=== PATIENT | female | born 1960 | race Two or more races ===

== ENCOUNTER 2024-11-20 14:02 | Inpatient (IN) | payer MEDICAID, OTHER ==
[~2024-11-20] VITALS: Ht 165.1 cm; Wt 96.5 kg
[2024-11-20] MEDS: ALBUTEROL SULF 2.5 MG/0.5ML(0.5%) NEB SOLN NEB ONE ×2 (15:27→20:37)
[2024-11-20] MEDS: IPRATROPIUM BROM 0.5 MG/2.5ML INH SOL NEB ONE ×2 (15:27→20:37)
--- NOTE | 2024-11-20 15:55 | DVH ---
EXAM: XY CHEST PORTABLE HISTORY: sob COMPARISON: None TECHNIQUE: Portable AP view of the chest was performed. FINDINGS: There is elevation of the right hemidiaphragm. There is central interstitial prominence. No pneumotho rax. The heart is not enlarged. IMPRESSION: 1. Central interstitial prominence may be due to reactive airways disease or mild CHF. 2. Elevated right hemidiaphragm.
[2024-11-20] MEDS: SODIUM CHLORIDE 0.9% 1,000 ML IV ONE (16:06)
--- NOTE | 2024-11-20 16:25 | ED.PDOC ---
SOB-HPI HPI Comments 64 year old female presents to the ED with chief complaint of Flu-like symptoms. Patient reports that she has been experiencing worsening SOB with associated cough and fever for the past 2 weeks. Patient relays that she has history of asthma and has been using albuterol, but is out of Advair. Patient states she is finding it hard to reach for things without holding her breath. Patient noted to be draining in the 80s on room air, now at 94% on 4L nasal cannula. Patient states she does not use oxygen at home. 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 Family History Family History: Reviewed,noncontributory to illness Social History Smoker: Non-Smoker Alcohol: Denies ETOH Use Drugs: Denies Drug Use Lives In: Home Constitutional: reports: fever; denies: chills, diaphoresis, fatigue, malaise, sweats, weakness, others EENTM: denies: blurred vision, double vision, ear bleeding, ear discharge, ear drainage, ear pain, ear ringing, eye pain, eye redness, hearing loss, mouth pain, mouth swelling, nasal discharge, nose bleeding, nose congestion, nose pain, photophobia, tearing, throat pain, throat swelling, voice changes, others Respiratory: reports: cough, shortness of breath; denies: hemoptysis, orthopnea, SOB at rest, SOB with excertion, stridor, wheezing, others Cardiovascular: denies: chest pain, dizzy spells, diaphoresis, Dyspnea on exertion, edema, irregular heart beat, left arm pain, lightheadedness, palpitations, PND, syncope, others Gastrointestinal: denies: abdomen distended, abdominal pain, blood streaked bowels, constipated, diarrhea, dysphagia, difficulty swallowing, hematemesis, melena, nausea, poor appetite, poor fluid intake, rectal bleeding, rectal pain, vomiting, others Genitourinary: denies: abnormal vagina bleeding, burning, dyspareunia, dysuria, flank pain, frequency, hematuria, incontinence, pain, , vagina discharge, urgency, others Neurological: denies: dizziness, fainting, headache, left sided numbness, left sided weakness, numbness, paresthesia, pre-existing deficit, right sided numbness, right sided weakness, seizure, speech problems, tingling, tremors, weakness, others Musculoskeletal: denies: back pain, gout, joint pain, joint swelling, muscle pain, muscle stiffness, neck pain, others Integumetry: denies: bruises, change in color, change in hair/nails, dryness, laceration, lesions, lumps, rash, wounds, others Allergic/Immunocompromised: denies: Difficulty Healing, Frequent Infections, Hives, Itching, others Hematologic/Lymphatic: denies: anemia, blood clots, easy bleeding, easy bruising, swollen glands, others Endocrine: denies: excessive hunger, excessive sweating, excessive thirst, excessive urination, flushing, intolerance to cold, intolerance to heat, unexplained weight gain, unexplained weight loss, others Psychiatric: denies: anxiety, bipolar disorder, depression, hopeless, panic disorder, schizophrenia, sleepless, suicidal, others All Other Systems: Reviewed and Negative Physical Exam General Appearance: No Apparent Distress HEENT: Other (Pupils and face symmetric. Moist mucous membranes.) Neck: Full Range of Motion, Normal Inspection Respiratory: Decreased Breath Sounds, No Accessory Muscle Use, No Respiratory Distress, Wheezing Cardiovascular: No Edema, No JVD, Regular Rate/Rhythm Breast Exam: Deferred Gastrointestinal: Non Tender, Soft Genitalia: Deferred Pelvic: Deferred Rectal: Deferred Extremities: Normal inspection, Normal range of motion, Non-tender, No pedal edema Neurologic: Alert (Oriented x4), Normal Affect, Normal Mood, Other (Ambulatory.) Cerebellar Function: NOT DONE Reflexes: NOT DONE Skin: Dry, Normal Color, Warm, NOT DONE Lymphatic: NOT DONE Was a procedure done? Was a procedure done?: No Differential Dx Differential Diagnosis: Asthma, Bronchitis, CHF, COPD, Dysrhythmia, Myocardial infarction, Pneumonia, Respiratory Distress, URI X-Ray, Labs, Meds, VS Vital Signs Date Time Temp Pulse Resp B/P (MAP) Pulse Ox O2 Delivery O2 Flow Rate FiO2 11/20/24 16:19 99.0 108 18 146/75 (98) 94 99.0 11/20/24 16:19 108 18 94 Room Air 4.0 11/20/24 15:27 18 99 Nasal Cannula* 4 36 11/20/24 14:29 120 11/20/24 14:27 100.2 126 18 133/101 (112) 88 100.2 Lab Test 11/20/24 18:26 11/20/24 17:27 11/20/24 17:15 Range/Units Troponin I High Sensitivity < 3 L < 3 L </=34 ng/L White Blood Count 8.7 4.4-10.8 10^3/uL Red Blood Count 4.40 4.0-5.20 10^6/uL Hemoglobin 13.1 12.2-16.2 g/dL Hematocrit 40.5 36.0-46.0 % Mean Corpuscular Volume 92.0 80.0-100.0 fL Mean Corpuscular Hemoglobin 29.9 28.0-32.0 pg Mean Corpuscular Hemoglobin Concent 32.5 32.0-36.0 g/dL Red Cell Distribution Width 13.3 11.8-14.3 % Platelet Count 262 140-450 10^3/uL Mean Platelet Volume 8.5 6.9-10.8 fL Neutrophils (%) (Auto) 60.7 37.0-80.0 % Lymphocytes (%) (Auto) 20.0 10.0-50.0 % Monocytes (%) (Auto) 7.4 0.0-12.0 % Eosinophils (%) (Auto) 11.0 H 0.0-7.0 % Basophils (%) (Auto) 0.9 0.0-2.0 % Neutrophils # (Auto) 5.3 1.6-8.6 10 ^3/uL Lymphocytes # (Auto) 1.7 0.4-5.4 10 ^3/uL Monocytes # (Auto) 0.6 0-1.3 10 ^3/uL Eosinophils # (Auto) 1.0 H 0-0.8 10 ^3/uL Basophils # (Auto) 0.1 0-0.2 10 ^3/uL Nucleated Red Blood Cells 0.0 % Sodium Level 142 136-145 mmol/L Potassium Level 5.0 3.5-5.1 mmol/L Chloride Level 106 98-107 mmol/L Carbon Dioxide Level 29 20-31 mmol/L Anion Gap 7 5-15 Blood Urea Nitrogen 16 9-23 mg/dL Creatinine 0.60 0.550-1.02 mg/dL Glomerular Filtration Rate Calc 101 >90 mL/min BUN/Creatinine Ratio 26.7 H 10.0-20.0 Serum Glucose 98 74-106 mg/dL Lactic Acid Level 1.8 0.4-2.0 mmol/L Calcium Level 9.7 8.7-10.4 mg/dL Total Bilirubin 0.3 0.2-1.0 mg/dL Aspartate Amino Transferase (AST) 28 13-40 U/L Alanine Aminotransferase (ALT) 21 7-40 U/L Alkaline Phosphatase 79 46-116 U/L Lactate Dehydrogenase 276 H 120-246 U/L C-Reactive Protein High Sensitivity 0.32 <1.0 mg/dL B-Type Natriuretic Peptide 12.88 0-100 pg/mL Total Protein 6.4 5.7-8.2 g/dL Albumin 4.3 3.2-4.8 g/dL Influenza Type A Antigen Negative Negative Influenza Type B Antigen Negative Negative SARS-CoV-2 Antigen (Rapid) Negative NEGATIVE Group A Streptococcus Rapid Negative Current Medications Medications (Trade) Dose Ordered Sig/Fabian Route Start Time Stop Time Status Last Admin Sodium Chloride 1,000 ml @ 1,000 mls/hr Q1H ONCE IV 11/20/24 15:15 11/20/24 16:14 DC 11/20/24 16:06 Albuterol (Ventolin Medneb) 5 mg ONCE ONCE NEB 11/20/24 15:15 11/20/24 15:16 DC 11/20/24 15:27 Ipratropium Aldie (Atrovent Medneb) 0.5 mg ONCE ONCE NEB 11/20/24 15:15 11/20/24 15:16 DC 11/20/24 15:27 Ceftriaxone Sodium 50 ml @ 100 mls/hr ONCE ONCE IV 11/20/24 20:00 11/20/24 20:32 DC 11/20/24 22:08 Azithromycin 250 ml @ 125 mls/hr ONCE ONCE IV 11/20/24 20:00 11/20/24 21:59 DC 11/20/24 22:24 Albuterol (Ventolin Medneb) 5 mg ONCE ONCE NEB 11/20/24 20:00 11/20/24 20:31 DC 11/20/24 20:37 Ipratropium Aldie (Atrovent Medneb) 0.5 mg ONCE ONCE NEB 11/20/24 20:00 11/20/24 20:31 DC 11/20/24 20:37 Albuterol (Ventolin Medneb) 2.5 mg Q6H NEB 11/20/24 20:15 11/21/24 00:40 Methylprednisolone Sodium Succinate (Solu Medrol) 125 mg ONCE ONCE IV 11/20/24 20:15 11/20/24 20:31 DC 11/20/24 22:08 PROCEDURE(s): CXRP - CHEST PORTABLE REASON: sob ORDER NUMBER(s): [id number], ACCESSION NUMBER(s): [id number] EXAM: XY CHEST PORTABLE HISTORY: sob COMPARISON: None TECHNIQUE: Portable AP view of the chest was performed. FINDINGS: There is elevation of the right hemidiaphragm. There is central interstitial prominence. No pneumothorax. The heart is not enlarged. IMPRESSION: 1. Central interstitial prominence may be due to reactive airways disease or mild CHF. 2. Elevated right hemidiaphragm. X-Ray, Labs, Meds, VS Comment 64-year-old female with a history of asthma complaining of difficulty breathing and found to have low oxygen saturation on room air Vitals remarkable for temperature 100.2, heart rate 126, BP 133/101, oxygen saturation 88% on room air Exam remarkable for wheezing and diminished breath sounds Rhythm strip independently interpreted by me: Sinus tach, rate 126, no ectopy. Chest x-ray IMPRESSION: 1. Central interstitial prominence may be due to reactive airways disease or mild CHF. 2. Elevated right hemidiaphragm. CBC, CMP, BNP and troponin unremarkable, influenza, strep and COVID negative. Lactic and blood cultures pending. Patient was treated with the following in the ED: 1 L 0.9 normal saline IV bolus, albuterol 5 mg/Atrovent 0.5 mg nebulized x2, Solu-Medrol 125 mg IV, Rocephin 1 g IV, Zithromax 500 mg IV On re-evaluation, patient states her shortness of breath has improved. She is saturating normally on 4 L nasal cannula. Plan is to admit the patient for respiratory support and pulmonology evaluation. Time of 1ST Reevaluation: 17:20 Reevaluation 1ST: Unchanged Patient Education/Counseling: Diagnosis, Treatment Family Education/Counseling: No Family Present Departure 1 Departure Time of Disposition: 20:03 Impression: Primary Impression: Acute respiratory failure Additional Impression: Asthma exacerbation Disposition: 09 ADMITTED INPATIENT Admit to: Tele Condition: Guarded Critical Care Note Critical Care Time?: No Stability Stability form required: No Heart Score Heart Score: Heart Score Response (Comments) Value History N/A 0 EKG N/A 0 Age N/A 0 Risk Factors N/A 0 Troponin N/A 0 Total 0 I personally scribed for DEBORAH TERRELL MD ([email or web address]) on 11/20/24 at 16:25. Electronically submitted by Manpreet Alford ([email or web address]). I personally scribed for DEBORAH TERRELL MD ([email or web address]) on 11/20/24 at 19:40. Electronically submitted by Dada Miller ([email or web address]). DEBORAH TERRELL MD Nov 20, 2024 16:25
[2024-11-20 17:49] LABS: COVID19 ANTIGEN SOFIA FIA NEGATIVE (NEGATIVE); Rapid Influenza A Negative (Negative); Rapid Influenza B Negative (Negative)
[2024-11-20 17:55] LABS: Rapid Strep A Screen-Throat Negative
[2024-11-20 17:56] LABS: Basophils # (auto) 0.1 10 ^3/uL (0-0.2); Basophils % (auto) 0.9 % (0.0-2.0); Hematocrit 40.5 % (36.0-46.0); Hemoglobin 13.1 g/dL (12.2-16.2); Lymphocytes # (auto) 1.7 10 ^3/uL (0.4-5.4); Mean Corpuscular Hemoglobin 29.9 pg (28.0-32.0); Mean Corpuscular Hgb Conc. 32.5 g/dL (32.0-36.0); Monocytes # (auto) 0.6 10 ^3/uL (0-1.3); Monocytes % (auto) 7.4 % (0.0-12.0); Neutrophils # (auto) 5.3 10 ^3/uL (1.6-8.6); Neutrophils % (auto) 60.7 % (37.0-80.0); Platelet Count (auto) 262 10^3/uL (140-450); Red Cell Distribution Width 13.3 % (11.8-14.3); White Blood Cell 8.7 10^3/uL (4.4-10.8)
[2024-11-20 18:16] LABS: Alanine Aminotransferase 21 U/L (7-40); Albumin 4.3 g/dL (3.2-4.8); Alkaline Phosphatase 79 U/L (46-116); Anion Gap 7 (5-15); Aspartate Aminotransferase 28 U/L (13-40); BUN/Creatinine Ratio 26.7 (10.0-20.0); Blood Urea Nitrogen 16 mg/dL (9-23); Calcium 9.7 mg/dL (8.7-10.4); Carbon Dioxide 29 mmol/L (20-31); Chloride 106 mmol/L (98-107); Glucose 98 mg/dL (74-106); Sodium 142 mmol/L (136-145); Total Protein 6.4 g/dL (5.7-8.2)
[2024-11-20 18:17] LABS: Bilirubin, Total 0.3 mg/dL (0.2-1.0)
[2024-11-20] MEDS ORDERED: ACETAMINOPHEN 325 MG TAB PO PRN (20:15)
[2024-11-20] MEDS ORDERED: ONDANSETRON HCL 4 MG/2 ML VIAL IV PRN (20:15)
[2024-11-20] MEDS ORDERED: DOCUSATE SOD 100 MG CAP PO PRN (20:15)
[2024-11-20] MEDS: ALBUTEROL SULF 2.5 MG/0.5ML(0.5%) NEB SOLN NEB SCH (20:15)
[2024-11-20] MEDS ORDERED: HYDROcodone-ACET 5/325MG TAB PO PRN (20:15)
--- NOTE | 2024-11-20 20:20 | DVHHP2 ---
Admitting Diagnosis: Shortness of breaths History of Present Illness 64 year old female presents to the ED with chief complaint of Flu-like symptoms. Patient reports that she has been experiencing worsening SOB with associated cough and fever for the past 2 weeks. Patient relays that she has history of asthma and has been using albuterol, but is out of Advair. Patient states she is finding it hard to reach for things without holding her breath. Patient noted to be draining in the 80s on room air, now at 94% on 4L nasal cannula. Patient states she does not use oxygen at home. 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 [employer]CTOR [employer] CHIROPRA[employer]IC Hx Family History Family History: Reviewed,noncontributory to illness Social History Smoker: Non-Smoker Alcohol: Denies ETOH Use Drugs: Denies Drug Use Lives In: Home Allergies: Coded Allergies: Sulfa Antibiotics (Verified Allergy, Severe, 11/20/24) Current Medications Current Medications Medications (Trade) Dose Ordered Sig/Fabian Route PRN Reason Start Time Stop Time Status Last Admin Sodium Chloride (Saline Lock Ns) 10 ml Q8HR IV 11/20/24 22:00 UNV Docusate Sodium (Colace Capsule) 100 mg BIDPRN PRN PO FOR CONSTIPATION 11/20/24 20:15 UNV Acetaminophen (Tylenol Tablet) 650 mg Q6HP PRN PO PAIN SCALE 1-3 OR TEMP>100.4 11/20/24 20:15 UNV Acetaminophen/ Hydrocodone Bitart (Steen 5/325MG Tab) 1 tab Q4HP PRN PO MODERATE PAIN (4-6 PAIN SCALE) 11/20/24 20:15 UNV Ondansetron HCl (Zofran) 4 mg Q4HP PRN IV NAUSEA / VOMITING 11/20/24 20:15 UNV Enoxaparin Sodium (Lovenox) 40 mg DAILY SC 11/21/24 10:00 UNV Albuterol (Ventolin Medneb) 2.5 mg Q6H NEB 11/20/24 20:15 UNV Prednisone 40 mg DAILY PO 11/21/24 10:00 UNV Vital Signs Vital Signs Date Time Temp Pulse Resp B/P (MAP) Pulse Ox O2 Delivery O2 Flow Rate FiO2 11/20/24 16:19 99.0 108 18 146/75 (98) 94 99.0 11/20/24 16:19 Room Air 4.0 11/20/24 15:27 36 Physical Exam Generally-74 years old woman, well nourished well developed. No apparent distress HEENT-atraumatic, normocephalic Heart-regular rate and rhythm lungs decreased breath sounds in lower lung vázquez Abdomen soft nontender nondistended Musculoskeletal-no edema cyanosis Neuro-AO x3, no focal deficits Results Labs Test 11/20/24 18:26 11/20/24 17:27 11/20/24 17:15 Range/Units Troponin I High Sensitivity < 3 L </=34 ng/L White Blood Count 8.7 4.4-10.8 10^3/uL Red Blood Count 4.40 4.0-5.20 10^6/uL Hemoglobin 13.1 12.2-16.2 g/dL Hematocrit 40.5 36.0-46.0 % Mean Corpuscular Volume 92.0 80.0-100.0 fL Mean Corpuscular Hemoglobin 29.9 28.0-32.0 pg Mean Corpuscular Hemoglobin Concent 32.5 32.0-36.0 g/dL Red Cell Distribution Width 13.3 11.8-14.3 % Platelet Count 262 140-450 10^3/uL Mean Platelet Volume 8.5 6.9-10.8 fL Neutrophils (%) (Auto) 60.7 37.0-80.0 % Lymphocytes (%) (Auto) 20.0 10.0-50.0 % Monocytes (%) (Auto) 7.4 0.0-12.0 % Eosinophils (%) (Auto) 11.0 H 0.0-7.0 % Basophils (%) (Auto) 0.9 0.0-2.0 % Neutrophils # (Auto) 5.3 1.6-8.6 10 ^3/uL Lymphocytes # (Auto) 1.7 0.4-5.4 10 ^3/uL Monocytes # (Auto) 0.6 0-1.3 10 ^3/uL Eosinophils # (Auto) 1.0 H 0-0.8 10 ^3/uL Basophils # (Auto) 0.1 0-0.2 10 ^3/uL Nucleated Red Blood Cells 0.0 % Sodium Level 142 136-145 mmol/L Potassium Level 5.0 3.5-5.1 mmol/L Chloride Level 106 98-107 mmol/L Carbon Dioxide Level 29 20-31 mmol/L Anion Gap 7 5-15 Blood Urea Nitrogen 16 9-23 mg/dL Creatinine 0.60 0.550-1.02 mg/dL Glomerular Filtration Rate Calc 101 >90 mL/min BUN/Creatinine Ratio 26.7 H 10.0-20.0 Serum Glucose 98 74-106 mg/dL Lactic Acid Level 1.8 0.4-2.0 mmol/L Calcium Level 9.7 8.7-10.4 mg/dL Total Bilirubin 0.3 0.2-1.0 mg/dL Aspartate Amino Transferase (AST) 28 13-40 U/L Alanine Aminotransferase (ALT) 21 7-40 U/L Alkaline Phosphatase 79 46-116 U/L B-Type Natriuretic Peptide 12.88 0-100 pg/mL Total Protein 6.4 5.7-8.2 g/dL Albumin 4.3 3.2-4.8 g/dL Influenza Type A Antigen Negative Negative Influenza Type B Antigen Negative Negative SARS-CoV-2 Antigen (Rapid) Negative NEGATIVE Group A Streptococcus Rapid Negative Primary Diagnosis Acute upper respiratory syndrome asthma exacerbation Plan Check VBG Chest x-ray is clear Solu-Medrol 25 mg IV push then 40 mg daily Duo nebs q.6 hours standing Monitor O2 saturation Full code Lovenox for DVT prophylaxis PPI for GI prophylaxis Plan discussed with: Patient Problems List: (1) Upper respiratory symptom (2) Acute respiratory failure Status: Acute Date of Service: Nov 20, 2024 Billing Provider: LIN IVY MD Common Visit Codes: [id number] INP/OBS CARE (MOD) LIN IVY MD Nov 20, 2024 20:20
[2024-11-20 20:38] VITALS: O2SAT 92
[2024-11-20] MEDS: IPRATROPIUM BROM 0.5 MG/2.5ML INH SOL ONE (20:42)
[2024-11-20] MEDS: ALBUTEROL SULF 2.5 MG/0.5ML(0.5%) NEB SOLN ONE (20:43)
[2024-11-20] MEDS: SODIUM CHLOR 0.9% PF (SALINE LOCK) 10ML VIAL/SYR IV SCH (22:08)
[2024-11-20] MEDS: methylPREDNISolone SOD SUCC 125 MG/2 ML VL IV ONE (22:08)
[2024-11-20] MEDS: cefTRIAXone 1GM/50ML D5W 50 ML IV ONE (22:08)
[2024-11-20 22:19] VITALS: PULSE 79; RESP 20; O2SAT 91
[2024-11-20] MEDS: AZITHROMYCIN 500MG/ 250ML 250 ML IV ONE (22:24)
[2024-11-20 22:39] VITALS: BP 163/85; PULSE 78; RESP 16; O2SAT 85; O2SAT 95
[2024-11-21] VITALS (18 sets, daily range): BP systolic 127–159; BP diastolic 66–84; PULSE 19–116; RESP 8–20; TEMP 97.7–98.4; O2SAT 91–99
[2024-11-21 05:57] LABS: Basophils # (auto) 0 10 ^3/uL (0-0.2); Basophils % (auto) 0.4 % (0.0-2.0); Eosinophils # (auto) 0 10 ^3/uL (0-0.8); Eosinophils % (auto) 0.1 % (0.0-7.0); Hematocrit 40.6 % (36.0-46.0); Hemoglobin 13.7 g/dL (12.2-16.2); Lymphocytes # (auto) 0.5 10 ^3/uL (0.4-5.4); Lymphocytes % (auto) 5.6 % (10.0-50.0); Mean Corpuscular Hgb Conc. 33.7 g/dL (32.0-36.0); Monocytes # (auto) 0.1 10 ^3/uL (0-1.3); Monocytes % (auto) 0.7 % (0.0-12.0); Neutrophils % (auto) 93.2 % (37.0-80.0); Nucleated Red Blood Cells % 0.1 %; Platelet Count (auto) 265 10^3/uL (140-450); Red Blood Cells 4.42 10^6/uL (4.0-5.20); Red Cell Distribution Width 13.3 % (11.8-14.3); White Blood Cell 9.6 10^3/uL (4.4-10.8)
[2024-11-21 06:19] LABS: Alanine Aminotransferase 16 U/L (7-40); Alkaline Phosphatase 82 U/L (46-116); Anion Gap 8 (5-15); BUN/Creatinine Ratio 20.3 (10.0-20.0); Blood Urea Nitrogen 15 mg/dL (9-23); Calcium 9.9 mg/dL (8.7-10.4); Carbon Dioxide 28 mmol/L (20-31); Chloride 106 mmol/L (98-107); Potassium 4.8 mmol/L (3.5-5.1); Sodium 142 mmol/L (136-145); Total Protein 7.1 g/dL (5.7-8.2)
[2024-11-21 06:20] LABS: Albumin 4.6 g/dL (3.2-4.8)
[2024-11-21 06:21] LABS: Aspartate Aminotransferase 19 U/L (13-40); Bilirubin, Total 0.4 mg/dL (0.2-1.0)
[2024-11-21 06:27] LABS: Glucose 137 mg/dL (74-106)
[2024-11-21] MEDS: predniSONE 20 MG TAB PO SCH (09:44)
[2024-11-21] MEDS: ENOXAPARIN SOD 40 MG/0.4 ML SYRINGE SC SCH (09:45)
--- NOTE | 2024-11-21 11:46 | DVHPN2 ---
Reviewed: Care Plan, H&P, Labs, Medications, Previous Orders, Radiology Changes from previous H/P or p: No Changes Objective Vitals Vital Signs Date Time Temp Pulse Resp B/P (MAP) Pulse Ox O2 Delivery O2 Flow Rate FiO2 11/21/24 11:39 105 18 98 11/21/24 11:31 Nasal Cannula 2.0 11/21/24 11:31 28 11/21/24 09:00 97.7 156/84 (108) 97.7 Intake/Output Intake and Output 11/21/24 07:00 Intake Total 200 ml Balance 200 ml Intake Oral 200 ml # Voids 2 # Bowel Movements 1 Medications Current Medications Medications Dose Ordered Sig/Fabian Route Start Time Stop Time Status Last Admin Dose Admin Sodium Chloride 10 ml Q8HR IV 11/20/24 22:00 11/21/24 05:33 10 ML Docusate Sodium 100 mg BIDPRN PRN PO 11/20/24 20:15 Acetaminophen 650 mg Q6HP PRN PO 11/20/24 20:15 Acetaminophen/ Hydrocodone Bitart 1 tab Q4HP PRN PO 11/20/24 20:15 Ondansetron HCl 4 mg Q4HP PRN IV 11/20/24 20:15 Enoxaparin Sodium 40 mg DAILY SC 11/21/24 10:00 11/21/24 09:45 40 MG Albuterol 2.5 mg Q6H NEB 11/20/24 20:15 11/21/24 11:30 2.5 MG Prednisone 40 mg DAILY PO 11/21/24 10:00 11/21/24 09:44 40 MG Laboratory Results Laboratory Tests 11/21/24 04:49 Chemistry Test 11/20/24 17:27 11/21/24 04:49 Albumin 4.3 g/dL (3.2-4.8) 4.6 g/dL (3.2-4.8) Calcium Level 9.7 mg/dL (8.7-10.4) 9.9 mg/dL (8.7-10.4) Total Protein 6.4 g/dL (5.7-8.2) 7.1 g/dL (5.7-8.2) Cardiac Markers Test 11/20/24 17:27 B-Type Natriuretic Peptide 12.88 pg/mL (0-100) LFT Test 11/20/24 17:27 11/21/24 04:49 Alanine Aminotransferase (ALT) 21 U/L (7-40) 16 U/L (7-40) Alkaline Phosphatase 79 U/L (46-116) 82 U/L (46-116) Aspartate Amino Transferase (AST) 28 U/L (13-40) 19 U/L (13-40) Total Bilirubin 0.3 mg/dL (0.2-1.0) 0.4 mg/dL (0.2-1.0) Blood Gas Results Test 11/20/24 20:35 FiO2 % 21.0 Labs and/or images reviewed: Labs reviewed by me, Image(s) reviewed by me Assessment/Plan Assessment/Plan Hypoxic respiratory failure Asthma exacerbation: Albuterol Atrovent Solu-Medrol Possible community-acquired pneumonia: Rocephin Homeless: Social service consult Plan discussed with: Patient Date of Service: Nov 21, 2024 Billing Provider: ESAU WYATT MD Common Visit Codes: [id number] INP/OBS CARE(HIGH) ESAU WYATT MD Nov 21, 2024 11:46
[2024-11-21 12:17] LABS: Urine Bacteria None Seen /hpf (None Seen)
[2024-11-21 12:38] LABS: Urine Blood Negative /uL (Negative); Urine Clarity Clear (Clear); Urine Color Light-Yellow (Yellow); Urine Protein, UAD Negative (Negative); Urine Specific Gravity 1.017 (1.001-1.035); Urine Squamous Epithelial Cell FEW /hpf (<5); Urine Urobilinogen Normal (Negative); Urine WBC 14 /HPF (0-5); Urine pH 6.5 (5.0-9.0)
[2024-11-21] MEDS: cefTRIAXone 1GM/50ML D5W 50 ML IV ONE (14:09)
[2024-11-22] VITALS (17 sets, daily range): BP systolic 114–155; BP diastolic 55–83; PULSE 71–92; RESP 16–20; TEMP 98.2–98.9; O2SAT 20–100
[2024-11-22 07:40] LABS: Alanine Aminotransferase 19 U/L (7-40); Albumin 4.2 g/dL (3.2-4.8); Alkaline Phosphatase 72 U/L (46-116); Anion Gap 10 (5-15); Aspartate Aminotransferase 18 U/L (13-40); BUN/Creatinine Ratio 36.5 (10.0-20.0); Blood Urea Nitrogen 23 mg/dL (9-23); Calcium 9.7 mg/dL (8.7-10.4); Carbon Dioxide 27 mmol/L (20-31); Chloride 105 mmol/L (98-107); Glucose 102 mg/dL (74-106); Potassium 4.6 mmol/L (3.5-5.1); Sodium 142 mmol/L (136-145); Total Protein 6.3 g/dL (5.7-8.2)
[2024-11-22 07:41] LABS: Bilirubin, Total 0.3 mg/dL (0.2-1.0)
[2024-11-22 07:47] LABS: Basophils # (auto) 0 10 ^3/uL (0-0.2); Basophils % (auto) 0.4 % (0.0-2.0); Eosinophils # (auto) 0 10 ^3/uL (0-0.8); Eosinophils % (auto) 0.4 % (0.0-7.0); Hematocrit 38.4 % (36.0-46.0); Hemoglobin 12.7 g/dL (12.2-16.2); Lymphocytes # (auto) 1.7 10 ^3/uL (0.4-5.4); Lymphocytes % (auto) 12.9 % (10.0-50.0); Mean Corpuscular Hemoglobin 30.4 pg (28.0-32.0); Mean Corpuscular Volume 92.3 fL (80.0-100.0); Monocytes # (auto) 0.8 10 ^3/uL (0-1.3); Monocytes % (auto) 6.4 % (0.0-12.0); Neutrophils # (auto) 10.4 10 ^3/uL (1.6-8.6); Neutrophils % (auto) 79.9 % (37.0-80.0); Nucleated Red Blood Cells % 0.1 %; Platelet Count (auto) 242 10^3/uL (140-450); Red Blood Cells 4.16 10^6/uL (4.0-5.20); Red Cell Distribution Width 13.5 % (11.8-14.3); White Blood Cell 12.9 10^3/uL (4.4-10.8)
--- NOTE | 2024-11-22 08:26 | DVHPN2 ---
Reviewed: Care Plan, H&P, Labs, Medications, Previous Orders, Radiology Changes from previous H/P or p: No Changes Objective Vitals Vital Signs Date Time Temp Pulse Resp B/P (MAP) Pulse Ox O2 Delivery O2 Flow Rate FiO2 11/22/24 07:17 71 18 20 11/22/24 07:13 Nasal Cannula* 2 28 11/22/24 05:00 98.2 121/81 (94) 98.2 Intake/Output Intake and Output 11/22/24 07:00 Intake Total 1400 ml Balance 1400 ml Intake Oral 1350 ml IV Total 50 ml # Voids 8 # Bowel Movements 1 Medications Current Medications Medications Dose Ordered Sig/Fabian Route Start Time Stop Time Status Last Admin Dose Admin Sodium Chloride 10 ml Q8HR IV 11/20/24 22:00 11/22/24 05:39 10 ML Docusate Sodium 100 mg BIDPRN PRN PO 11/20/24 20:15 Acetaminophen 650 mg Q6HP PRN PO 11/20/24 20:15 Acetaminophen/ Hydrocodone Bitart 1 tab Q4HP PRN PO 11/20/24 20:15 Ondansetron HCl 4 mg Q4HP PRN IV 11/20/24 20:15 Enoxaparin Sodium 40 mg DAILY SC 11/21/24 10:00 11/21/24 09:45 40 MG Albuterol 2.5 mg Q6H NEB 11/20/24 20:15 11/22/24 07:13 2.5 MG Prednisone 40 mg DAILY PO 11/21/24 10:00 11/21/24 09:44 40 MG Laboratory Results Laboratory Tests 11/22/24 06:27 Chemistry Test 11/22/24 06:27 Albumin 4.2 g/dL (3.2-4.8) Calcium Level 9.7 mg/dL (8.7-10.4) Total Protein 6.3 g/dL (5.7-8.2) LFT Test 11/22/24 06:27 Alanine Aminotransferase (ALT) 19 U/L (7-40) Alkaline Phosphatase 72 U/L (46-116) Aspartate Amino Transferase (AST) 18 U/L (13-40) Total Bilirubin 0.3 mg/dL (0.2-1.0) Urinalysis Test 11/21/24 12:15 Urine Color Light-yellow (Yellow) Urine Clarity Clear (Clear) Urine pH 6.5 (5.0-9.0) Urine Specific [place] 1.017 (1.001-1.035) Urine Protein Negative (Negative) Urine Ketones Negative (Negative) Urine Blood Negative /uL (Negative) Urine Nitrite Negative (Negative) Urine Bilirubin Negative (Negative) Urine Urobilinogen Normal mg/dL (Negative) Urine Leukocyte Esterase 3+ /uL (Negative) Urine RBC 2 /hpf (0 - 4) Urine Microscopic WBC 14 /HPF (0-5) H Urine Squamous Epithelial Cells Few /hpf (<5) Urine Bacteria None seen /hpf (None Seen) Urine Glucose Normal mg/dL (Normal) Microbiology Microbiology Date/Time Source Procedure Growth Status 11/20/24 17:27 Blood Blood Culture - Preliminary NO GROWTH AFTER 24 HOURS OF INCUBATION. Resulted 11/20/24 17:15 Throat Nose/Throat Culture - Preliminary Resulted Labs and/or images reviewed: Labs reviewed by me, Image(s) reviewed by me Assessment/Plan Assessment/Plan Hypoxic respiratory failure Asthma exacerbation: Albuterol Atrovent Solu-Medrol Possible community-acquired pneumonia: Rocephin, azithromycin History of COVID pneumonia History of RSV Homeless: Lives in a car. 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
--- NOTE | 2024-11-22 08:47 | ECG ---
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
[2024-11-22] MEDS: AZITHROMYCIN 500MG/ 250ML 250 ML IV SCH (09:27)
[2024-11-22] MEDS: cefTRIAXone 1GM/50ML D5W 50 ML IV SCH (09:27)
[2024-11-23] VITALS (17 sets, daily range): BP systolic 128–147; BP diastolic 54–85; PULSE 70–92; RESP 16–20; TEMP 97.9–98.7; O2SAT 95–100
[2024-11-23 06:29] LABS: Basophils # (auto) 0 10 ^3/uL (0-0.2); Basophils % (auto) 0.4 % (0.0-2.0); Eosinophils # (auto) 0 10 ^3/uL (0-0.8); Eosinophils % (auto) 0.3 % (0.0-7.0); Hematocrit 35.8 % (36.0-46.0); Hemoglobin 11.9 g/dL (12.2-16.2); Mean Corpuscular Hemoglobin 30.5 pg (28.0-32.0); Mean Corpuscular Hgb Conc. 33.1 g/dL (32.0-36.0); Mean Corpuscular Volume 91.9 fL (80.0-100.0); Monocytes # (auto) 0.6 10 ^3/uL (0-1.3); Neutrophils # (auto) 7.1 10 ^3/uL (1.6-8.6); Neutrophils % (auto) 72.3 % (37.0-80.0); Platelet Count (auto) 232 10^3/uL (140-450); Red Blood Cells 3.89 10^6/uL (4.0-5.20); Red Cell Distribution Width 13.3 % (11.8-14.3); White Blood Cell 9.7 10^3/uL (4.4-10.8)
[2024-11-23 06:41] LABS: Alanine Aminotransferase 17 U/L (7-40); Albumin 3.7 g/dL (3.2-4.8); Alkaline Phosphatase 60 U/L (46-116); Anion Gap 9 (5-15); Aspartate Aminotransferase 16 U/L (13-40); BUN/Creatinine Ratio 27.9 (10.0-20.0); Blood Urea Nitrogen 17 mg/dL (9-23); Calcium 9.3 mg/dL (8.7-10.4); Carbon Dioxide 27 mmol/L (20-31); Chloride 106 mmol/L (98-107); Glucose 105 mg/dL (74-106); Potassium 4.2 mmol/L (3.5-5.1); Sodium 142 mmol/L (136-145); Total Protein 5.8 g/dL (5.7-8.2)
[2024-11-23 06:42] LABS: Bilirubin, Total 0.3 mg/dL (0.2-1.0)
--- NOTE | 2024-11-23 08:41 | DVHPN2 ---
Reviewed: Care Plan, H&P, Labs, Medications, Previous Orders, Radiology Changes from previous H/P or p: No Changes Objective Vitals Vital Signs Date Time Temp Pulse Resp B/P (MAP) Pulse Ox O2 Delivery O2 Flow Rate FiO2 11/23/24 07:06 92 18 99 11/23/24 06:56 Nasal Cannula 2.0 11/23/24 06:56 28 11/23/24 05:00 98.5 128/73 (91) 98.5 Intake/Output Intake and Output 11/23/24 07:00 Intake Total 2180 ml Balance 2180 ml Intake Oral 1880 ml IV Total 300 ml # Voids 6 # Bowel Movements 1 Medications Current Medications Medications Dose Ordered Sig/Fabian Route Start Time Stop Time Status Last Admin Dose Admin Sodium Chloride 10 ml Q8HR IV 11/20/24 22:00 11/23/24 05:47 10 ML Docusate Sodium 100 mg BIDPRN PRN PO 11/20/24 20:15 Acetaminophen 650 mg Q6HP PRN PO 11/20/24 20:15 Acetaminophen/ Hydrocodone Bitart 1 tab Q4HP PRN PO 11/20/24 20:15 Ondansetron HCl 4 mg Q4HP PRN IV 11/20/24 20:15 Enoxaparin Sodium 40 mg DAILY SC 11/21/24 10:00 11/22/24 10:02 40 MG Albuterol 2.5 mg Q6H NEB 11/20/24 20:15 11/23/24 06:56 2.5 MG Prednisone 40 mg DAILY PO 11/21/24 10:00 11/22/24 09:28 40 MG Ceftriaxone Sodium 50 ml @ 100 mls/hr DAILY@09 IV 11/22/24 09:00 11/23/24 08:12 100 MLS/HR Azithromycin 250 ml @ 125 mls/hr DAILY IV 11/22/24 10:00 11/22/24 09:27 125 MLS/HR Laboratory Results Laboratory Tests 11/23/24 05:14 Chemistry Test 11/23/24 05:14 Albumin 3.7 g/dL (3.2-4.8) Calcium Level 9.3 mg/dL (8.7-10.4) Total Protein 5.8 g/dL (5.7-8.2) LFT Test 11/23/24 05:14 Alanine Aminotransferase (ALT) 17 U/L (7-40) Alkaline Phosphatase 60 U/L (46-116) Aspartate Amino Transferase (AST) 16 U/L (13-40) Total Bilirubin 0.3 mg/dL (0.2-1.0) Urinalysis Test 11/21/24 12:15 Urine Color Light-yellow (Yellow) Urine Clarity Clear (Clear) Urine pH 6.5 (5.0-9.0) Urine Specific [place] 1.017 (1.001-1.035) Urine Protein Negative (Negative) Urine Ketones Negative (Negative) Urine Blood Negative /uL (Negative) Urine Nitrite Negative (Negative) Urine Bilirubin Negative (Negative) Urine Urobilinogen Normal mg/dL (Negative) Urine Leukocyte Esterase 3+ /uL (Negative) Urine RBC 2 /hpf (0 - 4) Urine Microscopic WBC 14 /HPF (0-5) H Urine Squamous Epithelial Cells Few /hpf (<5) Urine Bacteria None seen /hpf (None Seen) Urine Glucose Normal mg/dL (Normal) Microbiology Microbiology Date/Time Source Procedure Growth Status 11/20/24 17:27 Blood Blood Culture - Preliminary NO GROWTH AFTER 48 HOURS OF INCUBATION. Resulted 11/20/24 17:15 Throat Nose/Throat Culture - Preliminary Resulted Labs and/or images reviewed: Labs reviewed by me, Image(s) reviewed by me Assessment/Plan Assessment/Plan Acute Hypoxic respiratory failure Asthma exacerbation: Albuterol Atrovent Solu-Medrol Possible community-acquired pneumonia: Rocephin, azithromycin History of COVID pneumonia History of RSV Flu test negative COVID test negative Homeless: Lives in a car. 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
[2024-11-24] VITALS (18 sets, daily range): BP systolic 128–159; BP diastolic 62–97; PULSE 68–89; RESP 16–20; TEMP 97.8–98.4; O2SAT 91–100
[2024-11-24 07:52] LABS: Basophils # (auto) 0 10 ^3/uL (0-0.2); Basophils % (auto) 0.5 % (0.0-2.0); Eosinophils # (auto) 0.1 10 ^3/uL (0-0.8); Eosinophils % (auto) 0.7 % (0.0-7.0); Hematocrit 38.4 % (36.0-46.0); Hemoglobin 12.7 g/dL (12.2-16.2); Lymphocytes # (auto) 2.4 10 ^3/uL (0.4-5.4); Lymphocytes % (auto) 25.1 % (10.0-50.0); Mean Corpuscular Hemoglobin 30.3 pg (28.0-32.0); Mean Corpuscular Volume 91.7 fL (80.0-100.0); Monocytes # (auto) 0.8 10 ^3/uL (0-1.3); Monocytes % (auto) 8.1 % (0.0-12.0); Neutrophils # (auto) 6.2 10 ^3/uL (1.6-8.6); Neutrophils % (auto) 65.6 % (37.0-80.0); Nucleated Red Blood Cells % 0.1 %; Platelet Count (auto) 222 10^3/uL (140-450); Red Blood Cells 4.19 10^6/uL (4.0-5.20); Red Cell Distribution Width 13.2 % (11.8-14.3); White Blood Cell 9.5 10^3/uL (4.4-10.8)
[2024-11-24 08:11] LABS: Alanine Aminotransferase 18 U/L (7-40); Albumin 3.9 g/dL (3.2-4.8); Alkaline Phosphatase 67 U/L (46-116); Anion Gap 6 (5-15); Aspartate Aminotransferase 16 U/L (13-40); BUN/Creatinine Ratio 28.1 (10.0-20.0); Blood Urea Nitrogen 18 mg/dL (9-23); Calcium 9.9 mg/dL (8.7-10.4); Chloride 104 mmol/L (98-107); Glucose 93 mg/dL (74-106); Potassium 4.8 mmol/L (3.5-5.1); Sodium 143 mmol/L (136-145); Total Protein 6.1 g/dL (5.7-8.2)
[2024-11-24 08:12] LABS: Bilirubin, Total 0.4 mg/dL (0.2-1.0)
[2024-11-24 08:15] LABS: Carbon Dioxide 33 mmol/L (20-31)
--- NOTE | 2024-11-24 09:23 | DVHPN2 ---
Reviewed: Care Plan, H&P, Labs, Medications, Previous Orders, Radiology Changes from previous H/P or p: No Changes Objective Vitals Vital Signs Date Time Temp Pulse Resp B/P (MAP) Pulse Ox O2 Delivery O2 Flow Rate FiO2 11/24/24 08:05 98.4 89 18 150/78 (102) 96 98.4 11/24/24 06:26 Nasal Cannula* 1 24 Intake/Output Intake and Output 11/24/24 07:00 Intake Total 1830 ml Balance 1830 ml Intake Oral 1830 ml # Voids 8 # Bowel Movements 1 Medications Current Medications Medications Dose Ordered Sig/Fabian Route Start Time Stop Time Status Last Admin Dose Admin Sodium Chloride 10 ml Q8HR IV 11/20/24 22:00 11/24/24 06:26 10 ML Docusate Sodium 100 mg BIDPRN PRN PO 11/20/24 20:15 Acetaminophen 650 mg Q6HP PRN PO 11/20/24 20:15 Acetaminophen/ Hydrocodone Bitart 1 tab Q4HP PRN PO 11/20/24 20:15 Ondansetron HCl 4 mg Q4HP PRN IV 11/20/24 20:15 Enoxaparin Sodium 40 mg DAILY SC 11/21/24 10:00 11/23/24 09:52 40 MG Prednisone 40 mg DAILY PO 11/21/24 10:00 11/23/24 09:52 40 MG Ceftriaxone Sodium 50 ml @ 100 mls/hr DAILY@09 IV 11/22/24 09:00 11/24/24 08:25 100 MLS/HR Azithromycin 250 ml @ 125 mls/hr DAILY IV 11/22/24 10:00 11/23/24 09:52 125 MLS/HR Albuterol 2.5 mg Q6H NEB 11/24/24 12:00 Laboratory Results Laboratory Tests 11/24/24 05:35 Chemistry Test 11/24/24 05:35 Albumin 3.9 g/dL (3.2-4.8) Calcium Level 9.9 mg/dL (8.7-10.4) Total Protein 6.1 g/dL (5.7-8.2) LFT Test 11/24/24 05:35 Alanine Aminotransferase (ALT) 18 U/L (7-40) Alkaline Phosphatase 67 U/L (46-116) Aspartate Amino Transferase (AST) 16 U/L (13-40) Total Bilirubin 0.4 mg/dL (0.2-1.0) Urinalysis Test 11/21/24 12:15 Urine Color Light-yellow (Yellow) Urine Clarity Clear (Clear) Urine pH 6.5 (5.0-9.0) Urine Specific [place] 1.017 (1.001-1.035) Urine Protein Negative (Negative) Urine Ketones Negative (Negative) Urine Blood Negative /uL (Negative) Urine Nitrite Negative (Negative) Urine Bilirubin Negative (Negative) Urine Urobilinogen Normal mg/dL (Negative) Urine Leukocyte Esterase 3+ /uL (Negative) Urine RBC 2 /hpf (0 - 4) Urine Microscopic WBC 14 /HPF (0-5) H Urine Squamous Epithelial Cells Few /hpf (<5) Urine Bacteria None seen /hpf (None Seen) Urine Glucose Normal mg/dL (Normal) Microbiology Microbiology Date/Time Source Procedure Growth Status 11/20/24 17:27 Blood Blood Culture - Preliminary NO GROWTH AFTER 72 HOURS OF INCUBATION. Resulted 11/20/24 17:15 Throat Nose/Throat Culture - Final Complete Labs and/or images reviewed: Labs reviewed by me, Image(s) reviewed by me Assessment/Plan Assessment/Plan Acute Hypoxic respiratory failure, ABG shows severe hypoxia, consult for pulmonology Dr. 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
--- NOTE | 2024-11-24 10:33 | DVHINCON2 ---
Date of service: Nov 24, 2024 Referring Physician natasha weller Reason for Consultation hypoxemia History of Present Illness HPI 64 yo female, frequent bronchitis and pneumonias following COVID, h/o asthma, presented with cough, wheezing and shortness of breath, pt desaturating requiring supplemental 02. CXR shows interst markings and elevated right césar- diaphragm Past Medical History Patient Family History: Patient reports no known family medical history. H&P Exam Vital Signs Vital Signs Date Time Temp Pulse Resp B/P (MAP) Pulse Ox O2 Delivery O2 Flow Rate FiO2 11/24/24 08:05 98.4 89 18 150/78 (102) 96 98.4 11/24/24 06:26 Nasal Cannula* 1 24 Labs/Xrays Labs Test 11/24/24 05:35 11/21/24 12:15 11/20/24 20:35 11/20/24 18:26 Range/Units White Blood Count 9.5 4.4-10.8 10^3/uL Red Blood Count 4.19 4.0-5.20 10^6/uL Hemoglobin 12.7 12.2-16.2 g/dL Hematocrit 38.4 36.0-46.0 % Mean Corpuscular Volume 91.7 80.0-100.0 fL Mean Corpuscular Hemoglobin 30.3 28.0-32.0 pg Mean Corpuscular Hemoglobin Concent 33.0 32.0-36.0 g/dL Red Cell Distribution Width 13.2 11.8-14.3 % Platelet Count 222 140-450 10^3/uL Mean Platelet Volume 9.1 6.9-10.8 fL Neutrophils (%) (Auto) 65.6 37.0-80.0 % Lymphocytes (%) (Auto) 25.1 10.0-50.0 % Monocytes (%) (Auto) 8.1 0.0-12.0 % Eosinophils (%) (Auto) 0.7 0.0-7.0 % Basophils (%) (Auto) 0.5 0.0-2.0 % Neutrophils # (Auto) 6.2 1.6-8.6 10 ^3/uL Lymphocytes # (Auto) 2.4 0.4-5.4 10 ^3/uL Monocytes # (Auto) 0.8 0-1.3 10 ^3/uL Eosinophils # (Auto) 0.1 0-0.8 10 ^3/uL Basophils # (Auto) 0 0-0.2 10 ^3/uL Nucleated Red Blood Cells 0.1 % Sodium Level 143 136-145 mmol/L Potassium Level 4.8 3.5-5.1 mmol/L Chloride Level 104 98-107 mmol/L Carbon Dioxide Level 33 H 20-31 mmol/L Anion Gap 6 5-15 Blood Urea Nitrogen 18 9-23 mg/dL Creatinine 0.64 0.550-1.02 mg/dL Glomerular Filtration Rate Calc 99 >90 mL/min BUN/Creatinine Ratio 28.1 H 10.0-20.0 Serum Glucose 93 74-106 mg/dL Calcium Level 9.9 8.7-10.4 mg/dL Total Bilirubin 0.4 0.2-1.0 mg/dL Aspartate Amino Transferase (AST) 16 13-40 U/L Alanine Aminotransferase (ALT) 18 7-40 U/L Alkaline Phosphatase 67 46-116 U/L Total Protein 6.1 5.7-8.2 g/dL Albumin 3.9 3.2-4.8 g/dL Urine Color Light-yellow Yellow Urine Clarity Clear Clear Urine pH 6.5 5.0-9.0 Urine Specific [place] 1.017 1.001-1.035 Urine Protein Negative Negative Urine Ketones Negative Negative Urine Blood Negative Negative /uL Urine Nitrite Negative Negative Urine Bilirubin Negative Negative Urine Urobilinogen Normal Negative mg/dL Urine Leukocyte Esterase 3+ Negative /uL Urine RBC 2 0 - 4 /hpf Urine Microscopic WBC 14 H 0-5 /HPF Urine Squamous Epithelial Cells Few <5 /hpf Urine Bacteria None seen None Seen /hpf Urine Glucose Normal Normal mg/dL Blood Gas Specimen Type Venous Blood Gas Sample Site Vbg - n/a Blood Gas Patient Temperature 37.0 Arterial Blood Date Drawn [id number] Sushil Test N/a Venous Blood pH 7.313 L 7.320-7.430 Venous Blood pCO2 at Patient Temp 60.4 *H 38.0-54.0 mmHg Venous Blood pO2 at Patient Temp < 36.5 23.0-48.0 mmHg Venous Blood HCO3 29.9 H 22.0-29.0 mmol/L Venous Blood Base Excess 2.1 -2.0-3.0 mmol/L Blood Gas Modality Room air FiO2 % 21.0 Blood Gas Critical Value Read Back Yes Blood Gas Notified Whom tamiko Palacio md Blood Gas Notified Time [id number] Blood Gas Notified By daniel Leger rrt Troponin I High Sensitivity < 3 L </=34 ng/L Test 11/20/24 17:27 11/20/24 17:15 Range/Units Lactic Acid Level 1.8 0.4-2.0 mmol/L Lactate Dehydrogenase 276 H 120-246 U/L C-Reactive Protein High Sensitivity 0.32 <1.0 mg/dL B-Type Natriuretic Peptide 12.88 0-100 pg/mL Influenza Type A Antigen Negative Negative Influenza Type B Antigen Negative Negative SARS-CoV-2 Antigen (Rapid) Negative NEGATIVE Group A Streptococcus Rapid Negative Microbiology Date/Time Source Procedure Growth Status 11/20/24 17:27 Blood Blood Culture - Preliminary NO GROWTH AFTER 72 HOURS OF INCUBATION. Resulted 11/20/24 17:15 Throat Nose/Throat Culture - Final Complete Assessment/Plan Plan pneumonia asthma hypoxemia recommendations home 02 eval steroids with taper abx alb/atrovent f/up with asthma management plan Plan discussed with: Other ALFONZO OLMEDO MD Nov 24, 2024 10:33
--- NOTE | 2024-11-24 10:43 | DVH ---
CT CHEST WITHOUT CONTRAST INDICATION: Acute hypoxic respiratory failure : 64 old Female Acute hypoxic respiratory failure EXAM DATE: 11/24/2024 09:50 AM COMPARISON: None RADIATION DOSE: CTDIvol: 21.82 mGy, DLP: 734.97 mGy*cm PROCEDURE: Helical CT images were obtained of the chest without intravenous contrast. Sagittal and c oronal reconstructions are provided. ADDITIONAL IMAGES / REFORMATS: None All CT scans at this medical facility are performed using dose modulation techniques as appropriate t o a performed exam including the following: Automated exposure control was utilized; adjustment of th e MA and/or KV according to patient size; and use of iterative reconstruction technique. FINDINGS: Bones: Scattered degenerative changes are noted. Visualized Abdomen: Non obstructive right kidney stone. Chest Wall: Normal. Soft tissues: Normal. Mediastinum: Normal. Heart: Coronary artery calcifications are noted. Vessels: Normal. Lymph Nodes: Normal. Pleura: Normal. Airways: Normal. Lung: Right basilar atelectasis with prominent elevation of the right hemidiaphragm. Other: None IMPRESSION: Right basilar atelectasis with prominent elevation of the right hemidiaphragm.
[2024-11-24] MEDS: ALBUTEROL SULF 2.5 MG/0.5ML(0.5%) NEB SOLN NEB SCH (11:29)
[2024-11-24 13:39] LABS: Base Excess 0.5 mmol/L (-2.0-3.0)
[2024-11-25] VITALS (13 sets, daily range): BP systolic 137–150; BP diastolic 75–88; PULSE 62–93; RESP 14–18; TEMP 97.9–99.1; O2SAT 90–100
[2024-11-25 08:28] LABS: Basophils # (auto) 0.1 10 ^3/uL (0-0.2); Basophils % (auto) 0.6 % (0.0-2.0); Eosinophils # (auto) 0.1 10 ^3/uL (0-0.8); Hematocrit 39.2 % (36.0-46.0); Lymphocytes # (auto) 2.7 10 ^3/uL (0.4-5.4); Lymphocytes % (auto) 28.7 % (10.0-50.0); Mean Corpuscular Hemoglobin 30.2 pg (28.0-32.0); Mean Corpuscular Volume 91.4 fL (80.0-100.0); Monocytes # (auto) 0.8 10 ^3/uL (0-1.3); Monocytes % (auto) 8.1 % (0.0-12.0); Neutrophils # (auto) 5.9 10 ^3/uL (1.6-8.6); Neutrophils % (auto) 61.6 % (37.0-80.0); Platelet Count (auto) 230 10^3/uL (140-450); Red Blood Cells 4.29 10^6/uL (4.0-5.20); Red Cell Distribution Width 13.3 % (11.8-14.3); White Blood Cell 9.5 10^3/uL (4.4-10.8)
[2024-11-25] MEDS ORDERED: AZIT500T66 PO (08:33)
[2024-11-25] MEDS ORDERED: FLUT250M2 INH (08:33)
[2024-11-25] MEDS ORDERED: METH4PAK PO (08:33)
--- NOTE | 2024-11-25 08:35 | DVHPN2 ---
Reviewed: Care Plan, H&P, Labs, Medications, Previous Orders, Radiology Changes from previous H/P or p: No Changes Objective Vitals Vital Signs Date Time Temp Pulse Resp B/P (MAP) Pulse Ox O2 Delivery O2 Flow Rate FiO2 11/25/24 06:29 81 14 100 11/25/24 06:24 Nasal Cannula* 2 11/25/24 05:00 98.0 150/88 (108) 98.0 Intake/Output Intake and Output 11/25/24 06:59 Intake Total 1860 ml Output Total 500 ml Balance 1360 ml Intake Oral 1860 ml Output Urine Total 500 ml # Voids 13 # Bowel Movements 3 Medications Current Medications Medications Dose Ordered Sig/Fabian Route Start Time Stop Time Status Last Admin Dose Admin Sodium Chloride 10 ml Q8HR IV 11/20/24 22:00 11/25/24 06:04 10 ML Docusate Sodium 100 mg BIDPRN PRN PO 11/20/24 20:15 Acetaminophen 650 mg Q6HP PRN PO 11/20/24 20:15 Acetaminophen/ Hydrocodone Bitart 1 tab Q4HP PRN PO 11/20/24 20:15 Ondansetron HCl 4 mg Q4HP PRN IV 11/20/24 20:15 Enoxaparin Sodium 40 mg DAILY SC 11/21/24 10:00 11/24/24 10:27 40 MG Prednisone 40 mg DAILY PO 11/21/24 10:00 11/24/24 09:24 40 MG Ceftriaxone Sodium 50 ml @ 100 mls/hr DAILY@09 IV 11/22/24 09:00 11/25/24 08:28 100 MLS/HR Azithromycin 250 ml @ 125 mls/hr DAILY IV 11/22/24 10:00 11/24/24 09:24 125 MLS/HR Albuterol 2.5 mg Q6H NEB 11/24/24 12:00 11/25/24 06:22 2.5 MG Laboratory Results Laboratory Tests 11/25/24 06:00 Chemistry Test 11/25/24 06:00 Albumin Pending Calcium Level Pending Total Protein Pending LFT Test 11/25/24 06:00 Alanine Aminotransferase (ALT) Pending Alkaline Phosphatase Pending Aspartate Amino Transferase (AST) Pending Total Bilirubin Pending Urinalysis Test 11/21/24 12:15 Urine Color Light-yellow (Yellow) Urine Clarity Clear (Clear) Urine pH 6.5 (5.0-9.0) Urine Specific [place] 1.017 (1.001-1.035) Urine Protein Negative (Negative) Urine Ketones Negative (Negative) Urine Blood Negative /uL (Negative) Urine Nitrite Negative (Negative) Urine Bilirubin Negative (Negative) Urine Urobilinogen Normal mg/dL (Negative) Urine Leukocyte Esterase 3+ /uL (Negative) Urine RBC 2 /hpf (0 - 4) Urine Microscopic WBC 14 /HPF (0-5) H Urine Squamous Epithelial Cells Few /hpf (<5) Urine Bacteria None seen /hpf (None Seen) Urine Glucose Normal mg/dL (Normal) Blood Gas Results Test 11/24/24 13:30 Arterial Blood pH 7.432 (7.350-7.450) FiO2 % 21.0 Microbiology Microbiology Date/Time Source Procedure Growth Status 11/20/24 17:27 Blood Blood Culture - Preliminary NO GROWTH AFTER 72 HOURS OF INCUBATION. 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
--- NOTE | 2024-11-25 08:39 | DVHDS2 ---
Discharge Summary Date of Admission Nov 20, 2024 at 20:15 Date of Discharge: Nov 25, 2024 Admitting Diagnosis Shortness of breath Wounds: None Labs/Diagnostic Data: Laboratory Results Test 11/25/24 06:00 11/24/24 13:30 11/21/24 12:15 11/20/24 20:35 White Blood Count 9.5 10^3/uL (4.4-10.8) Red Blood Count 4.29 10^6/uL (4.0-5.20) Hemoglobin 13.0 g/dL (12.2-16.2) Hematocrit 39.2 % (36.0-46.0) Mean Corpuscular Volume 91.4 fL (80.0-100.0) Mean Corpuscular Hemoglobin 30.2 pg (28.0-32.0) Mean Corpuscular Hemoglobin Concent 33.0 g/dL (32.0-36.0) Red Cell Distribution Width 13.3 % (11.8-14.3) Platelet Count 230 10^3/uL (140-450) Mean Platelet Volume 9.2 fL (6.9-10.8) Neutrophils (%) (Auto) 61.6 % (37.0-80.0) Lymphocytes (%) (Auto) 28.7 % (10.0-50.0) Monocytes (%) (Auto) 8.1 % (0.0-12.0) Eosinophils (%) (Auto) 1.0 % (0.0-7.0) Basophils (%) (Auto) 0.6 % (0.0-2.0) Neutrophils # (Auto) 5.9 10 ^3/uL (1.6-8.6) Lymphocytes # (Auto) 2.7 10 ^3/uL (0.4-5.4) Monocytes # (Auto) 0.8 10 ^3/uL (0-1.3) Eosinophils # (Auto) 0.1 10 ^3/uL (0-0.8) Basophils # (Auto) 0.1 10 ^3/uL (0-0.2) Nucleated Red Blood Cells 0.0 % Blood Gas Specimen Type Arterial Blood Gas Sample Site Right radial Blood Gas Patient Temperature 37.0 Arterial Blood Date Drawn [id number] Arterial Blood pH 7.432 (7.350-7.450) Arterial Blood Partial Pressure CO2 37.7 mmHg (32.0-45.0) Arterial Blood Partial Pressure O2 63.7 mmHg (83.0-108.0) Arterial Blood HCO3 24.6 mmol/L (21.0-28.0) Arterial Blood Oxygen Saturation 92.1 % (94.0-98.0) Arterial Blood Base Excess 0.5 mmol/L (-2.0-3.0) Arterial Blood Oxyhemoglobin 91.5 % (94.0-98.0) Arterial Blood Carboxyhemoglobin 0.3 % (0.5-1.5) Arterial Blood Methemoglobin 0.3 % (0.0-1.5) Sushil Test Yes Blood Gas Total Hemoglobin 13.30 g/dL (12.0-16.0) Blood Gas Modality Room air FiO2 % 21.0 Urine Color Light-yellow (Yellow) Urine Clarity Clear (Clear) Urine pH 6.5 (5.0-9.0) Urine Specific [place] 1.017 (1.001-1.035) Urine Protein Negative (Negative) Urine Ketones Negative (Negative) Urine Blood Negative /uL (Negative) Urine Nitrite Negative (Negative) Urine Bilirubin Negative (Negative) Urine Urobilinogen Normal mg/dL (Negative) Urine Leukocyte Esterase 3+ /uL (Negative) Urine RBC 2 /hpf (0 - 4) Urine Microscopic WBC 14 /HPF (0-5) Urine Squamous Epithelial Cells Few /hpf (<5) Urine Bacteria None seen /hpf (None Seen) Urine Glucose Normal mg/dL (Normal) Venous Blood pH 7.313 (7.320-7.430) Venous Blood pCO2 at Patient Temp 60.4 mmHg (38.0-54.0) Venous Blood pO2 at Patient Temp < 36.5 mmHg (23.0-48.0) Venous Blood HCO3 29.9 mmol/L (22.0-29.0) Venous Blood Base Excess 2.1 mmol/L (-2.0-3.0) Blood Gas Critical Value Read Back Yes Blood Gas Notified Whom tamiko Palacio md Blood Gas Notified Time [id number] Blood Gas Notified By daniel Leger rrt Test 11/20/24 18:26 11/20/24 17:27 11/20/24 17:15 Troponin I High Sensitivity < 3 ng/L (</=34) Lactic Acid Level 1.8 mmol/L (0.4-2.0) Lactate Dehydrogenase 276 U/L (120-246) C-Reactive Protein High Sensitivity 0.32 mg/dL (<1.0) B-Type Natriuretic Peptide 12.88 pg/mL (0-100) Influenza Type A Antigen Negative (Negative) Influenza Type B Antigen Negative (Negative) SARS-CoV-2 Antigen (Rapid) Negative (NEGATIVE) Group A Streptococcus Rapid Negative Other Laboratory Tests 11/25/24 06:00 Brief Hx & Hospital Course: 64-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 Treated with albuterol Atrovent Solu-Medrol possible community-acquired pneumonia treated with Rocephin and azithromycin. Flu test negative COVID test negative ABG on room air at the time of discharge indicates patient does not qualify for home oxygen. Seen by pulmonology Dr. Brice. Patient on room air afebrile time of discharge and willing to home. Discharged home on azithromycin Medrol Dosepak and advair. Consults/Reason for consult Pulmonology Dr. 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 History of COVID pneumonia History of RSV Flu test negative COVID test negative ABG on room air shows patient does not qualify for home oxygen Discharge Disposition: Home Discharge Instruct/Medications Diet: Regular Activity: Light activity Follow Up/Referral: Use medications as prescribed Follow up with your primary DrTammy Medications: Prednisone Azithromycin Advair Transmitted to pharmacy 35 (Time taken for discharge summary 35 minutes) Discharge Statement: "Patient was advised to return to the ER or call 911 if any headaches, dizziness, shortness of breath, chest pain, abdominal pain, bleeding, fevers, or worsening of medical condition. Patient was counseled about treatment plan, medications, possible side effects, patientverbalized understanding. All questions were answered to the best of my ability. 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
[2024-11-25 08:44] LABS: Alanine Aminotransferase 24 U/L (7-40); Alkaline Phosphatase 70 U/L (46-116); Anion Gap 7 (5-15); Aspartate Aminotransferase 16 U/L (13-40); BUN/Creatinine Ratio 27.9 (10.0-20.0); Blood Urea Nitrogen 17 mg/dL (9-23); Calcium 9.8 mg/dL (8.7-10.4); Chloride 102 mmol/L (98-107); Glucose 82 mg/dL (74-106); Potassium 4.1 mmol/L (3.5-5.1); Sodium 140 mmol/L (136-145); Total Protein 6.2 g/dL (5.7-8.2)
[2024-11-25 08:45] LABS: Bilirubin, Total 0.6 mg/dL (0.2-1.0)
[2024-11-25 08:46] LABS: Carbon Dioxide 31 mmol/L (20-31)
== END 2024-11-25 13:32 | disposition home or self-care (01) | DRG 133 ==
LOC: ER 14:02 → OVERFLOW 20:15 → CENTRAL 22:38
PROVIDERS: ADMIT Family Medicine; ATTEND Family Medicine
DX: J96.01 Acute respiratory failure with hypoxia (principal); J15.69 Pneumonia due to other Gram-negative bacteria; J45.901 Unspecified asthma with (acute) exacerbation; J15.9 Unspecified bacterial pneumonia; Z20.822 Contact with and (suspected) exposure to COVID-19; Z59.00 Homelessness unspecified; Z88.2 Allergy status to sulfonamides; Z79.899 Other long term (current) drug therapy; Z59.02 Unsheltered homelessness; Z86.16 Personal history of COVID-19; Z87.01 Personal history of pneumonia (recurrent)
CPT/HCPCS: 36415; 36600; 71045; 71250; 80053; 81001; 82805; 83605; 83615; 83880; 84484; 85025; 86141; 87040; 87070; 87426; 87804; 87880; 93005; 94640; 96365; 96375; G0378

== ENCOUNTER 2025-01-16 09:44 | Inpatient (IN) | payer OTHER ==
[~2025-01-16] VITALS: Ht 162.6 cm; Wt 99.4 kg
[~2025-01-16 09:44] MED LIST: AZIT500T66 PO; FLUT250M2 INH; METH4PAK PO
--- NOTE | 2025-01-16 10:55 | DVH ---
CHEST RADIOGRAPH Indication: shortness of breath Technique: Single frontal view of the chest was obtained COMPARISON: XY CHEST PORTABLE on DOS: 11/20/24 FINDINGS: Lines and Tubes: None Lungs: Clear Pleura: No effusion. No pneumothorax. Cardiomediastinal contours: Elevation of the right hemidiaphragm. Bones: Unremarkable IMPRESSION: No acute disease.
[2025-01-16] MEDS ORDERED: DexAMETHasone SOD PHOS 10MG/1ML VIAL INJ IV ONE (11:00)
[2025-01-16 11:28] LABS: Basophils # (auto) 0.1 10 ^3/uL (0-0.2); Basophils % (auto) 1.3 % (0.0-2.0); Eosinophils # (auto) 0.6 10 ^3/uL (0-0.8); Eosinophils % (auto) 9.6 % (0.0-7.0); Hematocrit 40.2 % (36.0-46.0); Hemoglobin 13.2 g/dL (12.2-16.2); Lymphocytes # (auto) 1.8 10 ^3/uL (0.4-5.4); Lymphocytes % (auto) 27.4 % (10.0-50.0); Mean Corpuscular Hemoglobin 29.9 pg (28.0-32.0); Mean Corpuscular Hgb Conc. 32.9 g/dL (32.0-36.0); Monocytes # (auto) 0.6 10 ^3/uL (0-1.3); Monocytes % (auto) 9.5 % (0.0-12.0); Neutrophils # (auto) 3.5 10 ^3/uL (1.6-8.6); Neutrophils % (auto) 52.2 % (37.0-80.0); Platelet Count (auto) 212 10^3/uL (140-450); Red Blood Cells 4.42 10^6/uL (4.0-5.20); Red Cell Distribution Width 13.4 % (11.8-14.3); White Blood Cell 6.6 10^3/uL (4.4-10.8)
[2025-01-16 11:36] LABS: Chloride 107 mmol/L (98-107); Potassium 3.7 mmol/L (3.5-5.1); Sodium 145 mmol/L (136-145)
[2025-01-16 11:37] LABS: Anion Gap 8 (5-15); Carbon Dioxide 30 mmol/L (20-31)
[2025-01-16 11:42] LABS: BUN/Creatinine Ratio 16.7 (10.0-20.0); Blood Urea Nitrogen 10 mg/dL (9-23)
[2025-01-16 11:44] LABS: Glucose 74 mg/dL (74-106)
[2025-01-16] MEDS: IPRATROPIUM BROM 0.5 MG/2.5ML INH SOL NEB ONE (12:50)
[2025-01-16] MEDS: ALBUTEROL SULF 2.5 MG/0.5ML(0.5%) NEB SOLN NEB ONE (12:50)
--- NOTE | 2025-01-16 13:11 | ED.PDOC ---
SOB-HPI HPI Comments 65 year old female presents to the ED with a chief complaint of shortness of breath onset 2 weeks. Patient states she has been experiencing shortness of breath with the past 2 weeks as well as dry cough. She has used inhaler with no improvement of symptoms. She is concerned for possible pneumonia. Has no PCP to follow up. PMHx asthma. Denies chest pain, dizziness, fever, chills, sore throat, headache, nausea, vomiting, diarrhea. No other symptoms or modifying factors present at this time. 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 Family History Family History: Reviewed,noncontributory to illness Social History Smoker: Non-Smoker Alcohol: Denies ETOH Use Drugs: Denies Drug Use Lives In: Home Constitutional: denies: chills, diaphoresis, fatigue, fever, malaise, sweats, weakness, others EENTM: denies: blurred vision, double vision, ear bleeding, ear discharge, ear drainage, ear pain, ear ringing, eye pain, eye redness, hearing loss, mouth pain , mouth swelling, nasal discharge, nose bleeding, nose congestion, nose pain, photophobia, tearing, throat pain, throat swelling, voice changes, others Respiratory: reports: cough, shortness of breath; denies: hemoptysis, orthopnea, SOB at rest, SOB with excertion, stridor, wheezing, others Cardiovascular: denies: chest pain, dizzy spells, diaphoresis, Dyspnea on exertion, edema, irregular heart beat, left arm pain, lightheadedness, palpitations, PND, syncope, others Gastrointestinal: denies: abdomen distended, abdominal pain, blood streaked bowels, constipated, diarrhea, dysphagia, difficulty swallowing, hematemesis, melena, nausea, poor appetite, poor fluid intake, rectal bleeding, rectal pain, vomiting, others Genitourinary: denies: abnormal vagina bleeding, burning, dyspareunia, dysuria, flank pain, frequency, hematuria, incontinence, pain, , vagina discharge, urgency, others Neurological: denies: dizziness, fainting, headache, left sided numbness, left sided weakness, numbness, paresthesia, pre-existing deficit, right sided numbness, right sided weakness, seizure, speech problems, tingling, tremors, weakness, others Musculoskeletal: denies: back pain, gout, joint pain, joint swelling, muscle pain, muscle stiffness, neck pain, others Integumetry: denies: bruises, change in color, change in hair/nails, dryness, laceration, lesions, lumps, rash, wounds, others Allergic/Immunocompromised: denies: Difficulty Healing, Frequent Infections, Hives, Itching, others Hematologic/Lymphatic: denies: anemia, blood clots, easy bleeding, easy bruising, swollen glands, others Endocrine: denies: excessive hunger, excessive sweating, excessive thirst, excessive urination, flushing, intolerance to cold, intolerance to heat, unexplained weight gain, unexplained weight loss, others Psychiatric: denies: anxiety, bipolar disorder, depression, hopeless, panic disorder, schizophrenia, sleepless, suicidal, others All Other Systems: Reviewed and Negative Physical Exam General Appearance: No Apparent Distress, Normal HEENT: Normal ENT Inspection, Pharynx Normal, TMs Normal Neck: Full Range of Motion, Non-Tender, Normal, Normal Inspection Respiratory: Chest Non-Tender, Lungs Clear, No Accessory Muscle Use, No Respiratory Distress, Normal Breath Sounds Cardiovascular: No Edema, No JVD, No Murmur, No Gallop, Normal Peripheral Pulses, Regular Rate/Rhythm Breast Exam: Deferred Gastrointestinal: No Organomegaly, Non Tender, No Pulsatile Mass, Normal Bowel Sounds, Soft Genitalia: Deferred Pelvic: Deferred Rectal: Deferred Extremities: No calf tenderness, Normal capillary refill, Normal inspection, Normal range of motion, Non-tender, No pedal edema Musculoskeletal : Apperance: Normal Neurologic: Alert, clinical athletic instructor II-XII nml as Tested, No Motor Deficits, Normal Affect, Normal Mood, No Sensory Deficits Cerebellar Function: Normal Reflexes: Normal Skin: Dry, Normal Color, Warm Lymphatic: No Adenopathy Was a procedure done? Was a procedure done?: No Differential Dx Differential Diagnosis: COPD, Hypertension, Pneumonia, Sinusitis, URI X-Ray, Labs, Meds, VS Vital Signs Date Time Temp Pulse Resp B/P (MAP) Pulse Ox O2 Delivery O2 Flow Rate FiO2 01/16/25 13:35 99.0 73 19 146/96 (113) 95 99.0 01/16/25 12:50 18 94 Room Air* 0 21 01/16/25 09:50 98.1 82 17 150/99 (116) 95 98.1 Lab Test 01/16/25 12:55 01/16/25 11:19 Range/Units Troponin I High Sensitivity < 3 L < 3 L </=34 ng/L White Blood Count 6.6 4.4-10.8 10^3/uL Red Blood Count 4.42 4.0-5.20 10^6/uL Hemoglobin 13.2 12.2-16.2 g/dL Hematocrit 40.2 36.0-46.0 % Mean Corpuscular Volume 91.0 80.0-100.0 fL Mean Corpuscular Hemoglobin 29.9 28.0-32.0 pg Mean Corpuscular Hemoglobin Concent 32.9 32.0-36.0 g/dL Red Cell Distribution Width 13.4 11.8-14.3 % Platelet Count 212 140-450 10^3/uL Mean Platelet Volume 8.5 6.9-10.8 fL Neutrophils (%) (Auto) 52.2 37.0-80.0 % Lymphocytes (%) (Auto) 27.4 10.0-50.0 % Monocytes (%) (Auto) 9.5 0.0-12.0 % Eosinophils (%) (Auto) 9.6 H 0.0-7.0 % Basophils (%) (Auto) 1.3 0.0-2.0 % Neutrophils # (Auto) 3.5 1.6-8.6 10 ^3/uL Lymphocytes # (Auto) 1.8 0.4-5.4 10 ^3/uL Monocytes # (Auto) 0.6 0-1.3 10 ^3/uL Eosinophils # (Auto) 0.6 0-0.8 10 ^3/uL Basophils # (Auto) 0.1 0-0.2 10 ^3/uL Nucleated Red Blood Cells 0.0 % Sodium Level 145 136-145 mmol/L Potassium Level 3.7 3.5-5.1 mmol/L Chloride Level 107 98-107 mmol/L Carbon Dioxide Level 30 20-31 mmol/L Anion Gap 8 5-15 Blood Urea Nitrogen 10 9-23 mg/dL Creatinine 0.60 0.550-1.02 mg/dL Glomerular Filtration Rate Calc 100 >90 mL/min BUN/Creatinine Ratio 16.7 10.0-20.0 Serum Glucose 74 74-106 mg/dL Calcium Level 10.0 8.7-10.4 mg/dL B-Type Natriuretic Peptide 16.40 0-100 pg/mL Current Medications Medications (Trade) Dose Ordered Sig/Fabian Route Start Time Stop Time Status Last Admin Albuterol (Ventolin Medneb) 5 mg ONCE ONCE NEB 01/16/25 10:30 01/16/25 10:31 DC 01/16/25 12:50 Ipratropium [place] (Atrovent Medneb) 0.5 mg ONCE ONCE NEB 01/16/25 10:30 01/16/25 10:31 DC 01/16/25 12:50 [place] [address] Ph: [phone] DIAGNOSTIC IMAGING Diagnostic Imaging Report : [id number] Signed PATIENT: ISRAEL PAGANEACCT: [id number] UNIT: [id number] : 1960 LOC: ER ROOM / BED: / AGE / SEX: 65 / F ADM STATUS: REG ER SERVICE 1027 ORDERING PHYSICIAN: JOSE ALEJANDRO APODACA MD PROCEDURE(s): CXRP - CHEST PORTABLE REASON: shortness of breath ORDER NUMBER(s): [id number], ACCESSION NUMBER(s): [id number] CHEST RADIOGRAPH Indication: shortness of breath Technique: Single frontal view of the chest was obtained COMPARISON: XY CHEST PORTABLE on DOS: 11/20/24 FINDINGS: Lines and Tubes: None Lungs: Clear Pleura: No effusion. No pneumothorax. Cardiomediastinal contours: Elevation of the right hemidiaphragm. Bones: Unremarkable IMPRESSION: No acute disease. ATED BY: AMARI LARSEN MD DICTATED DATE/TIME: 01/16/25 1053 SIGNED BY: AMARI LARSEN MD SIGNED DATE/TIME: 01/16/25 1053 CC: Time of 1ST Reevaluation: 12:45 Reevaluation 1ST: Unchanged Patient Education/Counseling: Diagnosis, Treatment, Prognosis Family Education/Counseling: No Family Present SEPSIS Sepsis Screen Date sepsis recognized/suspect: Jan 16, 2025 Time Sepsis recognized/suspect: 949 Recent Procedure: No On Antibiotic Therapy: No Respiratory Rate >20: No Heart Rate >90: No Temp<36 C (96.8 F) or >38.3 C: No SBP <90 or MAP <65 mmHG: No New Acute Mental Status Change: No Is the patient on CPAP, BIPAP,: No Physician Orders Chest Portable (01/16/25 10:27) Vital Signs Date Time Temp Pulse Resp B/P (MAP) Pulse Ox O2 Delivery O2 Flow Rate FiO2 01/16/25 13:35 99.0 73 19 146/96 (113) 95 99.0 01/16/25 12:50 18 94 Room Air* 0 21 01/16/25 09:50 98.1 82 17 150/99 (116) 95 98.1 Laboratory Tests Test 01/16/25 11:19 White Blood Count 6.6 10^3/uL (4.4-10.8) Medications Medications Dose Ordered Sig/Fabian Route Start Time Stop Time Status Last Admin Dose Admin Albuterol 5 mg ONCE ONCE NEB 01/16/25 10:30 01/16/25 10:31 DC 01/16/25 12:50 Ipratropium [place] 0.5 mg ONCE ONCE NEB 01/16/25 10:30 01/16/25 10:31 DC 01/16/25 12:50 Departure 1 Departure Time of Disposition: 14:24 (Patient's worsening shortness of breath. Patient likely has asthma or COPD exacerbation. We will admit patient for further workup and expert consultation) Impression: Primary Impression: Acute dyspnea Disposition: ADMITTED INPATIENT Admit to: Med Surg Condition: Serious Critical Care Note Critical Care Time?: No Stability Stability form required: No Heart Score Heart Score: Heart Score Response (Comments) Value History Slightly Suspicious 0 EKG Normal 0 Age 45-64 1 Risk Factors 1 or 2 risk factors 1 Troponin Normal limit 0 Total 2 I personally scribed for JOSE ALEJANDRO APODACA MD ([email or web address]) on 01/16/25 at 13:11. Electronically submitted by Jaci Constantino ([email or web address]). JOSE ALEJANDRO APODACA MD Jan 16, 2025 13:11
--- NOTE | 2025-01-16 15:59 | DVH ---
Indication: r/o mass Technique: CT axial images of the chest, abdomen and pelvis are obtained without contrast. Coronal an d sagittal reformats were obtained. Radiation Dose Information: CTDI volume is 18.39 mGy. Dose-length product is 630.18 mGy*cm Comparison: None FINDINGS: There is limited interpretation of the chest, abdomen and pelvis without administration of intravenou s contrast. Trachea patent. No pneumothorax. Right middle/lower lobe consolidation/atelectasis. Elevation right hemidiaphragm, also present on prior. Heart normal in size. No supraclavicular, axillary lymphadenopathy. Adrenal glands, spleen, pancreas unremarkable. Liver unremarkable in shape. No CT evidence for cholelithiasis. The kidneys demonstrate no hydronephrosis. Nonobstructing right renal calculi up to 4 mm. The stomach is partially distended. The small bowel loops are normal in caliber. Colonic diverticular disease. Moderate volume stool in the colon. No secondary signs for appendiciti s. Bladder is relatively nondistended. No free pelvic fluid. No inguinal lymphadenopathy. [id number] bilateral sacroiliac degenerative joint disease. Moderate thoracolumbar degenerative disc disease. IMPRESSION: Limited characterization without contrast. No identifiable mass. Elevation right hemidiaphragm. Right middle / lower lobe airspace consolidation/ atelectasis. Nonobstructing right renal calculi up to 4 mm. Other findings as described
[2025-01-16] MEDS ORDERED: NITROGLYCERIN 0.4 MG SL TAB SL PRN (16:15)
[2025-01-16] MEDS ORDERED: MORPHINE SULFATE INJ 2 MG/ml SYRG IV PRN (16:15)
[2025-01-16] MEDS ORDERED: ONDANSETRON HCL 4 MG/2 ML VIAL IV PRN (16:15)
[2025-01-16] MEDS ORDERED: ACETAMINOPHEN 325 MG TAB PO PRN (16:15)
--- NOTE | 2025-01-16 16:17 | DVHHP2 ---
History of Present Illness Reason for Visit: SOB History of Present Illness Nata Camejo is a 65-year-old female with past medical history of asthma, ovarian cyst removal, premature , right lung hypoplasia who presents to ED with shortness of breath x2 weeks. Patient reports that 6 months ago she was staying in [facility] on travel to [place]. She also reports green productive cough this morning. She denies any chest pain, fever, chills, lightheadedness, dizziness hematuria dizziness, recent trauma or injury, recent sick contacts, recent ingestion of spoiled food, abdominal pain, nausea, vomiting, or diarrhea. Pulmonary: Asthma Past Medical History Premature Right lung hypoplasia Past Surgical History: Other (Ovarian cyst removal) Family History: Other (Dad with heart disease, drinker, and smoker. Mom with Parkinson's.) Smoke: No ALCOHOL: none Drugs: None Lives: Homeless Domestic Violence: Neg Review of Systems Respiratory: Shortness of breath Allergies: Coded Allergies: Sulfa Antibiotics (Verified Allergy, Severe, 11/20/24) Medications Current Medications Medications Dose Ordered Sig/Fabian Route Start Time Stop Time Status Last Admin Dose Admin Ondansetron HCl 4 mg Q4HP PRN IV 01/16/25 16:15 UNV Acetaminophen 650 mg Q6HP PRN PO 01/16/25 16:15 UNV Nitroglycerin 0.4 mg Q5MINP PRN SL 01/16/25 16:15 UNV Morphine Sulfate 2 mg Q30M PRN IV 01/16/25 16:15 UNV Ceftriaxone Sodium 50 ml @ 100 mls/hr DAILY@09 IV 01/16/25 16:15 UNV Exam Vital Signs Vital Signs Date Time Temp Pulse Resp B/P (MAP) Pulse Ox O2 Delivery O2 Flow Rate FiO2 01/16/25 13:35 99.0 73 19 146/96 (113) 95 99.0 01/16/25 12:50 Room Air* 0 21 General Appearance: Alert, Oriented X3, Cooperative, No acute distress HEENT: Atraumatic, PERRLA, EOMI, Mucous membr. moist/pink Respiratory: Normal air movement Cardiovascular: Regular rate, Normal S1, Normal S2, No murmurs Abdominal: Normal bowel sounds, Soft Extremities: No edema, Normal pulses Skin: No significant lesion Neuro: Normal gait, Strength at 5/5 X4 ext, Normal tone, Sensation intact Psych/Mental Status: Mental status NL, Mood NL Labs/Xrays Labs Test 01/16/25 12:55 01/16/25 11:19 Range/Units Troponin I High Sensitivity < 3 L </=34 ng/L White Blood Count 6.6 4.4-10.8 10^3/uL Red Blood Count 4.42 4.0-5.20 10^6/uL Hemoglobin 13.2 12.2-16.2 g/dL Hematocrit 40.2 36.0-46.0 % Mean Corpuscular Volume 91.0 80.0-100.0 fL Mean Corpuscular Hemoglobin 29.9 28.0-32.0 pg Mean Corpuscular Hemoglobin Concent 32.9 32.0-36.0 g/dL Red Cell Distribution Width 13.4 11.8-14.3 % Platelet Count 212 140-450 10^3/uL Mean Platelet Volume 8.5 6.9-10.8 fL Neutrophils (%) (Auto) 52.2 37.0-80.0 % Lymphocytes (%) (Auto) 27.4 10.0-50.0 % Monocytes (%) (Auto) 9.5 0.0-12.0 % Eosinophils (%) (Auto) 9.6 H 0.0-7.0 % Basophils (%) (Auto) 1.3 0.0-2.0 % Neutrophils # (Auto) 3.5 1.6-8.6 10 ^3/uL Lymphocytes # (Auto) 1.8 0.4-5.4 10 ^3/uL Monocytes # (Auto) 0.6 0-1.3 10 ^3/uL Eosinophils # (Auto) 0.6 0-0.8 10 ^3/uL Basophils # (Auto) 0.1 0-0.2 10 ^3/uL Nucleated Red Blood Cells 0.0 % D-Dimer, Quantitative 0.27 0.0-0.49 mg/L FEU Sodium Level 145 136-145 mmol/L Potassium Level 3.7 3.5-5.1 mmol/L Chloride Level 107 98-107 mmol/L Carbon Dioxide Level 30 20-31 mmol/L Anion Gap 8 5-15 Blood Urea Nitrogen 10 9-23 mg/dL Creatinine 0.60 0.550-1.02 mg/dL Glomerular Filtration Rate Calc 100 >90 mL/min BUN/Creatinine Ratio 16.7 10.0-20.0 Serum Glucose 74 74-106 mg/dL Calcium Level 10.0 8.7-10.4 mg/dL B-Type Natriuretic Peptide 16.40 0-100 pg/mL Indication: r/o mass Technique: CT axial images of the chest, abdomen and pelvis are obtained without contrast. Coronal and sagittal reformats were obtained. Radiation Dose Information: CTDI volume is 18.39 mGy. Dose-length product is 630.18 mGy*cm Comparison: None FINDINGS: There is limited interpretation of the chest, abdomen and pelvis without administration of intravenous contrast. Trachea patent. No pneumothorax. Right middle/lower lobe consolidation/atelectasis. Elevation right hemidiaphragm, also present on prior. Heart normal in size. No supraclavicular, axillary lymphadenopathy. Adrenal glands, spleen, pancreas unremarkable. Liver unremarkable in shape. No CT evidence for cholelithiasis. The kidneys demonstrate no hydronephrosis. Nonobstructing right renal calculi up to 4 mm. The stomach is partially distended. The small bowel loops are normal in caliber. Colonic diverticular disease. Moderate volume stool in the colon. No secondary signs for appendicitis. Bladder is relatively nondistended. No free pelvic fluid. No inguinal lymphadenopathy. [id number] bilateral sacroiliac degenerative joint disease. Moderate thoracolumbar degenerative disc disease. IMPRESSION: Limited characterization without contrast. No identifiable mass. Elevation right hemidiaphragm. Right middle / lower lobe airspace consolidation/ atelectasis. Nonobstructing right renal calculi up to 4 mm. Other findings as described CHEST RADIOGRAPH Indication: shortness of breath Technique: Single frontal view of the chest was obtained COMPARISON: XY CHEST PORTABLE on DOS: 11/20/24 FINDINGS: Lines and Tubes: None Lungs: Clear Pleura: No effusion. No pneumothorax. Cardiomediastinal contours: Elevation of the right hemidiaphragm. Bones: Unremarkable IMPRESSION: No acute disease Assessment/Plan Assessment/Plan Assessment Shortness of breath likely due to pneumonia Obesity History of asthma History of ovarian cyst removal History of premature History of right lung hypoplasia Plan Admit to med surge IV antibiotics-ceftriaxone Decadron given in ED Duo nebs Troponin negative x2 BNP UA UDS D-dimer Chest x-ray noted CT chest noted Home medications reconciled Diet DVT prophylaxis-not indicated patient ambulating PUD prophylaxis-not indicated no history of GERD or GI bleed Discussed plan of care with patient and nurse Counseled patient on lifestyle modifications, diet, and exercise 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 Plan discussed with: Patient My Orders Orders - SIENNA MISTYR Procedure Category Date Status Time Urinalysis LAB 01/16/25 Logged 15:06 Drug Screen LAB 01/16/25 Logged 15:06 Chst Ab Pel Wo Con-No CT 01/16/25 Resulted Iv/Oral 15:06 Admit ADMIT 01/16/25 Transmitted 16:01 Allergies DANIEL 01/16/25 Transmitted 16:01 Code Status CODE 01/16/25 Transmitted 16:01 Ondansetron Hcl PHA 01/16/25 Transmitted (Zofran) 16:15 Complete Blood Count LAB 01/17/25 Verified 04:00 Comprehensive LAB 01/17/25 Verified Metabolic Panel 04:00 Cardiac DIET 01/16/25 Transmitted Diet-2gna,Lofat,Lochol Dinner Acetaminophen Tablet [facility] 01/16/25 Transmitted (Tylenol Tablet) 16:15 Sequential DANIEL 01/16/25 Transmitted Compression Device Nitroglycerin [facility] 01/16/25 Transmitted Sublingual (Ntrostat 16:15 Morphine Sulfate PHA 01/16/25 Transmitted Injection 16:15 Stat Ekg For Chest [facility] 01/16/25 Transmitted Pain 16:01 Notify Md Of Changes [facility] 01/16/25 Transmitted From Base 16:01 Triple Valve Tester For [facility] 01/16/25 Transmitted 24 Hours 16:01 Emergency Dysrhythmia [facility] 01/16/25 Transmitted Protocol 16:01 Rhythm Strips Once [facility] 01/16/25 Transmitted Every Shift 16:01 Oxygen By Nasal RT 01/16/25 Transmitted Cannula 16:01 Ceftriaxone Ivpb PHA 01/16/25 Transmitted Rocephin 16:15 Date of Service: Jan 16, 2025 Billing Provider: SIENNA MISTRY Common Visit Codes: [id number] INP/OBS CARE (HIGH) SIENNA MISTRY Jan 16, 2025 16:17
[2025-01-16 18:09] LABS: Urine Bacteria FEW /hpf (None Seen); Urine Blood Negative /uL (Negative); Urine Clarity Turbid (Clear); Urine Color Yellow (Yellow); Urine Mucus FEW (None Seen); Urine Protein, UAD Negative (Negative); Urine Squamous Epithelial Cell FEW /hpf (<5); Urine Urobilinogen Normal (Negative); Urine WBC 94 /HPF (0-5)
[2025-01-16 18:14] LABS: Amphetamine Screen, Urine Neg (NEGATIVE); Barbiturate Scree,Urine Neg (NEGATIVE); Benzodiazephine Screen, Urine Neg (NEGATIVE); Cannabinoid Screen, Urine Neg (NEGATIVE); Cocaine Screen, Urine Neg (NEGATIVE); Opiate Scree,Urine Neg (NEGATIVE); Phencyclidine Screen, Urine Neg (NEGATIVE)
[2025-01-16] MEDS: DexAMETHasone SOD PHOS 10MG/1ML VIAL INJ PO ONE (22:00)
[2025-01-16 22:20] VITALS: BP 146/87; PULSE 78; RESP 19; TEMP 97.6; O2SAT 94
[2025-01-16] MEDS: cefTRIAXone 1GM/50ML D5W 50 ML IV SCH (23:15)
[2025-01-16 23:50] VITALS: PULSE 78; PULSE 80; RESP 18; O2SAT 94; O2SAT 95
[2025-01-17] VITALS (18 sets, daily range): BP systolic 105–132; BP diastolic 54–82; PULSE 67–114; RESP 16–20; TEMP 97.7–98.6; O2SAT 92–100
[2025-01-17] MEDS: IPRATROPIUM BROM 0.5 MG/2.5ML INH SOL NEB SCH (00:04)
[2025-01-17] MEDS: ALBUTEROL SULF 2.5 MG/0.5ML(0.5%) NEB SOLN NEB SCH (00:04)
[2025-01-17 07:03] LABS: Basophils # (auto) 0 10 ^3/uL (0-0.2); Basophils % (auto) 0.3 % (0.0-2.0); Eosinophils # (auto) 0 10 ^3/uL (0-0.8); Eosinophils % (auto) 0.2 % (0.0-7.0); Hematocrit 39.3 % (36.0-46.0); Hemoglobin 13.1 g/dL (12.2-16.2); Lymphocytes # (auto) 0.6 10 ^3/uL (0.4-5.4); Lymphocytes % (auto) 10.8 % (10.0-50.0); Mean Corpuscular Hemoglobin 30.3 pg (28.0-32.0); Mean Corpuscular Hgb Conc. 33.2 g/dL (32.0-36.0); Mean Corpuscular Volume 91.2 fL (80.0-100.0); Monocytes # (auto) 0.1 10 ^3/uL (0-1.3); Monocytes % (auto) 1.2 % (0.0-12.0); Neutrophils # (auto) 4.6 10 ^3/uL (1.6-8.6); Neutrophils % (auto) 87.5 % (37.0-80.0); Nucleated Red Blood Cells % 0.1 %; Platelet Count (auto) 193 10^3/uL (140-450); Red Blood Cells 4.31 10^6/uL (4.0-5.20); Red Cell Distribution Width 13.4 % (11.8-14.3); White Blood Cell 5.2 10^3/uL (4.4-10.8)
[2025-01-17 07:20] LABS: Alanine Aminotransferase 19 U/L (7-40); Albumin 4.1 g/dL (3.2-4.8); Alkaline Phosphatase 95 U/L (46-116); Anion Gap 10 (5-15); Aspartate Aminotransferase 24 U/L (<34); BUN/Creatinine Ratio 18.3 (10.0-20.0); Bilirubin, Total 0.4 mg/dL (0.2-1.0); Blood Urea Nitrogen 11 mg/dL (9-23); Calcium 9.9 mg/dL (8.7-10.4); Carbon Dioxide 26 mmol/L (20-31); Sodium 145 mmol/L (136-145); Total Protein 6.3 g/dL (5.7-8.2)
[2025-01-17 07:26] LABS: Chloride 109 mmol/L (98-107); Glucose 143 mg/dL (74-106)
[2025-01-17] MEDS ORDERED: AZITHROMYCIN 500MG/ 250ML 250 ML IV ONE (12:30)
--- NOTE | 2025-01-17 12:33 | DVHPN2 ---
Reviewed: Care Plan, H&P, Labs, Medications, Previous Orders, Radiology Changes from previous H/P or p: No Changes Respiratory: Shortness of breath Objective Vitals Vital Signs Date Time Temp Pulse Resp B/P (MAP) Pulse Ox O2 Delivery O2 Flow Rate FiO2 01/17/25 09:43 102 18 100 01/17/25 09:32 Nasal Cannula 2.0 01/17/25 09:32 28 01/17/25 09:14 98.0 129/77 98.0 Intake/Output Intake and Output 01/17/25 07:00 Intake Total 450 ml Balance 450 ml Intake Oral 400 ml IV Total 50 ml # Voids 2 Medications Current Medications Medications Dose Ordered Sig/Fabian Route Start Time Stop Time Status Last Admin Dose Admin Ondansetron HCl 4 mg Q4HP PRN IV 01/16/25 16:15 Acetaminophen 650 mg Q6HP PRN PO 01/16/25 16:15 Nitroglycerin 0.4 mg Q5MINP PRN SL 01/16/25 16:15 Morphine Sulfate 2 mg Q30M PRN IV 01/16/25 16:15 Ceftriaxone Sodium 50 ml @ 100 mls/hr DAILY@09 IV 01/16/25 16:15 01/17/25 09:34 100 MLS/HR Albuterol 2.5 mg Q4HWA NEB 01/16/25 18:00 01/17/25 09:32 2.5 MG Ipratropium [place] 0.5 mg Q4HWA NEB 01/16/25 18:00 01/17/25 09:32 0.5 MG Laboratory Results Laboratory Tests 01/17/25 05:59 Chemistry Test 01/17/25 05:59 Albumin 4.1 g/dL (3.2-4.8) Calcium Level 9.9 mg/dL (8.7-10.4) Total Protein 6.3 g/dL (5.7-8.2) LFT Test 01/17/25 05:59 Alanine Aminotransferase (ALT) 19 U/L (7-40) Alkaline Phosphatase 95 U/L (46-116) Aspartate Amino Transferase (AST) 24 U/L (<34) Total Bilirubin 0.4 mg/dL (0.2-1.0) Urinalysis Test 01/16/25 17:20 Urine Color Yellow (Yellow) Urine Clarity Turbid (Clear) H Urine pH 6.0 (5.0-9.0) Urine Specific [place] 1.020 (1.001-1.035) Urine Protein Negative (Negative) Urine Ketones Negative (Negative) Urine Blood Negative /uL (Negative) Urine Nitrite Negative (Negative) Urine Bilirubin Negative (Negative) Urine Urobilinogen Normal mg/dL (Negative) Urine Leukocyte Esterase 3+ /uL (Negative) Urine RBC 4 /hpf (0 - 4) Urine Microscopic WBC 94 /HPF (0-5) H Urine Squamous Epithelial Cells Few /hpf (<5) Urine Bacteria Few /hpf (None Seen) H Urine Mucus Few (None Seen) Urine Glucose Normal mg/dL (Normal) Labs and/or images reviewed: Labs reviewed by me, Image(s) reviewed by me Assessment/Plan Assessment/Plan Acute Hypoxic respiratory failure: Oxygen by nasal cannula Right middle lobe community-acquired pneumonia: Rocephin azithromycinpo, albuterol Atrovent History of asthma History of right lung hypoplasia UTI: Urine cultures Rocephin Severe cellulitis bilateral lower extremities: Clindamycin IV Patient moved from [place] and Lives in a car: Social service consult ROHINI Velasco at bedside Plan discussed with: Patient My Orders Orders - ESAU WYATT MD Procedure Category Date Status Time Urine Bacterial YENY 01/17/25 Logged Culture 12:23 Covid19 Antigen Yesenia LAB 01/17/25 Transmitted Rapid Influenza A&B LAB 01/17/25 Transmitted 12:23 Azithromycin 500mg/ PHA 01/18/25 Verified 250ml (Zithromax 50 10:00 Azithromycin 500mg/ PHA 01/17/25 Verified 250ml (Zithromax 50 12:30 Date of Service: Jan 17, 2025 Billing Provider: ESAU WYATT MD Common Visit Codes: [id number] INP/OBS CARE(HIGH) ESAU WYATT MD Jan 17, 2025 12:33
[2025-01-17] MEDS: CLINDAMYCIN 600MG IV 50 ML IV SCH (14:02)
[2025-01-17] MEDS: AZITHROMYCIN 250 MG TAB PO ONE (14:06)
[2025-01-17 15:06] LABS: Rapid Influenza A Negative (Negative); Rapid Influenza B Negative (Negative)
[2025-01-17 15:07] LABS: COVID19 ANTIGEN SOFIA FIA NEGATIVE (NEGATIVE)
[2025-01-18] VITALS (16 sets, daily range): BP systolic 114–157; BP diastolic 51–87; PULSE 61–99; RESP 16–20; TEMP 96.5–97.9; O2SAT 90–100
[2025-01-18] MEDS ORDERED: AZITHROMYCIN 500MG/ 250ML 250 ML IV SCH (10:00)
[2025-01-18] MEDS: AZITHROMYCIN 250 MG TAB PO SCH (10:03)
--- NOTE | 2025-01-18 10:10 | DVHPN2 ---
Reviewed: Care Plan, H&P, Labs, Medications, Previous Orders, Radiology Changes from previous H/P or p: No Changes Respiratory: Shortness of breath Objective Vitals Vital Signs Date Time Temp Pulse Resp B/P (MAP) Pulse Ox O2 Delivery O2 Flow Rate FiO2 01/18/25 06:44 65 16 100 01/18/25 06:38 Nasal Cannula* 3 32 01/18/25 05:00 97.3 148/68 (94) 97.3 Intake/Output Intake and Output 01/18/25 07:00 Intake Total 925 ml Balance 925 ml Intake Oral 775 ml IV Total 150 ml # Voids 8 Medications Current Medications Medications Dose Ordered Sig/Fabian Route Start Time Stop Time Status Last Admin Dose Admin Ondansetron HCl 4 mg Q4HP PRN IV 01/16/25 16:15 Acetaminophen 650 mg Q6HP PRN PO 01/16/25 16:15 Nitroglycerin 0.4 mg Q5MINP PRN SL 01/16/25 16:15 Morphine Sulfate 2 mg Q30M PRN IV 01/16/25 16:15 Ceftriaxone Sodium 50 ml @ 100 mls/hr DAILY@09 IV 01/16/25 16:15 01/17/25 09:34 100 MLS/HR Albuterol 2.5 mg Q4HWA NEB 01/16/25 18:00 01/18/25 06:38 2.5 MG Ipratropium [place] 0.5 mg Q4HWA NEB 01/16/25 18:00 01/18/25 06:38 0.5 MG Azithromycin 500 mg DAILY PO 01/18/25 10:00 Clindamycin Phosphate 50 ml @ 50 mls/hr Q8HR IV 01/17/25 14:00 01/18/25 05:43 50 MLS/HR Laboratory Results Laboratory Tests 01/17/25 05:59 Urinalysis Test 01/16/25 17:20 Urine Color Yellow (Yellow) Urine Clarity Turbid (Clear) H Urine pH 6.0 (5.0-9.0) Urine Specific [place] 1.020 (1.001-1.035) Urine Protein Negative (Negative) Urine Ketones Negative (Negative) Urine Blood Negative /uL (Negative) Urine Nitrite Negative (Negative) Urine Bilirubin Negative (Negative) Urine Urobilinogen Normal mg/dL (Negative) Urine Leukocyte Esterase 3+ /uL (Negative) Urine RBC 4 /hpf (0 - 4) Urine Microscopic WBC 94 /HPF (0-5) H Urine Squamous Epithelial Cells Few /hpf (<5) Urine Bacteria Few /hpf (None Seen) H Urine Mucus Few (None Seen) Urine Glucose Normal mg/dL (Normal) Microbiology Microbiology Date/Time Source Procedure Growth Status 01/17/25 01:35 Nose MRSA Screen - Final Complete Labs and/or images reviewed: Labs reviewed by me, Image(s) reviewed by me Assessment/Plan Assessment/Plan Acute Hypoxic respiratory failure: Oxygen by nasal cannula Right middle lobe community-acquired pneumonia: Rocephin azithromycinpo, albuterol Atrovent History of asthma History of right lung hypoplasia UTI: Urine cultures Rocephin Severe cellulitis bilateral lower extremities: Clindamycin IV Patient moved from [place] and Lives in a car: Social service consult ROHINI Ballard at bedside Add Solu-Medrol Plan discussed with: Patient My Orders Orders - ESAU WYATT MD Procedure Category Date Status Time Urine Bacterial YENY 01/17/25 Logged Culture 12:23 Azithromycin Tablet PHA 01/18/25 In Process (Zithromax Tablet) 10:00 Clindamycin 600mg Iv PHA 01/17/25 In Process (Cleocin Iv) 14:00 Date of Service: Jan 18, 2025 Billing Provider: ESAU WYATT MD Common Visit Codes: [id number] INP/OBS CARE(HIGH) ESAU WYATT MD Jan 18, 2025 10:09
[2025-01-18] MEDS: methylPREDNISolone SOD SUCC 125 MG/2 ML VL IV SCH (14:01)
[2025-01-19] VITALS (12 sets, daily range): BP systolic 122–144; BP diastolic 72–89; PULSE 59–105; RESP 18–21; TEMP 96.8–97.7; O2SAT 90–99
[2025-01-19] MEDS: ALBUTEROL SULF 2.5 MG/0.5ML(0.5%) NEB SOLN NEB SCH (06:22)
[2025-01-19] MEDS: IPRATROPIUM BROM 0.5 MG/2.5ML INH SOL NEB SCH (06:22)
--- NOTE | 2025-01-19 10:52 | DVHPN2 ---
Reviewed: Care Plan, H&P, Labs, Medications, Previous Orders, Radiology Changes from previous H/P or p: No Changes Respiratory: Shortness of breath Objective Vitals Vital Signs Date Time Temp Pulse Resp B/P (MAP) Pulse Ox O2 Delivery O2 Flow Rate FiO2 01/19/25 08:39 97.5 68 21 138/89 (105) 96 97.5 01/19/25 07:30 Nasal Cannula* 2 28 Intake/Output Intake and Output 01/19/25 07:00 Intake Total 2800 ml Balance 2800 ml Intake Oral 2600 ml IV Total 200 ml # Voids 14 # Bowel Movements 1 Medications Current Medications Medications Dose Ordered Sig/Fabian Route Start Time Stop Time Status Last Admin Dose Admin Ondansetron HCl 4 mg Q4HP PRN IV 01/16/25 16:15 Acetaminophen 650 mg Q6HP PRN PO 01/16/25 16:15 Nitroglycerin 0.4 mg Q5MINP PRN SL 01/16/25 16:15 Morphine Sulfate 2 mg Q30M PRN IV 01/16/25 16:15 Ceftriaxone Sodium 50 ml @ 100 mls/hr DAILY@09 IV 01/16/25 16:15 01/19/25 09:25 100 MLS/HR Azithromycin 500 mg DAILY PO 01/18/25 10:00 01/18/25 10:03 500 MG Clindamycin Phosphate 50 ml @ 50 mls/hr Q8HR IV 01/17/25 14:00 01/19/25 05:26 50 MLS/HR Methylprednisolone Sodium Succinate 60 mg Q8HR IV 01/18/25 14:00 01/19/25 05:26 60 MG Albuterol 2.5 mg Q6HR NEB 01/19/25 06:00 01/19/25 06:22 2.5 MG Ipratropium [place] 0.5 mg Q6HR NEB 01/19/25 06:00 01/19/25 06:22 0.5 MG Laboratory Results Laboratory Tests 01/17/25 05:59 Urinalysis Test 01/16/25 17:20 Urine Color Yellow (Yellow) Urine Clarity Turbid (Clear) H Urine pH 6.0 (5.0-9.0) Urine Specific [place] 1.020 (1.001-1.035) Urine Protein Negative (Negative) Urine Ketones Negative (Negative) Urine Blood Negative /uL (Negative) Urine Nitrite Negative (Negative) Urine Bilirubin Negative (Negative) Urine Urobilinogen Normal mg/dL (Negative) Urine Leukocyte Esterase 3+ /uL (Negative) Urine RBC 4 /hpf (0 - 4) Urine Microscopic WBC 94 /HPF (0-5) H Urine Squamous Epithelial Cells Few /hpf (<5) Urine Bacteria Few /hpf (None Seen) H Urine Mucus Few (None Seen) Urine Glucose Normal mg/dL (Normal) Microbiology Microbiology Date/Time Source Procedure Growth Status 01/17/25 01:35 Nose MRSA Screen - Final Complete Labs and/or images reviewed: Labs reviewed by me, Image(s) reviewed by me Assessment/Plan Assessment/Plan Acute Hypoxic respiratory failure: Oxygen by nasal cannula Right middle lobe community-acquired pneumonia: Rocephin azithromycinpo, albuterol Atrovent History of asthma History of right lung hypoplasia UTI: Urine cultures Rocephin Severe cellulitis bilateral lower extremities: Clindamycin IV Patient moved from [place] and Lives in a car: Social service consult RN Summer at bedside Add Solu-Medrol Feels better today Possible DC Monday Plan discussed with: Patient My Orders Orders - ESAU WYATT MD Procedure Category Date Status Time Cleanse Wound With DANIEL 01/18/25 In Process Mild Soap A 10:10 Date of Service: Jan 19, 2025 Billing Provider: ESAU WYATT MD Common Visit Codes: [id number] INP/OBS CARE(HIGH) ESAU WYATT MD Jan 19, 2025 10:52
[2025-01-20] VITALS (13 sets, daily range): BP systolic 114–144; BP diastolic 78–82; PULSE 70–101; RESP 14–22; TEMP 97.3–99.2; O2SAT 90–100
[2025-01-20] MEDS ORDERED: AZIT500T66 PO (14:48)
[2025-01-20] MEDS ORDERED: CLIN1CAP70 PO (14:48)
[2025-01-20] MEDS ORDERED: METH4PAK PO (14:48)
--- NOTE | 2025-01-20 14:58 | DVHDS2 ---
Discharge Summary Date of Admission Jan 16, 2025 at 16:01 Date of Discharge: Jan 20, 2025 Admitting Diagnosis Shortness of breath Wounds: None Labs/Diagnostic Data: Laboratory Results Test 01/17/25 14:05 01/17/25 05:59 01/16/25 17:20 01/16/25 12:55 Influenza Type A Antigen Negative (Negative) Influenza Type B Antigen Negative (Negative) SARS-CoV-2 Antigen (Rapid) Negative (NEGATIVE) White Blood Count 5.2 10^3/uL (4.4-10.8) Red Blood Count 4.31 10^6/uL (4.0-5.20) Hemoglobin 13.1 g/dL (12.2-16.2) Hematocrit 39.3 % (36.0-46.0) Mean Corpuscular Volume 91.2 fL (80.0-100.0) Mean Corpuscular Hemoglobin 30.3 pg (28.0-32.0) Mean Corpuscular Hemoglobin Concent 33.2 g/dL (32.0-36.0) Red Cell Distribution Width 13.4 % (11.8-14.3) Platelet Count 193 10^3/uL (140-450) Mean Platelet Volume 8.6 fL (6.9-10.8) Neutrophils (%) (Auto) 87.5 % (37.0-80.0) Lymphocytes (%) (Auto) 10.8 % (10.0-50.0) Monocytes (%) (Auto) 1.2 % (0.0-12.0) Eosinophils (%) (Auto) 0.2 % (0.0-7.0) Basophils (%) (Auto) 0.3 % (0.0-2.0) Neutrophils # (Auto) 4.6 10 ^3/uL (1.6-8.6) Lymphocytes # (Auto) 0.6 10 ^3/uL (0.4-5.4) Monocytes # (Auto) 0.1 10 ^3/uL (0-1.3) Eosinophils # (Auto) 0 10 ^3/uL (0-0.8) Basophils # (Auto) 0 10 ^3/uL (0-0.2) Nucleated Red Blood Cells 0.1 % Sodium Level 145 mmol/L (136-145) Potassium Level 4.0 mmol/L (3.5-5.1) Chloride Level 109 mmol/L (98-107) Carbon Dioxide Level 26 mmol/L (20-31) Anion Gap 10 (5-15) Blood Urea Nitrogen 11 mg/dL (9-23) Creatinine 0.60 mg/dL (0.550-1.02) Glomerular Filtration Rate Calc 100 mL/min (>90) BUN/Creatinine Ratio 18.3 (10.0-20.0) Serum Glucose 143 mg/dL (74-106) Calcium Level 9.9 mg/dL (8.7-10.4) Total Bilirubin 0.4 mg/dL (0.2-1.0) Aspartate Amino Transferase (AST) 24 U/L (<34) Alanine Aminotransferase (ALT) 19 U/L (7-40) Alkaline Phosphatase 95 U/L (46-116) Total Protein 6.3 g/dL (5.7-8.2) Albumin 4.1 g/dL (3.2-4.8) Urine Color Yellow (Yellow) Urine Clarity Turbid (Clear) Urine pH 6.0 (5.0-9.0) Urine Specific [place] 1.020 (1.001-1.035) Urine Protein Negative (Negative) Urine Ketones Negative (Negative) Urine Blood Negative /uL (Negative) Urine Nitrite Negative (Negative) Urine Bilirubin Negative (Negative) Urine Urobilinogen Normal mg/dL (Negative) Urine Leukocyte Esterase 3+ /uL (Negative) Urine RBC 4 /hpf (0 - 4) Urine Microscopic WBC 94 /HPF (0-5) Urine Squamous Epithelial Cells Few /hpf (<5) Urine Bacteria Few /hpf (None Seen) Urine Mucus Few (None Seen) Urine Glucose Normal mg/dL (Normal) Urine Opiates Screen Neg (NEGATIVE) Urine Fentanyl Screen Neg (NEGATIVE) Urine Barbiturates Screen Neg (NEGATIVE) Urine Phencyclidine Screen Neg (NEGATIVE) Urine Amphetamines Screen Neg (NEGATIVE) Urine Benzodiazepines Screen Neg (NEGATIVE) Urine Cocaine Screen Neg (NEGATIVE) Urine Cannabinoids Screen Neg (NEGATIVE) Troponin I High Sensitivity < 3 ng/L (</=34) Test 01/16/25 11:19 D-Dimer, Quantitative 0.27 mg/L FEU (0.0-0.49) B-Type Natriuretic Peptide 16.40 pg/mL (0-100) Other Laboratory Tests 01/17/25 05:59 Brief Hx & Hospital Course: With a history of asthma came in for shortness of breaths found to have community-acquired right middle lobe pneumonia treated with Rocephin azithromycin albuterol Atrovent history of right lung hypoplasia mild UTI treated with Rocephin patient also had severe cellulitis bilateral lower extremity treated with a clindamycin IV. The patient feels better on room air and wants to go home. Discharged home on azithromycin for pneumonia clindamycin for cellulitis and Medrol Dosepak. She will follow up with discharge clinic in one Consults/Reason for consult None Operations or Procedures None Condition at Discharge: Fair Final Diagnosis/Problems List Acute Hypoxic respiratory failure: Oxygen by nasal cannula Right middle lobe community-acquired pneumonia: Rocephin azithromycinpo, albuterol Atrovent History of asthma History of right lung hypoplasia UTI: Urine cultures Rocephin Severe cellulitis bilateral lower extremities: Clindamycin IV Discharge Disposition: Home Discharge Instruct/Medications Diet: Regular Activity: Light activity Follow Up/Referral: Follow up with the Discharge clinic in one week Medications: Azithromycin Clindamycin Medrol Dosepak Transmitted to pharmacy 35 (Time taken for discharge summary 35 minutes) Discharge Statement: "Patient was advised to return to the ER or call 911 if any headaches, dizziness, shortness of breath, chest pain, abdominal pain, bleeding, fevers, or worsening of medical condition. Patient was counseled about treatment plan, medications, possible side effects, patientverbalized understanding. All questions were answered to the best of my ability. This discharge took greater then 30 minutes in planning, reviewing documentation, counseling the patient, and discussing with other team members." ASSESSMENT ASSESSMENT Hospital Course Improved Assessment Acute Hypoxic respiratory failure: Oxygen by nasal cannula Right middle lobe community-acquired pneumonia: Rocephin azithromycinpo, albuterol Atrovent History of asthma History of right lung hypoplasia UTI: Urine cultures Rocephin Severe cellulitis bilateral lower extremities: Clindamycin IV Date of Service: Jan 20, 2025 Billing Provider: ESAU WYATT MD Common Visit Codes: [id number] DISCH DAY >30min ESAU WYATT MD Jan 20, 2025 14:58
== END 2025-01-20 18:33 | disposition home or self-care (01) | DRG 137 ==
LOC: ER 09:44 → OVERFLOW 16:01 → WEST WING 22:20
PROVIDERS: ADMIT Family Medicine; ATTEND Family Medicine
DX: J15.69 Pneumonia due to other Gram-negative bacteria (principal); J96.01 Acute respiratory failure with hypoxia; Z20.822 Contact with and (suspected) exposure to COVID-19; E66.9 Obesity, unspecified; Z68.36 Body mass index [BMI] 36.0-36.9, adult; J45.909 Unspecified asthma, uncomplicated; Z59.02 Unsheltered homelessness; N39.0 Urinary tract infection, site not specified; L03.116 Cellulitis of left lower limb; L03.115 Cellulitis of right lower limb; Z82.0 Family history of epilepsy and other diseases of the nervous system; Z82.49 Family history of ischemic heart disease and other diseases of the circulatory system; Z87.09 Personal history of other diseases of the respiratory system; J15.9 Unspecified bacterial pneumonia
CPT/HCPCS: 36415; 71045; 71250; 74176; 80048; 80053; 80307; 81001; 83880; 84484; 85025; 85379; 87081; 87426; 87804; 94640; G0378; J1100; J3490

== ENCOUNTER 2025-02-07 06:28 | Emergency (ER) | payer OTHER ==
[~2025-02-07] VITALS: Ht 154.9 cm; Wt 85.5 kg
[~2025-02-07 06:28] MED LIST changes: +CLIN1CAP70 PO
[2025-02-07 06:42] VITALS: TEMP 98.6
--- NOTE | 2025-02-07 06:46 | ED.PDOC ---
SOB-HPI HPI Comments A 65 YEAR OLD FEMALE PRESENTS TO THE ED WITH COMPLAINT OF ASTHMA EXACERBATION. PATIENT STATES SHE HAS A HISTORY OF ASTHMA AND HAS BEEN EXPERIENCING WHEEZING AND MILD DIFFICULTY BREATHING FOR THE PAST 2 WEEKS. PATIENT NOTES SHE HAS BEEN USING HER INHALER WITH ONLY MINIMAL IMPROVEMENT. PATIENT WAS HERE IN THE ED FOR THE SAME COMPLAINT 3 WEEKS AGO WHERE SHE WAS ADMITTED TO RULE OUT A PE AND HAD LABS AND A CT CHEST/ABDOMEN/PELVIS AND X RAY OF HER CHEST DONE ALL OF WHICH WAS NORMAL. PATIENT DENIES FEVER, CHILLS, CHEST PAIN, ABDOMINAL PAIN, NAUSEA, VOMITING, HEADACHE, OR OTHER COMPLAINTS. NO OTHER SYMPTOMS OR MODIFYING FACTORS AT THIS TIME. PATIENT IS ALERT, ORIENTED X 4, AND HAS STEADY GAIT. Chief Complaint: Asthma Time Seen by MD: 06:31 Primary Care Provider: NONE Reviewed notes: Nurses Notes, Medications, Allergies Information Source: Patient Mode of Arrival: Ambulatory Severity: Moderate Timing: Weeks Duration: Since onset, Intermittent, Days Context: Spontaneous Onset PE Risk Factors: None History of: Asthma Prehospital treatment: None Modifying Factors: Nothing Associated Signs and Symptoms: Wheeze, Cough If cough with SOB: Non-Productive Past Medical History PAST MEDICAL HISTORY: Asthma Surgical History: Denies all surgeries [employer] History: Denies all [employer] Hx Family History Family History: Reviewed,noncontributory to illness Social History Smoker: Non-Smoker Alcohol: Denies ETOH Use Drugs: Denies Drug Use Lives In: Homeless Constitutional: denies: chills, diaphoresis, fatigue, fever, malaise, sweats, weakness, others EENTM: denies: blurred vision, double vision, ear bleeding, ear discharge, ear drainage, ear pain, ear ringing, eye pain, eye redness, hearing loss, mouth pain, mouth swelling, nasal discharge, nose bleeding, nose congestion, nose pain, photophobia, tearing, throat pain, throat swelling, voice changes, others Respiratory: reports: shortness of breath, wheezing; denies: cough, hemoptysis, orthopnea, SOB at rest, SOB with excertion, stridor, others Cardiovascular: denies: chest pain, dizzy spells, diaphoresis, Dyspnea on exertion, edema, irregular heart beat, left arm pain, lightheadedness, palpitations, PND, syncope, others Gastrointestinal: denies: abdomen distended, abdominal pain, blood streaked bowels, constipated, diarrhea, dysphagia, difficulty swallowing, hematemesis, melena, nausea, poor appetite, poor fluid intake, rectal bleeding, rectal pain, vomiting, others Genitourinary: denies: abnormal vagina bleeding, burning, dyspareunia, dysuria, flank pain, frequency, hematuria, incontinence, pain, , vagina discharge, urgency, others Neurological: denies: dizziness, fainting, headache, left sided numbness, left sided weakness, numbness, paresthesia, pre-existing deficit, right sided numbness, right sided weakness, seizure, speech problems, tingling, tremors, weakness, others Musculoskeletal: denies: back pain, gout, joint pain, joint swelling, muscle pain, muscle stiffness, neck pain, others Integumetry: denies: bruises, change in color, change in hair/nails, dryness, laceration, lesions, lumps, rash, wounds, others Allergic/Immunocompromised: denies: Difficulty Healing, Frequent Infections, Hives, Itching, others Hematologic/Lymphatic: denies: anemia, blood clots, easy bleeding, easy bruising, swollen glands, others Endocrine: denies: excessive hunger, excessive sweating, excessive thirst, excessive urination, flushing, intolerance to cold, intolerance to heat, une xplained weight gain, unexplained weight loss, others Psychiatric: denies: anxiety, bipolar disorder, depression, hopeless, panic disorder, schizophrenia, sleepless, suicidal, others All Other Systems: Reviewed and Negative Physical Exam General Appearance: No Apparent Distress, Normal HEENT: Normal ENT Inspection, PERRL/EOMI, Pharynx Normal, TMs Normal Neck: Full Range of Motion, Non-Tender, Normal, Normal Inspection Respiratory: Chest Non-Tender, Expiration, No Accessory Muscle Use, No Res piratory Distress, Rhonchi, Wheezing Cardiovascular: No Edema, No JVD, No Murmur, No Gallop, Normal Peripheral Pulses, Regular Rate/Rhythm Breast Exam: Deferred Gastrointestinal: No Organomegaly, Non Tender, No Pulsatile Mass, Normal Bowel Sounds, Soft Genitalia: Deferred Pelvic: Deferred Rectal: Deferred Extremities: No calf tenderness, Normal capillary refill, Normal inspection, Normal range of motion, Non-tender, No pedal edema Musculoskeletal : Apperance: Normal Neurologic: Alert, flight agent II-XII nml as Tested, No Motor Deficits, Normal Affect, Normal Mood, No Sensory Deficits Cerebellar Function: Normal Reflexes: Normal Skin: Dry, Normal Color, Warm Peripheral Pulses: 2+ carotid (R), 2+ carotid (L) Lymphatic: No Adenopathy Was a procedure done? Was a procedure done?: No Differential Dx Differential Diagnosis: Bronchitis, Sinusitis, Allergic Rhinitis, Otitis Media, Pharyngitis, URI X-Ray, Labs, Meds, VS Vital Signs Date Time Temp Pulse Resp B/P (MAP) Pulse Ox O2 Delivery O2 Flow Rate FiO2 02/07/25 06:56 20 92 Room Air* 0 21 02/07/25 06:50 16 93 Room Air* 0 02/07/25 06:49 76 16 165/85 (111) 93 02/07/25 06:42 22 96 Room Air* 0 21 02/07/25 06:42 98.6 78 16 147/77 (100) 96 98.6 Current Medications Medications (Trade) Dose Ordered Sig/Fabian Route Start Time Stop Time Status Last Admin Albuterol (Ventolin Medneb) 5 mg ONCE ONCE NEB 02/07/25 06:45 02/07/25 06:46 DC 02/07/25 06:58 Ipratropium [place] (Atrovent Medneb) 1 mg ONCE ONCE NEB 02/07/25 06:45 02/07/25 06:46 DC 02/07/25 06:58 Methylprednisolone Sodium Succinate (Solu Medrol) 125 mg ONCE ONCE IM 02/07/25 06:45 02/07/25 06:46 DC 02/07/25 06:48 X-Ray, Labs, Meds, VS Comment EXTERNAL MEDICAL RECORDS: NONE INDEPENDENT HISTORIANS: NONE SOCIAL DETERMINANTS OF HEALTH: PATIENT IS CURRENTLY HOMELESS. LABS ORDERED: NONE REVIEWED AND INTERPRETED RESULTS: NONE IMAGING ORDERED: NONE TREATMENTS ORDERED: DUONEB 3MG INHL, SOLU-MEDROL 125MG IM PROCEDURES DONE: NONE PATIENT'S CASE AND RESULTS HAVE BEEN DISCUSSED WITH THE ED ATTENDING PHYSICIAN, DR. APODACA AND HE AGREES WITH MY PLAN OF CARE. PATIENT WILL BE DISCHARGED HOME WITH RX [PREDNISONE AND ALBUTEROL INHALER] I HAVE INSTRUCTED THE PATIENT TO FOLLOW UP WITH THEIR PCP IN 1-2 DAYS. THE PATIENT FULLY UNDERSTANDS ARE AWARE THEY NEED TO FOLLOW UP WITH THEIR PCP FOR FURTHER EVALUATION IF THEIR SYMPTOMS PERSIST. Time of 1ST Reevaluation: 08:00 Reevaluation 1ST: Improved Patient Education/Counseling: Diagnosis, Treatment, Need For Follow Up Family Education/Counseling: Diagnosis, Treatment, Need For Follow Up Medical Screening: No EMC Exist At This Time SEPSIS Sepsis Screen Vital Signs Date Time Temp Pulse Resp B/P (MAP) Pulse Ox O2 Delivery O2 Flow Rate FiO2 02/07/25 06:56 20 92 Room Air* 0 21 02/07/25 06:50 16 93 Room Air* 0 21 02/07/25 06:49 76 16 165/85 (111) 93 02/07/25 06:42 22 96 Room Air* 0 21 02/07/25 06:42 98.6 78 16 147/77 (100) 96 98.6 Medications Medications Dose Ordered Sig/Fabian Route Start Time Stop Time Status Last Admin Dose Admin Albuterol 5 mg ONCE ONCE NEB 02/07/25 06:45 02/07/25 06:46 DC 02/07/25 06:58 Ipratropium [place] 1 mg ONCE ONCE NEB 02/07/25 06:45 02/07/25 06:46 DC 02/07/25 06:58 Methylprednisolone Sodium Succinate 125 mg ONCE ONCE IM 02/07/25 06:45 02/07/25 06:46 DC 02/07/25 06:48 Departure 1 Departure Time of Disposition: 08:00 Impression: Primary Impression: Acute asthma exacerbation Qualified Codes: J45.21 - Mild intermittent asthma with (acute) exacerbation Disposition: 01 HOME / SELF CARE / HOMELESS Condition: Stable Additional Instructions: FOLLOW UP WITH PCP IN 1-2 DAYS. TAKE MEDICATIONS PRESCRIBED. RETURN TO ED FOR ANY NEW OR WORSENING SYMPTOMS. e-Prescriptions Albuterol Sulfate (Albuterol Sulfate Hfa) 108 Mcg/Act Aer 108 MCG IN TID, #120 AER Prov: LOW HEAD 02/07/25 Prednisone (Prednisone) 20 Mg Tab 60 MG PO DAILY, #15 TAB Prov: LOW HEAD 02/07/25 Discharged With: Self Critical Care Note Critical Care Time?: No Stability Stability form required: No Heart Score Heart Score: Heart Score Response (Comments) Value History N/A 0 EKG N/A 0 Age N/A 0 Risk Factors N/A 0 Troponin N/A 0 Total 0 I personally scribed for LOW HEAD ([email or web address]) on 02/07/25 at 06:46. El ectronically submitted by Quang Briceño ([email or web address]). I personally scribed for LOW HEAD ([email or web address]) on 02/07/25 at 07:46. Renu ctronically submitted by Quang Briceño ([email or web address]). LOW HEAD Feb 07, 2025 06:46
[2025-02-07] MEDS: methylPREDNISolone SOD SUCC 125 MG/2 ML VL IM ONE (06:48)
[2025-02-07 06:49] VITALS: BP 165/85
[2025-02-07 06:50] VITALS: RESP 16; O2SAT 93
[2025-02-07 06:56] VITALS: RESP 20
[2025-02-07] MEDS: ALBUTEROL SULF 2.5 MG/0.5ML(0.5%) NEB SOLN NEB ONE (06:58)
[2025-02-07] MEDS: IPRATROPIUM BROM 0.5 MG/2.5ML INH SOL NEB ONE (06:58)
[2025-02-07] MEDS ORDERED: ALBU108A5 IN (07:47)
[2025-02-07] MEDS ORDERED: PRED20TA2 PO (07:47)
[2025-02-07 07:50] VITALS: PULSE 82; O2SAT 95
== END 2025-02-07 07:53 | disposition home or self-care (01) ==
LOC: ER 06:28
DX: J45.901 Unspecified asthma with (acute) exacerbation (principal)
CPT/HCPCS: 94640; 96372; 99283; J2919

== ENCOUNTER 2025-02-21 08:18 | Inpatient (IN) | payer OTHER ==
[~2025-02-21] VITALS: Ht 162.6 cm; Wt 94.2 kg
[~2025-02-21 08:18] MED LIST changes: +ALBU108A5 IN; +PRED20TA2 PO
--- NOTE | 2025-02-21 08:34 | ED.PDOC ---
Musculoskeletal HPI Comments A 65 YEAR OLD FEMALE PRESENTS TO THE ED WITH COMPLAINT OF BILATERAL LOWER EXTREMITY REDNESS AND SWELLING. PATIENT STATES SHE HAS BEEN EXPERIENCING BILATERAL LOWER LEG REDNESS, PAIN, AND SWELLING FOR THE PAST 2 WEEKS. PATIENT REPORTS SHE APPLIED AN ANTIBACTERIAL SOAP TO HER BILATERAL LOWER LEGS YESTERDAY, WHICH SHE STATES MADE HER REDNESS AND PAIN WORSE. PATIENT IS CONCERNED THAT SHE MAY HAVE AN INFECTION IN HER BILATERAL LOWER LEGS SINCE SHE IS CURRENTLY HOMELESS. PATIENT DENIES FEVER, CHILLS, SHORTNESS OF BREATH, CHEST PAIN, ABDOMINAL PAIN, NAUSEA, VOMITING, HEADACHE, OR OTHER COMPLAINTS. NO OTHER SYMPTOMS OR MODIFYING FACTORS AT THIS TIME. PATIENT IS ALERT, ORIENTED X 4, AND HAS STEADY GAIT. Time Seen by MD: 08:28 Primary Care Provider: NONE Reviewed Notes: Nurses Notes, Medications, Allergies Allergies: Coded Allergies: Sulfa Antibiotics (Verified Allergy, Severe, 11/20/24) Home Meds Active Scripts Albuterol Sulfate (Albuterol Sulfate Hfa) 108 Mcg/Act Aer, 108 MCG IN TID, #120 AER Prov:LOW HEAD 02/07/25 Prednisone (Prednisone) 20 Mg Tab, 60 MG PO DAILY, #15 TAB Prov:LOW HEAD 02/07/25 Methylprednisolone (Medrol Dosepak) 4 Mg Oscar, 4 MG PO UD, #21 TAB UAD Prov:ESAU WYATT MD 01/20/25 Clindamycin Hcl (Clindamycin Hcl) 300 Mg Cap, 1 CAP PO TID, #45 CAP Prov:ESAU WYATT MD 01/20/25 Azithromycin (Azithromycin) 500 Mg Tab, 1 TAB PO DAILY, #7 TAB Prov:ESAU WYATT MD 01/20/25 Methylprednisolone (Medrol Dosepak) 4 Mg Oscar, 4 MG PO UD, #21 TAB UAD Prov:ESAU WYATT MD 11/25/24 Azithromycin (Azithromycin) 500 Mg Tab, 1 TAB PO DAILY, #7 TAB Prov:ESAU WYATT MD 11/25/24 Fluticasone-Salmeterol (Advair Diskus 250/50) 1 Puff Ih, 1 PUFF INH BID, #1 INHALER 5 Refills Prov:ESAU WYATT MD 11/25/24 Information Source: Patient Mode of Arrival: Ambulatory Location: Bilateral Extremity Location: Leg (LOWER LEGS) Timing: Weeks Prehospital treatment: None Severity: Moderate Able to Move Extremity: Yes Bear Weight: Fully Pain: Moderate Mechanism: No Trauma, Spontaneous Circumstances: Spontaneous Onset of Symptoms: Spontaneous Symptoms: Swelling, Pain, Erythema DVT Risk Factors: NONE Last Tetanus: UTD, Unknown Associated signs and symptoms: None Past Medical History PAST MEDICAL HISTORY: Asthma Surgical History: Denies all surgeries 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 ASSEMBLY SUPERVISOR History: Denies all RIDE ASSEMBLY SUPERVISOR Hx Family History Family History: Reviewed,noncontributory to illness Social History Smoker: Non-Smoker Alcohol: Denies ETOH Use Drugs: Denies Drug Use Lives In: Homeless Constitutional: denies: chills, diaphoresis, fatigue, fever, malaise, sweats, weakness, others EENTM: denies: blurred vision, double vision, ear bleeding, ear discharge, ear drainage, ear pain, ear ringing, eye pain, eye redness, hearing loss, mouth pain, mouth swelling, nasal discharge, nose bleeding, nose congestion, nose pain, photophobia, tearing, throat pain, throat swelling, voice changes, others Respiratory: denies: cough, hemoptysis, orthopnea, SOB at rest, shortness of breath, SOB with excertion, stridor, wheezing, others Cardiovascular: denies: chest pain, dizzy spells, diaphoresis, Dyspnea on ex ertion, edema, irregular heart beat, left arm pain, lightheadedness, palpitations, PND, syncope, others Gastrointestinal: denies: abdomen distended, abdominal pain, blood streaked bowels, constipated, diarrhea, dysphagia, difficulty swallowing, hematemesis, melena, nausea, poor appetite, poor fluid intake, rectal bleeding, rectal pain, vomiting, others Genitourinary: denies: abnormal vagina bleeding, burning, dyspareunia, dysuria, flank pain, frequency, hematuria, incontinence, pain, , vagina discharge, urgency, others Neurological: denies: dizziness, fainting, headache, left sided numbness, left sided weakness, numbness, paresthesia, pre-existing deficit, right sided numbness, right sided weakness, seizure, speech problems, tingling, tremors, weakness, others Musculoskeletal: denies: back pain, gout, joint pain, joint swelling, muscle pain, muscle stiffness, neck pain, others Integumetry: reports: lesions, rash, wounds, others (BILATERAL LOWER LEG REDNESS, SWELLING, AND PAIN); denies: bruises, change in color, change in hair/nails, dryness, laceration, lumps Allergic/Immunocompromised: denies: Difficulty Healing, Frequent Infections, Hives, Itching, others Hematologic/Lymphatic: denies: anemia, blood clots, easy bleeding, easy bruising, swollen glands, others Endocrine: denies: excessive hunger, excessive sweating, excessive thirst, excessive urination, flushing, intolerance to cold, intolerance to heat, unexplained weight gain, unexplained weight loss, others Psychiatric: denies: anxiety, bipolar disorder, depression, hopeless, panic disorder, schizophrenia, sleepless, suicidal, others All Other Systems: Reviewed and Negative Physical Exam General Appearance: No Apparent Distress, Normal HEENT: Normal ENT Inspection, PERRL/EOMI, Pharynx Normal, TMs Normal Neck: Full Range of Motion, Non-Tender, Normal, Normal Inspection Respiratory: Chest Non-Tender, Lungs Clear, No Accessory Muscle Use, No Respiratory Distress, Normal Breath Sounds Cardiovascular: No Edema, No JVD, No Murmur, No Gallop, Normal Peripheral Pulses, Regular Rate/Rhythm Breast Exam: Deferred Gastrointestinal: No Organomegaly, Non Tender, No Pulsatile Mass, Normal Bowel Sounds, Soft Genitalia: Deferred Pelvic: Deferred Rectal: Deferred Extremities: Decreased range of motion, No calf tenderness, Normal capillary refill, No pedal edema, Swelling (TENDERNESS AND REDNESS ON BILATERAL LOWER LEGS, NO BONY TENDERNESS AND DEFORMITY. ), Tender (WITH REDNESS AND PATCH SKIN RASH ON BILATERAL LOWER LEG, NO DVT SIGNS, +CELLULITIS/ERYSIPELAS. ) Musculoskeletal : Apperance: Normal Neurologic: Alert, program counselor II-XII nml as Tested, No Motor Deficits, Normal Affect, Normal Mood, No Sensory Deficits Cerebellar Function: Normal Reflexes: Normal Skin: Dry, Warm, Wounds (LOCALIZED ERYTHEMA, SWELLING AND MILD BLISTERS ON BILATERAL LOWER LEGS, NO PUS DRAINAGE, +ERYSIPELAS. ) Peripheral Pulses: 2+ carotid (R), 2+ carotid (L), 2+ dorsalis pedis (R), 2+ dorsalis pedis (L) Lymphatic: No Adenopathy Was a procedure done? Was a procedure done?: No Differential Diagnosis EXT Differential Diagnosis: Cellulitis, Strain Other Differential Diagnosis ERYSIPELAS, SOFT TISSUE INFECTION X-Ray, Labs, Meds, VS Vital Signs Date Time Temp Pulse Resp B/P (MAP) Pulse Ox O2 Delivery O2 Flow Rate FiO2 02/21/25 09:55 74 16 95 Room Air 02/21/25 09:55 99.8 74 16 150/81 (104) 95 99.8 02/21/25 08:38 98.6 84 18 136/98 (111) 91 98.6 Lab Test 02/21/25 09:18 02/21/25 08:41 Range/Units White Blood Count 15.8 H 4.4-10.8 10^3/uL Red Blood Count 4.86 4.0-5.20 10^6/uL Hemoglobin 14.8 12.2-16.2 g/dL Hematocrit 44.7 36.0-46.0 % Mean Corpuscular Volume 92.0 80.0-100.0 fL Mean Corpuscular Hemoglobin 30.6 28.0-32.0 pg Mean Corpuscular Hemoglobin Concent 33.2 32.0-36.0 g/dL Red Cell Distribution Width 14.1 11.8-14.3 % Platelet Count 203 140-450 10^3/uL Mean Platelet Volume 9.0 6.9-10.8 fL Neutrophils (%) (Auto) 82.4 H 37.0-80.0 % Lymphocytes (%) (Auto) 10.8 10.0-50.0 % Monocytes (%) (Auto) 6.4 0.0-12.0 % Eosinophils (%) (Auto) 0.3 0.0-7.0 % Basophils (%) (Auto) 0.1 0.0-2.0 % Neutrophils # (Auto) 13.0 H 1.6-8.6 10 ^3/uL Lymphocytes # (Auto) 1.7 0.4-5.4 10 ^3/uL Monocytes # (Auto) 1.0 0-1.3 10 ^3/uL Eosinophils # (Auto) 0 0-0.8 10 ^3/uL Basophils # (Auto) 0 0-0.2 10 ^3/uL Nucleated Red Blood Cells 0.0 % Sodium Level 143 136-145 mmol/L Potassium Level 3.6 3.5-5.1 mmol/L Chloride Level 106 98-107 mmol/L Carbon Dioxide Level 27 20-31 mmol/L Anion Gap 10 5-15 Blood Urea Nitrogen 22 9-23 mg/dL Creatinine 0.74 0.550-1.02 mg/dL Glomerular Filtration Rate Calc 90 >90 mL/min BUN/Creatinine Ratio 29.7 H 10.0-20.0 Serum Glucose 83 74-106 mg/dL Lactic Acid Level Pending Calcium Level 9.9 8.7-10.4 mg/dL Urine Color Light-yellow Yellow Urine Clarity Clear Clear Urine pH 6.5 5.0-9.0 Urine Specific [place] 1.019 1.001-1.035 Urine Protein Negative Negative Urine Ketones Negative Negative Urine Blood Negative Negative /uL Urine Nitrite Negative Negative Urine Bilirubin Negative Negative Urine Urobilinogen Normal Negative mg/dL Urine Leukocyte Esterase 3+ Negative /uL Urine RBC 3 0 - 4 /hpf Urine Microscopic WBC 17 H 0-5 /HPF Urine Squamous Epithelial Cells Few <5 /hpf Urine Bacteria Few H None Seen /hpf Urine Glucose Normal Normal mg/dL X-Ray, Labs, Meds, VS Comment EXTERNAL MEDICAL RECORDS REVIEWED: [NONE] INDEPENDENT HISTORIANS: [NONE] SOCIAL DETERMINANTS OF HEALTH: PATIENT IS CURRENTLY HOMELESS LABS ORDERED: CBC, BMP, UA, LACTIC ACID W/REFLEX, BLOOD CULTURE, WOUND CULTURE REVIEWED AND INTERPRETED RESULTS: WBC 15.8, LEUKOCYTES 3+ IMAGING ORDERED: NONE TREATMENTS ORDERED: ROCEPHIN 1 G IV, CLINDAMYCIN 600 MG IV PROCEDURES PERFORMED: NONE CRITICAL CARE TIME: NONE I HAVE DISCUSSED THE PATIENT WITH THE ATTENDING PHYSICIAN DR. OVALLE AND HE AGREES WITH THE PATIENT'S PLAN OF CARE. UPON MY PHYSICAL EXAMINATION, THE PATIENT HAD ERYTHEMA AND MILD SWELLING NOTED TO HER BILATERAL LOWER EXTREMITIES WITH MULTIPLE SMALL BLISTERS NOTED, BUT NO O PEN WOUNDS OR PASSENGER DRAINAGE. LABS ORDERED FOR THE PATIENT WHICH REVEALED AN ELEVATED WHITE BLOOD COUNT OF 15.8 AND LEUKOCYTES 3+ IN HER URINE SUGGESTING A URINARY TRACT INFECTION. DUE TO THE PATIENT CLINICAL EXAM FINDINGS BEING CONSISTENT WITH ERYSIPELAS, I HAVE DETERMINED THE PATIENT NEEDS TO BE ADMITTED FOR FURTHER TREATMENT AND EVALUATION. THE ON-CALL HOSPITALIST WILL BE CONTACTED FOR ADMISSION OF THIS PATIENT. Time of 1ST Reevaluation: 10:05 Reevaluation 1ST: Unchanged Patient Education/Counseling: Diagnosis, Treatment Family Education/Counseling: Diagnosis, Treatment Sepsis Sepsis Reasesment Focused Exam Orders: Laboratory Tests 02/21/25 09:18: Departure 1 Departure Time of Disposition: 10:05 Impression: Primary Impression: Erysipelas of both lower extremities Additional Impression: Acute UTI (urinary tract infection) Disposition: ADMITTED INPATIENT Condition: Serious Critical Care Note Critical Care Time?: No Stability Stability form required: Yes Unstable for transfer: Requires medication, ED Physician Assesment, Possible rapid decline I personally scribed for LOW HEAD ([email or web address]) on 02/21/25 at 08:34. Electronically submitted by Quang Briceño ([employer]). I personally scribed for OLW HEAD ([email or web address]) on 02/21/25 at 08:43. Electronically submitted by Quang Briceño ([email or web address]). I personally scribed for LOW HEAD ([email or web address]) on 02/21/25 at 10:00. Electronically submitted by Quang Briceño ([email or web address]). LOW HEAD Feb 21, 2025 08:34
[2025-02-21 09:11] LABS: Urine Protein, UAD Negative (Negative)
[2025-02-21 09:47] LABS: Chloride 106 mmol/L (98-107); Potassium 3.6 mmol/L (3.5-5.1); Sodium 143 mmol/L (136-145)
[2025-02-21 09:48] LABS: Anion Gap 10 (5-15); Calcium 9.9 mg/dL (8.7-10.4); Carbon Dioxide 27 mmol/L (20-31); Hematocrit 44.7 % (36.0-46.0); Hemoglobin 14.8 g/dL (12.2-16.2); Mean Corpuscular Hemoglobin 30.6 pg (28.0-32.0); Mean Corpuscular Volume 92.0 fL (80.0-100.0); Nucleated Red Blood Cells % 0.0 %
[2025-02-21 09:53] LABS: BUN/Creatinine Ratio 29.7 (10.0-20.0); Blood Urea Nitrogen 22 mg/dL (9-23); Glucose 83 mg/dL (74-106)
[2025-02-21] MEDS: cefTRIAXone 1GM/50ML D5W 50 ML IV ONE (10:39)
[2025-02-21] MEDS: CLINDAMYCIN 900MG IV 50 ML IV ONE (11:27)
[2025-02-21] MEDS ORDERED: DOCUSATE SOD 100 MG CAP PO PRN (11:45)
[2025-02-21] MEDS ORDERED: ONDANSETRON HCL 4 MG/2 ML VIAL IV PRN (11:45)
[2025-02-21] MEDS ORDERED: HYDROcodone-ACET 5/325MG TAB PO PRN (11:45)
--- NOTE | 2025-02-21 11:59 | DVHHP2 ---
History of Present Illness Reason for Visit: Bilateral leg swelling and pain History of Present Illness Nata Camejo is a 65-year-old female with past medical history of asthma, who came to the hospital for bilateral lower extremity pain and swelling. The patient states she has had bilateral lower extremity cellulitis intermittently for a couple years. She states at times the swelling is minimal, there is no redness, pain, or oozing. She states this flair up started a couple days ago and worsened yesterday after she used an antibacterial soap on her legs. Pulmonary: Asthma Past Surgical History: Other (left ovary), Tonsillectomy Smoke: No ALCOHOL: none Drugs: None Lives: Homeless Domestic Violence: Neg Review of Systems Constitutional: Yes: Fever, Chills, Sweats, Malaise; No: Weakness, Other Eyes: No: Pain, Vision change, Conjunctivae inflammation, Eyelid inflammation, Other, Redness ENT: No: Ear pain, Ear discharge, Nose pain, Nose discharge, Nose congestion, Mouth pain, Mouth swelling, Throat pain, Throat swelling, Other Respiratory: No: Cough, Dry, Shortness of breath, SOB with excertion, Wheezing, Hemoptysis, Pleuritic Pain, Sputum, Wheezing, Other Cardiovascular: No: Chest Pain, Palpitations, Orthopnea, Paroxysmal Noc. Dyspnea, Edema, Lt Headedness, Other Gastrointestinal: No: Nausea, Vomiting, Abdominal Pain, Diarrhea, Constipation, Melena, Hematochezia, Other Genitourinary: No Dysuria, No Frequency, No Incontinence, No Hematuria, No Retention, No Other Musculoskeletal: leg pain (bilateral lower extremities); No: other, neck pain, shoulder pain, arm pain, back pain, hand pain, foot pain Skin: Other (bilateral lower extremities redness, swelling, oozing); No: Rash, Lesions, Jaundice, Bruising Neurological: No: Weakness, Numbness, Incoordination, Change in speech, Confusion, Seizures, Other Allergies: Coded Allergies: Sulfa Antibiotics (Verified Allergy, Severe, 11/20/24) Exam Vital Signs Vital Signs Date Time Temp Pulse Resp B/P (MAP) Pulse Ox O2 Delivery O2 Flow Rate FiO2 02/21/25 11:34 99.0 82 16 144/88 (106) 95 99.0 02/21/25 11:34 Room Air General Appearance: Alert, Oriented X3, Cooperative, mild distress HEENT: Atraumatic, PERRLA, Mucous membr. moist/pink Respiratory: Clear to auscultation, Normal air movement Cardiovascular: Regular rate, Normal S1, Normal S2, No murmurs Abdominal: Normal bowel sounds, Soft, No tenderness Extremities: No clubbing, No cyanosis, Other (bilateral lower extremities edema) Skin: No breakdown (bilateral lower extremities redness, swelling, oozing) Neuro: Normal gait, Normal speech, Strength at 5/5 X4 ext Psych/Mental Status: Mental status NL, Mood NL Labs/Xrays Labs Test 02/21/25 09:18 02/21/25 08:41 Range/Units White Blood Count 15.8 H 4.4-10.8 10^3/uL Red Blood Count 4.86 4.0-5.20 10^6/uL Hemoglobin 14.8 12.2-16.2 g/dL Hematocrit 44.7 36.0-46.0 % Mean Corpuscular Volume 92.0 80.0-100.0 fL Mean Corpuscular Hemoglobin 30.6 28.0-32.0 pg Mean Corpuscular Hemoglobin Concent 33.2 32.0-36.0 g/dL Red Cell Distribution Width 14.1 11.8-14.3 % Platelet Count 203 140-450 10^3/uL Mean Platelet Volume 9.0 6.9-10.8 fL Neutrophils (%) (Auto) 82.4 H 37.0-80.0 % Lymphocytes (%) (Auto) 10.8 10.0-50.0 % Monocytes (%) (Auto) 6.4 0.0-12.0 % Eosinophils (%) (Auto) 0.3 0.0-7.0 % Basophils (%) (Auto) 0.1 0.0-2.0 % Neutrophils # (Auto) 13.0 H 1.6-8.6 10 ^3/uL Lymphocytes # (Auto) 1.7 0.4-5.4 10 ^3/uL Monocytes # (Auto) 1.0 0-1.3 10 ^3/uL Eosinophils # (Auto) 0 0-0.8 10 ^3/uL Basophils # (Auto) 0 0-0.2 10 ^3/uL Nucleated Red Blood Cells 0.0 % Sodium Level 143 136-145 mmol/L Potassium Level 3.6 3.5-5.1 mmol/L Chloride Level 106 98-107 mmol/L Carbon Dioxide Level 27 20-31 mmol/L Anion Gap 10 5-15 Blood Urea Nitrogen 22 9-23 mg/dL Creatinine 0.74 0.550-1.02 mg/dL Glomerular Filtration Rate Calc 90 >90 mL/min BUN/Creatinine Ratio 29.7 H 10.0-20.0 Serum Glucose 83 74-106 mg/dL Lactic Acid Level 1.8 0.4-2.0 mmol/L Calcium Level 9.9 8.7-10.4 mg/dL Urine Color Light-yellow Yellow Urine Clarity Clear Clear Urine pH 6.5 5.0-9.0 Urine Specific [place] 1.019 1.001-1.035 Urine Protein Negative Negative Urine Ketones Negative Negative Urine Blood Negative Negative /uL Urine Nitrite Negative Negative Urine Bilirubin Negative Negative Urine Urobilinogen Normal Negative mg/dL Urine Leukocyte Esterase 3+ Negative /uL Urine RBC 3 0 - 4 /hpf Urine Microscopic WBC 17 H 0-5 /HPF Urine Squamous Epithelial Cells Few <5 /hpf Urine Bacteria Few H None Seen /hpf Urine Glucose Normal Normal mg/dL SEPSIS Sepsis Screen Date sepsis recognized/suspect: Feb 21, 2025 Time Sepsis recognized/suspect: 827 Recent Procedure: No On Antibiotic Therapy: No Respiratory Rate >20: No Heart Rate >90: No Temp<36 C (96.8 F) or >38.3 C: No SBP <90 or MAP <65 mmHG: No New Acute Mental Status Change: No Is the patient on CPAP, BIPAP,: No Physician Orders Heplock Iv (02/21/25 08:41) Wound Culture W/ Gs (02/21/25 08:41) Blood Culture (02/21/25 08:41) Urine Bacterial Culture (02/21/25 09:19) Admit (02/21/25 11:38) Code Status (02/21/25 11:38) Hydrocodone-Acet 5/325mg Tab (Boissevain 5/32 (02/21/25 11:45) Ondansetron Hcl (Zofran) (02/21/25 11:45) Docusate Sodium Capsule (Colace Capsule) (02/21/25 11:45) Complete Blood Count (02/22/25 04:00) Comprehensive Metabolic Panel (02/22/25 04:00) Condition: Serious (02/21/25 11:38) Acetaminophen Tablet (Tylenol Tablet) (02/21/25 11:45) Regular Diet (02/21/25 Lunch) * Organic Gardening Teacher Consult (02/21/25 ) * Wound Consult (02/21/25 ) Ceftriaxone Ivpb Rocephin (02/22/25 09:00) Clindamycin Ivpb Cleocin (02/21/25 14:00) NS (02/21/25 11:45) NS (02/21/25 11:45) Vital Signs Date Time Temp Pulse Resp B/P (MAP) Pulse Ox O2 Delivery O2 Flow Rate FiO2 02/21/25 11:34 99.0 82 16 144/88 (106) 95 99.0 02/21/25 11:34 82 16 95 Room Air 02/21/25 09:55 74 16 95 Room Air 02/21/25 09:55 99.8 74 16 150/81 (104) 95 99.8 02/21/25 08:38 98.6 84 18 136/98 (111) 91 98.6 Laboratory Tests Test 02/21/25 09:18 Lactic Acid Level 1.8 mmol/L (0.4-2.0) White Blood Count 15.8 10^3/uL (4.4-10.8) H Medications Medications Dose Ordered Sig/Fabian Route Start Time Stop Time Status Last Admin Dose Admin Ceftriaxone Sodium 50 ml @ 100 mls/hr ONCE ONCE IV 02/21/25 08:45 02/21/25 09:14 DC 02/21/25 10:39 100 MLS/HR Clindamycin Phosphate 50 ml @ 50 mls/hr ONCE ONCE IV 02/21/25 08:45 02/21/25 09:44 DC 02/21/25 11:27 50 MLS/HR Assessment/Plan Assessment/Plan Assessment: Cellulitis of both lower extremities, UTI, Leukocytosis, Plan: Admit to Med-Surg, Social service consult, IV antibiotics, IV hydration, Wound consult, Wound culture, Urine culture, Plan discussed with: Patient My Orders Orders - SABA BRUSH MANAGEMENT ARCHITECT Procedure Category Date Status Time Admit ADMIT 02/21/25 Verified 11:38 Code Status CODE 02/21/25 Verified 11:38 Hydrocodone-Acet PHA 02/21/25 Verified 5/325mg Tab (Boissevain 11:45 Ondansetron Hcl PHA 02/21/25 Verified (Zofran) 11:45 Docusate Sodium PHA 02/21/25 Verified Capsule (Colace 11:45 Complete Blood Count LAB 02/22/25 Verified 04:00 Comprehensive LAB 02/22/25 Verified Metabolic Panel 04:00 Condition: Serious DANIEL 02/21/25 Verified 11:38 Acetaminophen Tablet PHA 02/21/25 Verified (Tylenol Tablet) 11:45 Regular Diet DIET 02/21/25 Verified Lunch * Organic Gardening Teacher CONS 02/21/25 Verified Consult * Wound Consult CONS 02/21/25 Verified Ceftriaxone Ivpb PHA 02/22/25 Verified Rocephin 09:00 Clindamycin Ivpb PHA 02/21/25 Verified Cleocin 14:00 NS PHA 02/21/25 Verified 11:45 NS PHA 02/21/25 Verified 11:45 Date of Service: Feb 21, 2025 Billing Provider: SABA BRUSH Common Visit Codes: [id number] INP/OBS CARE (MOD) SABA BRUSH Feb 21, 2025 11:59
[2025-02-21] MEDS: SODIUM CHLORIDE 0.9% 1,000 ML IV ONE ×2 (12:05→12:06)
[2025-02-21] MEDS: CLINDAMYCIN 600MG IV 50 ML IV SCH (14:00)
[2025-02-21 17:11] VITALS: BP 162/48; PULSE 89; RESP 20; TEMP 99.4; O2SAT 94
[2025-02-21 17:37] VITALS: BP 150/85; PULSE 89; RESP 18; TEMP 98; O2SAT 91
[2025-02-21 18:35] VITALS: BP 150/85; PULSE 89; RESP 18; TEMP 98; O2SAT 91
[2025-02-21 20:00] VITALS: PULSE 77; RESP 18; O2SAT 98
[2025-02-21 21:00] VITALS: BP 133/59; PULSE 77; RESP 18; TEMP 97.9; O2SAT 95
[2025-02-22] VITALS (8 sets, daily range): BP systolic 127–156; BP diastolic 68–86; PULSE 72–87; RESP 16–18; TEMP 96.8–98.8; O2SAT 91–98
[2025-02-22 08:12] LABS: Alanine Aminotransferase 25 U/L (7-40); Albumin 3.7 g/dL (3.2-4.8); Alkaline Phosphatase 63 U/L (46-116); Anion Gap 11 (5-15); BUN/Creatinine Ratio 29.3 (10.0-20.0); Bilirubin, Total 1.0 mg/dL (0.2-1.0); Blood Urea Nitrogen 17 mg/dL (9-23); Calcium 9.3 mg/dL (8.7-10.4); Carbon Dioxide 25 mmol/L (20-31); Chloride 107 mmol/L (98-107); Glucose 85 mg/dL (74-106); Potassium 3.5 mmol/L (3.5-5.1); Sodium 143 mmol/L (136-145); Total Protein 5.3 g/dL (5.7-8.2)
[2025-02-22 08:24] LABS: Hematocrit 37.9 % (36.0-46.0); Hemoglobin 13.1 g/dL (12.2-16.2); Mean Corpuscular Hemoglobin 31.6 pg (28.0-32.0); Mean Corpuscular Volume 91.8 fL (80.0-100.0); Nucleated Red Blood Cells % 0.1 %
[2025-02-22] MEDS: cefTRIAXone 1GM/50ML D5W 50 ML IV SCH (09:36)
[2025-02-22] MEDS: ACETAMINOPHEN 325 MG TAB PO PRN (14:15)
--- NOTE | 2025-02-22 18:44 | DVHPN2 ---
Subjective Feels better. She said that she is homeless and she needs help Reviewed: Care Plan, H&P, Labs, Medications, Previous Orders, Radiology Changes from previous H/P or p: No Changes Objective Vitals Vital Signs Date Time Temp Pulse Resp B/P (MAP) Pulse Ox O2 Delivery O2 Flow Rate FiO2 02/22/25 17:00 98.8 81 16 146/68 (94) 94 98.8 02/22/25 08:24 Room Air* 0 21 Intake/Output Intake and Output 02/22/25 07:00 Intake Total 1140 ml Balance 1140 ml Intake Oral 1040 ml IV Total 100 ml # Voids 3 General Appearance: Alert, Oriented X3, Cooperative, No acute distress HEENT: Atraumatic Lungs: Clear to auscultation Cardiovascular: Regular rate Medications Current Medications Medications Dose Ordered Sig/Fabian Route Start Time Stop Time Status Last Admin Dose Admin Acetaminophen/ Hydrocodone Bitart 1 tab Q4HP PRN PO 02/21/25 11:45 Ondansetron HCl 4 mg Q4HP PRN IV 02/21/25 11:45 Docusate Sodium 100 mg BIDPRN PRN PO 02/21/25 11:45 Acetaminophen 650 mg Q6HP PRN PO 02/21/25 11:45 02/22/25 14:15 650 MG Ceftriaxone Sodium 50 ml @ 100 mls/hr DAILY@09 IV 02/22/25 09:00 02/22/25 09:36 100 MLS/HR Clindamycin Phosphate 50 ml @ 50 mls/hr Q8HR IV 02/21/25 14:00 02/22/25 14:14 50 MLS/HR Laboratory Results Laboratory Tests 02/22/25 05:46 Chemistry Test 02/22/25 05:46 Albumin 3.7 g/dL (3.2-4.8) Calcium Level 9.3 mg/dL (8.7-10.4) Total Protein 5.3 g/dL (5.7-8.2) L LFT Test 02/22/25 05:46 Alanine Aminotransferase (ALT) 25 U/L (7-40) Alkaline Phosphatase 63 U/L (46-116) Aspartate Amino Transferase (AST) 15 U/L (13-40) Total Bilirubin 1.0 mg/dL (0.2-1.0) Urinalysis Test 02/21/25 08:41 Urine Color Light-yellow (Yellow) Urine Clarity Clear (Clear) Urine pH 6.5 (5.0-9.0) Urine Specific [place] 1.019 (1.001-1.035) Urine Protein Negative (Negative) Urine Ketones Negative (Negative) Urine Blood Negative /uL (Negative) Urine Nitrite Negative (Negative) Urine Bilirubin Negative (Negative) Urine Urobilinogen Normal mg/dL (Negative) Urine Leukocyte Esterase 3+ /uL (Negative) Urine RBC 3 /hpf (0 - 4) Urine Microscopic WBC 17 /HPF (0-5) H Urine Squamous Epithelial Cells Few /hpf (<5) Urine Bacteria Few /hpf (None Seen) H Urine Glucose Normal mg/dL (Normal) Microbiology Microbiology Date/Time Source Procedure Growth Status 02/21/25 18:41 Nose MRSA Screen - Final Complete 02/21/25 09:18 Blood Blood Culture - Preliminary NO GROWTH AFTER 24 HOURS OF INCUBATION. Resulted 02/21/25 08:41 Voided Urine Urine Culture - Preliminary Resulted Assessment/Plan Assessment/Plan Bilateral lower extremity cellulitis UTI Sepsis with leukocytosis Asthma Right kidney stone Homelessness Plan: Continue current plan of care. Social service for disposition Plan discussed with: Patient My Orders Orders - BINA WHELAN MD Procedure Category Date Status Time Cleanse Wound With DANIEL 02/22/25 In Process Wound Clean 11:00 Date of Service: Feb 22, 2025 Billing Provider: BINA WHELAN MD Common Visit Codes: [id number] INP/OBS CARE(HIGH) BINA WHELAN MD Feb 22, 2025 18:44
[2025-02-23] VITALS (9 sets, daily range): BP systolic 133–154; BP diastolic 72–96; PULSE 62–79; RESP 16–18; TEMP 97.7–98.3; O2SAT 93–94
--- NOTE | 2025-02-23 16:14 | DVHPN2 ---
Subjective No changes Reviewed: Care Plan, H&P, Labs, Medications, Previous Orders, Radiology Changes from previous H/P or p: No Changes Objective Vitals Vital Signs Date Time Temp Pulse Resp B/P (MAP) Pulse Ox O2 Delivery O2 Flow Rate FiO2 02/23/25 13:00 97.7 62 16 154/73 (100) 94 97.7 02/23/25 08:17 Room Air* 0 21 Intake/Output Intake and Output 02/23/25 07:00 Intake Total 3180 ml Balance 3180 ml Intake Oral 2980 ml IV Total 200 ml # Voids 8 # Bowel Movements 1 General Appearance: Alert, Oriented X3, Cooperative, No acute distress HEENT: Atraumatic Lungs: Clear to auscultation Cardiovascular: Regular rate Medications Current Medications Medications Dose Ordered Sig/Fabian Route Start Time Stop Time Status Last Admin Dose Admin Acetaminophen/ Hydrocodone Bitart 1 tab Q4HP PRN PO 02/21/25 11:45 Ondansetron HCl 4 mg Q4HP PRN IV 02/21/25 11:45 Docusate Sodium 100 mg BIDPRN PRN PO 02/21/25 11:45 Acetaminophen 650 mg Q6HP PRN PO 02/21/25 11:45 02/22/25 14:15 650 MG Ceftriaxone Sodium 50 ml @ 100 mls/hr DAILY@09 IV 02/22/25 09:00 02/23/25 08:33 100 MLS/HR Clindamycin Phosphate 50 ml @ 50 mls/hr Q8HR IV 02/21/25 14:00 02/23/25 14:44 50 MLS/HR Laboratory Results Laboratory Tests 02/22/25 05:46 Urinalysis Test 02/21/25 08:41 Urine Color Light-yellow (Yellow) Urine Clarity Clear (Clear) Urine pH 6.5 (5.0-9.0) Urine Specific [place] 1.019 (1.001-1.035) Urine Protein Negative (Negative) Urine Ketones Negative (Negative) Urine Blood Negative /uL (Negative) Urine Nitrite Negative (Negative) Urine Bilirubin Negative (Negative) Urine Urobilinogen Normal mg/dL (Negative) Urine Leukocyte Esterase 3+ /uL (Negative) Urine RBC 3 /hpf (0 - 4) Urine Microscopic WBC 17 /HPF (0-5) H Urine Squamous Epithelial Cells Few /hpf (<5) Urine Bacteria Few /hpf (None Seen) H Urine Glucose Normal mg/dL (Normal) Microbiology Microbiology Date/Time Source Procedure Growth Status 02/21/25 18:41 Nose MRSA Screen - Final Complete 02/21/25 09:18 Blood Blood Culture - Preliminary NO GROWTH AFTER 48 HOURS OF INCUBATION. Resulted 02/21/25 08:41 Voided Urine Urine Culture - Final Complete Assessment/Plan Assessment/Plan Bilateral lower extremity cellulitis UTI Sepsis with leukocytosis Asthma Right kidney stone Homelessness Plan: Continue Rocephin for now. Plan discussed with: Patient Date of Service: Feb 23, 2025 Billing Provider: BINA WHELAN MD Common Visit Codes: [id number] INP/OBS CARE(MOD) BINA WHELAN MD Feb 23, 2025 16:14
[2025-02-24] VITALS (13 sets, daily range): BP systolic 114–130; BP diastolic 59–80; PULSE 65–104; RESP 16–22; TEMP 97.1–98.4; O2SAT 92–100
[2025-02-24] MEDS: ALBUTEROL SULF 2.5 MG/0.5ML(0.5%) NEB SOLN NEB PRN (00:36)
--- NOTE | 2025-02-24 10:23 | DVHPN2 ---
Subjective Decreasing lower extremities pain Reviewed: Care Plan, H&P, Labs, Medications, Previous Orders, Radiology Changes from previous H/P or p: Changes Objective Vitals Vital Signs Date Time Temp Pulse Resp B/P (MAP) Pulse Ox O2 Delivery O2 Flow Rate FiO2 02/24/25 09:23 85 18 99 02/24/25 09:17 Room Air* 0 21 02/24/25 08:44 97.8 117/67 (84) 97.8 Intake/Output Intake and Output 02/24/25 07:00 Intake Total 1640 ml Balance 1640 ml Intake Oral 1440 ml IV Total 200 ml # Voids 7 # Bowel Movements 1 General Appearance: Alert, Oriented X3, Cooperative, No acute distress HEENT: Atraumatic Lungs: Clear to auscultation, Normal air movement Cardiovascular: Regular rate, Normal S1, Normal S2 Abdomen: Normal bowel sounds, Soft, No tenderness Extremities: Other (Clean legs dressing) Neuro: Normal speech, Cranial nerves 3-12 NL Skin: Other (Refer to nursing documentation) Psych/Mental Status: Mental status NL, Mood NL Medications Current Medications Medications Dose Ordered Sig/Fabian Route Start Time Stop Time Status Last Admin Dose Admin Acetaminophen/ Hydrocodone Bitart 1 tab Q4HP PRN PO 02/21/25 11:45 Ondansetron HCl 4 mg Q4HP PRN IV 02/21/25 11:45 Docusate Sodium 100 mg BIDPRN PRN PO 02/21/25 11:45 Acetaminophen 650 mg Q6HP PRN PO 02/21/25 11:45 02/22/25 14:15 650 MG Ceftriaxone Sodium 50 ml @ 100 mls/hr DAILY@09 IV 02/22/25 09:00 02/24/25 09:42 100 MLS/HR Clindamycin Phosphate 50 ml @ 50 mls/hr Q8HR IV 02/21/25 14:00 02/24/25 05:07 50 MLS/HR Albuterol 2.5 mg Q6HPRN PRN NEB 02/23/25 23:45 02/24/25 09:17 2.5 MG Laboratory Results Laboratory Tests 02/22/25 05:46 Urinalysis Test 02/21/25 08:41 Urine Color Light-yellow (Yellow) Urine Clarity Clear (Clear) Urine pH 6.5 (5.0-9.0) Urine Specific [place] 1.019 (1.001-1.035) Urine Protein Negative (Negative) Urine Ketones Negative (Negative) Urine Blood Negative /uL (Negative) Urine Nitrite Negative (Negative) Urine Bilirubin Negative (Negative) Urine Urobilinogen Normal mg/dL (Negative) Urine Leukocyte Esterase 3+ /uL (Negative) Urine RBC 3 /hpf (0 - 4) Urine Microscopic WBC 17 /HPF (0-5) H Urine Squamous Epithelial Cells Few /hpf (<5) Urine Bacteria Few /hpf (None Seen) H Urine Glucose Normal mg/dL (Normal) Microbiology Microbiology Date/Time Source Procedure Growth Status 02/21/25 18:41 Nose MRSA Screen - Final Complete 02/21/25 09:18 Blood Blood Culture - Preliminary NO GROWTH AFTER 72 HOURS OF INCUBATION. Resulted 02/21/25 08:41 Voided Urine Urine Culture - Final Complete Labs and/or images reviewed: Labs reviewed by me, Image(s) reviewed by me Assessment/Plan Assessment/Plan Covering: # Sepsis with leukocytosis due to bilateral lower extremities cellulitis and suspected UTI # Bilateral lower extremities cellulitis # Nonobstructing right renal calculi # Asthma; not in exacerbation # Suspected UTI # Homelessness # Obesity Continue IV antibiotics Reviewed the available cultures including blood, urine, and wound Wound care nurse is following [employer] is following Continue nebulizers as needed Counseled the patient on the importance of adopting healthy lifestyle with diet and exercise in order to lose weight Continue pain management as needed Continue monitoring Goals of care discussed with the patient for 20 minutes; full code Late Entry. This medical document was created using an electronic medical record system with computerized dictation system. Although this document has been carefully reviewed, there might still be some phonetic and typographical errors. These areas are purely typographical due to imperfections of the software programs, and do not reflect any compromise in the patient's medical care. Plan discussed with: Patient, Other (Nurse) Date of Service: Feb 24, 2025 Billing Provider: PANTERA SMALLS MD Common Visit Codes: [id number] INP/OBS CARE(HIGH) Secondary Visit Codes: [id number] CARE PLAN 30 MINUTES (20 minutes) PANTERA SMALLS MD Feb 24, 2025 10:23
[2025-02-25] VITALS (12 sets, daily range): BP systolic 110–135; BP diastolic 61–76; PULSE 75–91; RESP 14–19; TEMP 97.4–98.4; O2SAT 92–100
[2025-02-25] MEDS: ALBUTEROL SULF 2.5 MG/0.5ML(0.5%) NEB SOLN NEB SCH (06:02)
--- NOTE | 2025-02-25 07:30 | DVHPN2 ---
Subjective Decreasing lower extremities pain Reviewed: Care Plan, H&P, Labs, Medications, Previous Orders, Radiology Changes from previous H/P or p: Changes Objective Vitals Vital Signs Date Time Temp Pulse Resp B/P (MAP) Pulse Ox O2 Delivery O2 Flow Rate FiO2 02/25/25 06:08 80 14 100 02/25/25 06:02 Room Air* 0 21 02/25/25 05:00 98.1 132/71 (91) 98.1 Intake/Output Intake and Output 02/25/25 07:00 Intake Total 1970 ml Balance 1970 ml Intake Oral 1870 ml IV Total 100 ml # Voids 9 # Bowel Movements 2 General Appearance: Alert, Oriented X3, Cooperative, No acute distress HEENT: Atraumatic Lungs: Clear to auscultation, Normal air movement Cardiovascular: Regular rate, Normal S1, Normal S2 Abdomen: Normal bowel sounds, Soft, No tenderness Extremities: Other (Clean legs dressing) Neuro: Normal speech, Cranial nerves 3-12 NL Skin: Other (Refer to nursing documentation) Psych/Mental Status: Mental status NL, Mood NL Medications Current Medications Medications Dose Ordered Sig/Fabian Route Start Time Stop Time Status Last Admin Dose Admin Acetaminophen/ Hydrocodone Bitart 1 tab Q4HP PRN PO 02/21/25 11:45 Ondansetron HCl 4 mg Q4HP PRN IV 02/21/25 11:45 Docusate Sodium 100 mg BIDPRN PRN PO 02/21/25 11:45 Acetaminophen 650 mg Q6HP PRN PO 02/21/25 11:45 02/22/25 14:15 650 MG Ceftriaxone Sodium 50 ml @ 100 mls/hr DAILY@09 IV 02/22/25 09:00 02/24/25 09:42 100 MLS/HR Clindamycin Phosphate 50 ml @ 50 mls/hr Q8HR IV 02/21/25 14:00 02/25/25 05:54 50 MLS/HR Albuterol 2.5 mg Q6HR NEB 02/25/25 06:00 02/25/25 06:02 2.5 MG Laboratory Results Laboratory Tests 02/22/25 05:46 Urinalysis Test 02/21/25 08:41 Urine Color Light-yellow (Yellow) Urine Clarity Clear (Clear) Urine pH 6.5 (5.0-9.0) Urine Specific [place] 1.019 (1.001-1.035) Urine Protein Negative (Negative) Urine Ketones Negative (Negative) Urine Blood Negative /uL (Negative) Urine Nitrite Negative (Negative) Urine Bilirubin Negative (Negative) Urine Urobilinogen Normal mg/dL (Negative) Urine Leukocyte Esterase 3+ /uL (Negative) Urine RBC 3 /hpf (0 - 4) Urine Microscopic WBC 17 /HPF (0-5) H Urine Squamous Epithelial Cells Few /hpf (<5) Urine Bacteria Few /hpf (None Seen) H Urine Glucose Normal mg/dL (Normal) Microbiology Microbiology Date/Time Source Procedure Growth Status 02/21/25 18:41 Nose MRSA Screen - Final Complete 02/21/25 09:18 Blood Blood Culture - Preliminary NO GROWTH AFTER 72 HOURS OF INCUBATION. Resulted 02/21/25 08:41 Voided Urine Urine Culture - Final Complete Labs and/or images reviewed: Labs reviewed by me, Image(s) reviewed by me Assessment/Plan Assessment/Plan Covering: # Sepsis with leukocytosis due to bilateral lower extremities cellulitis and suspected UTI # Bilateral lower extremities cellulitis # Nonobstructing right renal calculi # Asthma; not in exacerbation # Suspected UTI # Homelessness # Obesity Discontinued IV ceftriaxone; to continue IV clindamycin Reviewed the available cultures including blood, urine, and wound Reviewed lab work and previous imaging studies Wound care nurse is following [employer] [facility] is following Continue nebulizers as needed Consulted Physical therapy for assessment for SNF placement in the setting of homelessness Counseled the patient on the importance of adopting healthy lifestyle with diet and exercise in order to lose weight Continue pain management as needed DVT prophylaxis Continue monitoring Late Entry. This medical document was created using an electronic medical record system with computerized dictation system. Although this document has been carefully reviewed, there might still be some phonetic and typographical errors. These areas are purely typographical due to imperfections of the software programs, and do not reflect any compromise in the patient's medical care. Plan discussed with: Patient, Other (Nurse) My Orders Orders - PANTERA SMALLS MD Procedure Category Date Status Time Complete Blood Count LAB 02/25/25 Logged 07:22 Comprehensive LAB 02/25/25 Logged Metabolic Panel 07:22 * [facility] CONS 02/25/25 Transmitted Consult Enoxaparin Sodium PHA 02/25/25 Transmitted (Lovenox) 10:00 Date of Service: Feb 25, 2025 Billing Provider: PANTERA SMALLS MD Common Visit Codes: [id number] INP/OBS CARE(HIGH) PANTERA SMALLS MD Feb 25, 2025 07:30
[2025-02-25 09:43] LABS: Hematocrit 41.5 % (36.0-46.0); Hemoglobin 14.0 g/dL (12.2-16.2); Mean Corpuscular Hemoglobin 31.2 pg (28.0-32.0); Mean Corpuscular Volume 92.0 fL (80.0-100.0); Nucleated Red Blood Cells % 0.0 %
[2025-02-25] MEDS: ENOXAPARIN SOD 40 MG/0.4 ML SYRINGE SC SCH (09:54)
[2025-02-25 09:55] LABS: Alanine Aminotransferase 22 U/L (7-40); Albumin 4.1 g/dL (3.2-4.8); Alkaline Phosphatase 66 U/L (46-116); Anion Gap 9 (5-15); BUN/Creatinine Ratio 15.7 (10.0-20.0); Blood Urea Nitrogen 11 mg/dL (9-23); Calcium 10.1 mg/dL (8.7-10.4); Carbon Dioxide 27 mmol/L (20-31); Chloride 105 mmol/L (98-107); Potassium 4.2 mmol/L (3.5-5.1); Sodium 141 mmol/L (136-145); Total Protein 6.1 g/dL (5.7-8.2)
[2025-02-25 09:56] LABS: Bilirubin, Total 0.4 mg/dL (0.2-1.0)
[2025-02-25 10:01] LABS: Glucose 165 mg/dL (74-106)
[2025-02-26] VITALS (10 sets, daily range): BP systolic 106–139; BP diastolic 62–84; PULSE 82–95; RESP 16–18; TEMP 97.5–98.3; O2SAT 92–100
--- NOTE | 2025-02-26 06:18 | DVHPN2 ---
Subjective Almost no lower extremities pain Reviewed: Care Plan, H&P, Labs, Medications, Previous Orders, Radiology Changes from previous H/P or p: Changes Objective Vitals Vital Signs Date Time Temp Pulse Resp B/P (MAP) Pulse Ox O2 Delivery O2 Flow Rate FiO2 02/26/25 06:07 82 16 100 02/26/25 06:01 Room Air* 0 21 02/26/25 05:00 97.5 106/62 (77) 97.5 Intake/Output Intake and Output 02/26/25 07:00 Intake Total 2100 ml Balance 2100 ml Intake Oral 2000 ml IV Total 100 ml # Voids 9 # Bowel Movements 5 General Appearance: Alert, Oriented X3, Cooperative, No acute distress HEENT: Atraumatic Lungs: Clear to auscultation, Normal air movement Cardiovascular: Regular rate, Normal S1, Normal S2 Abdomen: Normal bowel sounds, Soft, No tenderness Extremities: Other (Clean legs dressing) Neuro: Normal speech, Cranial nerves 3-12 NL Skin: Other (Refer to nursing documentation) Psych/Mental Status: Mental status NL, Mood NL Medications Current Medications Medications Dose Ordered Sig/Fabian Route Start Time Stop Time Status Last Admin Dose Admin Acetaminophen/ Hydrocodone Bitart 1 tab Q4HP PRN PO 02/21/25 11:45 Ondansetron HCl 4 mg Q4HP PRN IV 02/21/25 11:45 Docusate Sodium 100 mg BIDPRN PRN PO 02/21/25 11:45 Acetaminophen 650 mg Q6HP PRN PO 02/21/25 11:45 02/22/25 14:15 650 MG Clindamycin Phosphate 50 ml @ 50 mls/hr Q8HR IV 02/21/25 14:00 02/26/25 04:49 50 MLS/HR Albuterol 2.5 mg Q6HR NEB 02/25/25 06:00 02/26/25 06:01 2.5 MG Enoxaparin Sodium 40 mg DAILY SC 02/25/25 10:00 02/25/25 09:54 40 MG Laboratory Results Laboratory Tests 02/25/25 09:12 Chemistry Test 02/25/25 09:12 Albumin 4.1 g/dL (3.2-4.8) Calcium Level 10.1 mg/dL (8.7-10.4) Total Protein 6.1 g/dL (5.7-8.2) LFT Test 02/25/25 09:12 Alanine Aminotransferase (ALT) 22 U/L (7-40) Alkaline Phosphatase 66 U/L (46-116) Aspartate Amino Transferase (AST) 17 U/L (13-40) Total Bilirubin 0.4 mg/dL (0.2-1.0) Urinalysis Test 02/21/25 08:41 Urine Color Light-yellow (Yellow) Urine Clarity Clear (Clear) Urine pH 6.5 (5.0-9.0) Urine Specific [place] 1.019 (1.001-1.035) Urine Protein Negative (Negative) Urine Ketones Negative (Negative) Urine Blood Negative /uL (Negative) Urine Nitrite Negative (Negative) Urine Bilirubin Negative (Negative) Urine Urobilinogen Normal mg/dL (Negative) Urine Leukocyte Esterase 3+ /uL (Negative) Urine RBC 3 /hpf (0 - 4) Urine Microscopic WBC 17 /HPF (0-5) H Urine Squamous Epithelial Cells Few /hpf (<5) Urine Bacteria Few /hpf (None Seen) H Urine Glucose Normal mg/dL (Normal) Microbiology Microbiology Date/Time Source Procedure Growth Status 02/21/25 18:41 Nose MRSA Screen - Final Complete 02/21/25 09:18 Blood Blood Culture - Preliminary NO GROWTH AFTER 72 HOURS OF INCUBATION. Resulted 02/21/25 08:41 Voided Urine Urine Culture - Final Complete Labs and/or images reviewed: Labs reviewed by me, Image(s) reviewed by me Assessment/Plan Assessment/Plan Covering: A 65-year-old homeless female patient; with asthma presented to the emergency depart with bilateral lower extremities pain and swelling. # Sepsis with leukocytosis due to bilateral lower extremities cellulitis and suspected UTI # Bilateral lower extremities cellulitis # Nonobstructing right renal calculi # Asthma; not in exacerbation # Suspected UTI # Homelessness # Obesity Finished five days of IV antibiotics Negative cultures including blood, urine, and wound Reviewed lab work and previous imaging studies Provided with wound care supply upon discharge Lead Sprinkler provided penitentiary information To continue inhalers Physical therapy assessment indicated that the patient is independent and does not need placement in a SNF Counseled the patient on the importance of adopting healthy lifestyle with diet and exercise in order to lose weight No need for benign management upon discharge To follow up with Dr. Smalls on Monday in discharge clinic Late Entry. This medical document was created using an electronic medical record system with computerized dictation system. Although this document has been carefully reviewed, there might still be some phonetic and typographical errors. These areas are purely typographical due to imperfections of the software programs, and do not reflect any compromise in the patient's medical care. Plan discussed with: Patient, Other (Nurse) My Orders Orders - PANTERA SMALLS MD Procedure Category Date Status Time * [facility] [employer] CONS 02/25/25 Transmitted Consult Enoxaparin Sodium PHA 02/25/25 In Process (Lovenox) 10:00 Pt Request For Service PT 02/25/25 Logged 07:27 Basic Metabolic Panel LAB 02/26/25 Logged 04:00 Date of Service: Feb 26, 2025 Billing Provider: PANTERA SMALLS MD Common Visit Codes: [id number] INP/OBS CARE(MOD) PANTERA SMALLS MD Feb 26, 2025 06:18
[2025-02-26 06:58] LABS: Anion Gap 10 (5-15); Carbon Dioxide 25 mmol/L (20-31); Chloride 106 mmol/L (98-107); Potassium 4.6 mmol/L (3.5-5.1); Sodium 141 mmol/L (136-145)
[2025-02-26 06:59] LABS: Calcium 10.1 mg/dL (8.7-10.4)
[2025-02-26 07:04] LABS: BUN/Creatinine Ratio 23.9 (10.0-20.0); Blood Urea Nitrogen 16 mg/dL (9-23); Glucose 99 mg/dL (74-106)
--- NOTE | 2025-02-26 11:39 | DVHDS2 ---
Discharge Summary Date of Admission Feb 21, 2025 at 11:38 Date of Discharge: Feb 26, 2025 Admitting Diagnosis Lower extremities pain and swelling Wounds: Lower extremities cellulitis; please kindly refer to nursing documentation Labs/Diagnostic Data: Laboratory Results Test 02/26/25 05:39 02/25/25 09:12 02/21/25 09:18 02/21/25 08:41 Sodium Level 141 mmol/L (136-145) Potassium Level 4.6 mmol/L (3.5-5.1) Chloride Level 106 mmol/L (98-107) Carbon Dioxide Level 25 mmol/L (20-31) Anion Gap 10 (5-15) Blood Urea Nitrogen 16 mg/dL (9-23) Creatinine 0.67 mg/dL (0.550-1.02) Glomerular Filtration Rate Calc 98 mL/min (>90) BUN/Creatinine Ratio 23.9 (10.0-20.0) Serum Glucose 99 mg/dL (74-106) Calcium Level 10.1 mg/dL (8.7-10.4) White Blood Count 7.1 10^3/uL (4.4-10.8) Red Blood Count 4.51 10^6/uL (4.0-5.20) Hemoglobin 14.0 g/dL (12.2-16.2) Hematocrit 41.5 % (36.0-46.0) Mean Corpuscular Volume 92.0 fL (80.0-100.0) Mean Corpuscular Hemoglobin 31.2 pg (28.0-32.0) Mean Corpuscular Hemoglobin Concent 33.9 g/dL (32.0-36.0) Red Cell Distribution Width 14.3 % (11.8-14.3) Platelet Count 188 10^3/uL (140-450) Mean Platelet Volume 8.7 fL (6.9-10.8) Neutrophils (%) (Auto) 66.1 % (37.0-80.0) Lymphocytes (%) (Auto) 19.9 % (10.0-50.0) Monocytes (%) (Auto) 8.6 % (0.0-12.0) Eosinophils (%) (Auto) 4.4 % (0.0-7.0) Basophils (%) (Auto) 1.0 % (0.0-2.0) Neutrophils # (Auto) 4.7 10 ^3/uL (1.6-8.6) Lymphocytes # (Auto) 1.4 10 ^3/uL (0.4-5.4) Monocytes # (Auto) 0.6 10 ^3/uL (0-1.3) Eosinophils # (Auto) 0.3 10 ^3/uL (0-0.8) Basophils # (Auto) 0.1 10 ^3/uL (0-0.2) Nucleated Red Blood Cells 0.0 % Total Bilirubin 0.4 mg/dL (0.2-1.0) Aspartate Amino Transferase (AST) 17 U/L (13-40) Alanine Aminotransferase (ALT) 22 U/L (7-40) Alkaline Phosphatase 66 U/L (46-116) Total Protein 6.1 g/dL (5.7-8.2) Albumin 4.1 g/dL (3.2-4.8) Lactic Acid Level 1.8 mmol/L (0.4-2.0) Urine Color Light-yellow (Yellow) Urine Clarity Clear (Clear) Urine pH 6.5 (5.0-9.0) Urine Specific [place] 1.019 (1.001-1.035) Urine Protein Negative (Negative) Urine Ketones Negative (Negative) Urine Blood Negative /uL (Negative) Urine Nitrite Negative (Negative) Urine Bilirubin Negative (Negative) Urine Urobilinogen Normal mg/dL (Negative) Urine Leukocyte Esterase 3+ /uL (Negative) Urine RBC 3 /hpf (0 - 4) Urine Microscopic WBC 17 /HPF (0-5) Urine Squamous Epithelial Cells Few /hpf (<5) Urine Bacteria Few /hpf (None Seen) Urine Glucose Normal mg/dL (Normal) Other Laboratory Tests 02/26/25 05:39 02/25/25 09:12 Brief Hx & Hospital Course: Covering: A 65-year-old homeless female patient; with asthma presented to the emergency depart with bilateral lower extremities pain and swelling. # Sepsis with leukocytosis due to bilateral lower extremities cellulitis and suspected UTI # Bilateral lower extremities cellulitis # Nonobstructing right renal calculi # Asthma; not in exacerbation # Suspected UTI # Homelessness # Obesity Finished five days of IV antibiotics Negative cultures including blood, urine, and wound Reviewed lab work and previous imaging studies Provided with wound care supply upon discharge Radar Engineer provided half-way information To continue inhalers Physical therapy assessment indicated that the patient is independent and does not need placement in a SNF Counseled the patient on the importance of adopting healthy lifestyle with diet and exercise in order to lose weight No need for benign management upon discharge To follow up with Dr. Smalls on Monday in discharge clinic Late Entry. This medical document was created using an electronic medical record system with computerized dictation system. Although this document has been carefully reviewed, there might still be some phonetic and typographical errors. These areas are purely typographical due to imperfections of the software programs, and do not reflect any compromise in the patient's medical care. Condition at Discharge: Stable Final Diagnosis/Problems List Sepsis with leukocytosis due to bilateral lower extremities cellulitis and suspected UTI Rest of diagnoses as above Discharge Disposition: Homeless; will be living in her car; declined half-way Discharge Instruct/Medications Diet: Regular Activity: No Restrictions, As Tolerated Follow Up/Referral: Dr. Smalls/Dr. Mancilla at 09:30 am on Monday03/03/2025 at 10 am at [facility] Medications: Continue home inhalers Scheduled Albuterol Sulfate (Albuterol Sulfate Hfa), 108 MCG IN TID Fluticasone-Salmeterol (Advair Diskus 250/50), 1 PUFF INH BID Discontinued Medications Azithromycin (Azithromycin), 1 TAB PO DAILY Azithromycin (Azithromycin), 1 TAB PO DAILY Clindamycin Hcl (Clindamycin Hcl), 1 CAP PO TID Methylprednisolone (Medrol Dosepak), 4 MG PO UD Methylprednisolone (Medrol Dosepak), 4 MG PO UD Prednisone (Prednisone), 60 MG PO DAILY Discharge Statement: "Patient was advised to return to the ER or call 911 if any headaches, dizziness, shortness of breath, chest pain, abdominal pain, bleeding, fevers, or worsening of medical condition. Patient was counseled about treatment plan, medications, possible side effects, patientverbalized understanding. All questions were answered to the best of my ability. This discharge took greater then 30 minutes in planning, reviewing documentation, counseling the patient, and discussing with other team members." ASSESSMENT ASSESSMENT Assessment Sepsis with leukocytosis due to bilateral lower extremities cellulitis and suspected UTI Date of Service: Feb 26, 2025 Billing Provider: PANTERA SMALLS MD Common Visit Codes: [id number] DISCH DAY >30min PANTERA SMALLS MD Feb 26, 2025 11:39
== END 2025-02-26 15:32 | disposition home or self-care (01) | DRG 720 ==
LOC: ER 08:18 → OVERFLOW 11:38 → CENTRAL 17:42
PROVIDERS: ADMIT Internal Medicine; ATTEND Internal Medicine
DX: A41.9 Sepsis, unspecified organism (principal); L03.115 Cellulitis of right lower limb; N39.0 Urinary tract infection, site not specified; L03.116 Cellulitis of left lower limb; J45.909 Unspecified asthma, uncomplicated; N20.0 Calculus of kidney; A46 Erysipelas; E66.9 Obesity, unspecified; Z68.32 Body mass index [BMI] 32.0-32.9, adult; Z59.00 Homelessness unspecified; Z88.2 Allergy status to sulfonamides
CPT/HCPCS: 36415; 80048; 80053; 81001; 83605; 85025; 87040; 87081; 87086; 87205; 94640; 96365; 97110; 97116; 97163; 97530; G0378; J3490

== ENCOUNTER 2025-03-01 10:28 | Inpatient (IN) | payer OTHER ==
[~2025-03-01] VITALS: Ht 162.6 cm; Wt 91.2 kg
[~2025-03-01 10:28] MED LIST changes: -AZIT500T66 PO; -CLIN1CAP70 PO; -METH4PAK PO; -PRED20TA2 PO
--- NOTE | 2025-03-01 10:38 | ED.PDOC ---
Musculoskeletal HPI Comments This is a 65 year-old female, with a PMHX of Asthma, presents to the ED with a chief complaint of swelling to bilateral ankles with associated rash and pus as of weeks ago. Patient reports coming to the ED X2 days ago where she was diagnosed with cellulitis. Patient reports an increase of swelling and redness at the site, so she came to the ED for further care. Patient states she has a future appt with a doctor on Monday. Patient additionally reports some mild SOB but otherwise has no further complaints at this time. Patient denies N/V/D, fever, chills, cough, or chest pain. Chief Complaint: Extremity Swelling Time Seen by MD: 10:37 Primary Care Provider: NONE Reviewed Notes: Medications, Allergies Allergies: Coded Allergies: Sulfa Antibiotics (Verified Allergy, Severe, 11/20/24) Home Meds Active Scripts Albuterol Sulfate (Albuterol Sulfate Hfa) 108 Mcg/Act Aer, 108 MCG IN TID, #120 AER Prov:LOW HEAD 02/07/25 Fluticasone-Salmeterol (Advair Diskus 250/50) 1 Puff Ih, 1 PUFF INH BID, #1 INHALER 5 Refills Prov:ESAU WYATT MD 11/25/24 Discontinued Scripts Prednisone (Prednisone) 20 Mg Tab, 60 MG PO DAILY, #15 TAB Prov:LOW HEAD 02/07/25 Methylprednisolone (Medrol Dosepak) 4 Mg Oscar, 4 MG PO UD, #21 TAB UAD Prov:ESAU WYATT MD 01/20/25 Clindamycin Hcl (Clindamycin Hcl) 300 Mg Cap, 1 CAP PO TID, #45 CAP Prov:ESAU WYATT MD 01/20/25 Azithromycin (Azithromycin) 500 Mg Tab, 1 TAB PO DAILY, #7 TAB Prov:ESAU WYATT MD 01/20/25 Methylprednisolone (Medrol Dosepak) 4 Mg Oscar, 4 MG PO UD, #21 TAB UAD Prov:ESAU WYATT MD 11/25/24 Azithromycin (Azithromycin) 500 Mg Tab, 1 TAB PO DAILY, #7 TAB Prov:ESAU WYATT MD 11/25/24 Information Source: Patient Mode of Arrival: Ambulatory Location: Bilateral Extremity Location: Other (ankle ) Timing: Weeks (1) Severity: Moderate Able to Move Extremity: Yes Bear Weight: Fully Pain: Moderate Onset of Symptoms: Spontaneous Symptoms: Swelling, Pain Associated signs and symptoms: Swelling, Ankle pain (bilateral ) Past Medical History PAST MEDICAL HISTORY: Asthma Surgical History: Denies all surgeries [employer] History: 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 all 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 Family History Family History: Reviewed,noncontributory to illness Social History Smoker: Non-Smoker Alcohol: Denies ETOH Use Drugs: Denies Drug Use Lives In: Homeless Constitutional: denies: chills, diaphoresis, fatigue, fever, malaise, sweats, weakness, others EENTM: denies: blurred vision, double vision, ear bleeding, ear discharge, ear drainage, ear pain, ear ringing, eye pain, eye redness, hearing loss, mouth pain, mouth swelling, nasal discharge, nose bleeding, nose congestion, nose pain, photophobia, tearing, throat pain, throat swelling, voice changes, others Respiratory: denies: cough, hemoptysis, orthopnea, SOB at rest, shortness of breath, SOB with excertion, stridor, wheezing, others Cardiovascular: denies: chest pain, dizzy spells, diaphoresis, Dyspnea on exertion, edema, irregular heart beat, left arm pain, lightheadedness, palpitations, PND, syncope, others Gastrointestinal: denies: abdomen distended, abdominal pain, blood streaked bowels, constipated, diarrhea, dysphagia, difficulty swallowing, hematemesis, melena, nausea, poor appetite, poor fluid intake, rectal bleeding, rectal pain, vomiting, others Genitourinary: denies: abnormal vagina bleeding, burning, dyspareunia, dysuria, flank pain, frequency, hematuria, incontinence, pain, , vagina discharge, urgency, others Neurological: denies: dizziness, fainting, headache, left sided numbness, left sided weakness, numbness, paresthesia, pre-existing deficit, right sided numbness, right sided weakness, seizure, speech problems, tingling, tremors, weakness, others Musculoskeletal: reports: joint swelling, others (swelling of bilateral ankles ); denies: back pain, gout, joint pain, muscle pain, muscle stiffness, neck pain Integumetry: reports: rash; denies: bruises, change in color, change in hair/nails, dryness, laceration, lesions, lumps, wounds, others Allergic/Immunocompromised: denies: Difficulty Healing, Frequent Infections, Hives, Itching, others Hematologic/Lymphatic: denies: anemia, blood clots, easy bleeding, easy bruising, swollen glands, others Endocrine: denies: excessive hunger, excessive sweating, excessive thirst, excessive urination, flushing, intolerance to cold, intolerance to heat, unexplained weight gain, unexplained weight loss, others Psychiatric: denies: anxiety, bipolar disorder, depression, hopeless, panic disorder, schizophrenia, sleepless, suicidal, others All Other Systems: Reviewed and Negative Physical Exam General Appearance: Moderate Distress HEENT: Normal ENT Inspection, Pharynx Normal, TMs Normal Neck: Full Range of Motion, Non-Tender, Normal, Normal Inspection Respiratory: Chest Non-Tender, Lungs Clear, No Accessory Muscle Use, No Respiratory Distress, Normal Breath Sounds Cardiovascular: No Edema, No JVD, No Murmur, No Gallop, Normal Peripheral Pulses, Regular Rate/Rhythm Breast Exam: Deferred Gastrointestinal: No Organomegaly, Non Tender, No Pulsatile Mass, Normal Bowel Sounds, Soft Genitalia: Deferred Pelvic: Deferred Rectal: Deferred Extremities: Swelling (Right lower extremity) Musculoskeletal : Apperance: Normal Neurologic: Alert, No Motor Deficits, No Sensory Deficits Cerebellar Function: Normal Reflexes: Normal Skin: Wounds (Right lower extremity) Peripheral Pulses: 3+ Radial (R), 3+ Radial (L) Lymphatic: No Adenopathy Was a procedure done? Was a procedure done?: No Differential Diagnosis EXT Differential Diagnosis: Cellulitis, Fracture, Sprain X-Ray, Labs, Meds, VS Vital Signs Date Time Temp Pulse Resp B/P (MAP) Pulse Ox O2 Delivery O2 Flow Rate FiO2 03/01/25 12:07 84 12 96 Room Air* 0 21 03/01/25 10:30 98.7 102 18 145/71 96 98.7 Lab Test 03/01/25 11:24 Range/Units White Blood Count 8.9 # 4.4-10.8 10^3/uL Red Blood Count 4.70 4.0-5.20 10^6/uL Hemoglobin 14.4 12.2-16.2 g/dL Hematocrit 43.3 36.0-46.0 % Mean Corpuscular Volume 92.0 80.0-100.0 fL Mean Corpuscular Hemoglobin 30.7 28.0-32.0 pg Mean Corpuscular Hemoglobin Concent 33.4 32.0-36.0 g/dL Red Cell Distribution Width 14.0 11.8-14.3 % Platelet Count 227 140-450 10^3/uL Mean Platelet Volume 8.4 6.9-10.8 fL Neutrophils (%) (Auto) 62.4 37.0-80.0 % Lymphocytes (%) (Auto) 23.0 10.0-50.0 % Monocytes (%) (Auto) 10.3 0.0-12.0 % Eosinophils (%) (Auto) 3.3 0.0-7.0 % Basophils (%) (Auto) 1.0 0.0-2.0 % Neutrophils # (Auto) 5.6 1.6-8.6 10 ^3/uL Lymphocytes # (Auto) 2.1 0.4-5.4 10 ^3/uL Monocytes # (Auto) 0.9 0-1.3 10 ^3/uL Eosinophils # (Auto) 0.3 0-0.8 10 ^3/uL Basophils # (Auto) 0.1 0-0.2 10 ^3/uL Nucleated Red Blood Cells 0.0 % Sodium Level 140 136-145 mmol/L Potassium Level 3.9 3.5-5.1 mmol/L Chloride Level 107 98-107 mmol/L Carbon Dioxide Level 24 20-31 mmol/L Anion Gap 9 5-15 Blood Urea Nitrogen 19 9-23 mg/dL Creatinine 0.66 0.550-1.02 mg/dL Glomerular Filtration Rate Calc 98 >90 mL/min BUN/Creatinine Ratio 28.8 H 10.0-20.0 Serum Glucose 96 74-106 mg/dL Calcium Level 9.2 8.7-10.4 mg/dL Current Medications Medications (Trade) Dose Ordered Sig/Fabian Route Start Time Stop Time Status Last Admin Ceftriaxone Sodium 50 ml @ 100 mls/hr ONCE ONCE IV 03/01/25 11:15 03/01/25 11:44 DC 03/01/25 12:03 Clindamycin Phosphate 50 ml @ 50 mls/hr ONCE ONCE IV 03/01/25 11:15 03/01/25 12:14 DC 03/01/25 12:03 [facility] [id number] [place] [id number] Ph: [phone] DIAGNOSTIC IMAGING Diagnostic Imaging Report : [id number] Signed PATIENT: ISRAEL PAGAN YVONNEACCT: [id number] UNIT: [id number] : 1960 LOC: ER ROOM / BED: / AGE / SEX: 65 / F ADM STATUS: REG ER SERVICE 1104 ORDERING PHYSICIAN: MERCEDES OVALLE MD PROCEDURE(s): RLDVT - RT Lower DVT REASON: dvt ORDER NUMBER(s): [id number], ACCESSION NUMBER(s): [id number] RIGHT lower extremity venous duplex Clinical History: DVT Comparison: None Technique: Duplex Doppler evaluation of the deep venous systems of RIGHT lower extremities from the common femoral veins to the popliteal veins including color Doppler and spectral/pulsed waveform analysis was performed. Findings: RIGHT SIDE: The common femoral vein demonstrates appropriate compressibility and waveform variability. There is compressibility/patency of the great saphenous vein at the proximal thigh. The femoral vein demonstrates appropriate compressibility and waveform variability. The deep femoral vein demonstrates appropriate compressibility and waveform variability. The popliteal vein demonstrates appropriate compressibility and waveform variability. There is normal compressibility at the tibioperoneal trunk. Impression: 1. No right femoropopliteal deep venous thrombosis. Patient alert. Has a wound in the right lower extremity. Swelling of the right lower extremity. Vitals stable. Denies shortness a breath. She will need intravenous antibiotics. Hemoglobin within normal limits. Reviewed her previous visit. Explained to the patient. Continue monitoring. Time of 1ST Reevaluation: 11:06 Reevaluation 1ST: Unchanged Patient Education/Counseling: Diagnosis, Treatment Family Education/Counseling: No Family Present Departure 1 Departure Time of Disposition: 11:56 Impression: Primary Impression: Cellulitis of both lower extremities Disposition: 09 ADMITTED INPATIENT Admit to: Med Surg Condition: Guarded Critical Care Note Critical Care Time?: No Stability Stability form required: No Heart Score Heart Score: Heart Score Response (Comments) Value History N/A 0 EKG N/A 0 Age N/A 0 Risk Factors N/A 0 Troponin N/A 0 Total 0 I personally scribed for MERCEDES OVALLE MD ([email or web address]) on 03/01/25 at 10:38. Electronically submitted by Faby Green ([employer]). I personally scribed for MERCEDES OVALLE MD ([email or web address]) on 03/01/25 at 11:11. Electronically submitted by Faby Green ([employer]). I personally scribed for MERCEDES OVALLE MD ([email or web address]) on 03/01/25 at 11:13. Electronically submitted by Faby Green ([employer]). I personally scribed for MERCEDES OVALLE MD ([email or web address]) on 03/01/25 at 12:48. Electronically submitted by Faby Green ([employer]). MERCEDES OVALLE MD Mar 01, 2025 10:38
[2025-03-01 11:32] LABS: Hematocrit 43.3 % (36.0-46.0); Hemoglobin 14.4 g/dL (12.2-16.2); Mean Corpuscular Hemoglobin 30.7 pg (28.0-32.0); Mean Corpuscular Volume 92.0 fL (80.0-100.0); Nucleated Red Blood Cells % 0.0 %
[2025-03-01 11:40] LABS: Chloride 107 mmol/L (98-107); Potassium 3.9 mmol/L (3.5-5.1); Sodium 140 mmol/L (136-145)
[2025-03-01 11:41] LABS: Anion Gap 9 (5-15); Carbon Dioxide 24 mmol/L (20-31)
[2025-03-01 11:42] LABS: Calcium 9.2 mg/dL (8.7-10.4)
[2025-03-01 11:46] LABS: BUN/Creatinine Ratio 28.8 (10.0-20.0); Blood Urea Nitrogen 19 mg/dL (9-23); Glucose 96 mg/dL (74-106)
[2025-03-01] MEDS: cefTRIAXone 1GM/50ML D5W 50 ML IV ONE (12:03)
[2025-03-01] MEDS: CLINDAMYCIN 300MG IV 50 ML IV ONE (12:03)
[2025-03-01 12:07] VITALS: PULSE 84; RESP 12; O2SAT 96
--- NOTE | 2025-03-01 12:44 | DVH ---
RIGHT lower extremity venous duplex Clinical History: DVT Comparison: None Technique: Duplex Doppler evaluation of the deep venous systems of RIGHT lower extremities from the common femor al veins to the popliteal veins including color Doppler and spectral/pulsed waveform analysis was per formed. Findings: RIGHT SIDE: The common femoral vein demonstrates appropriate compressibility and waveform variability. There is compressibility/patency of the great saphenous vein at the proximal thigh. The femoral vein demonstrates appropriate compressibility and waveform variability. The deep femoral vein demonstrates appropriate compressibility and waveform variability. The popliteal vein demonstrates appropriate compressibility and waveform variability. There is normal compressibility at the tibioperoneal trunk. Impression: 1. No right femoropopliteal deep venous thrombosis.
[2025-03-01 13:24] VITALS: BP 135/75; PULSE 98; RESP 16; TEMP 97.9; O2SAT 98
[2025-03-01] MEDS ORDERED: ONDANSETRON HCL 4 MG/2 ML VIAL IV PRN (13:30)
[2025-03-01] MEDS ORDERED: ACETAMINOPHEN 325 MG TAB PO PRN (13:30)
[2025-03-01] MEDS ORDERED: MORPHINE SULFATE INJ 2 MG/ml SYRG IV PRN (13:30)
[2025-03-01] MEDS ORDERED: HYDROcodone-ACET 5/325MG TAB PO PRN (13:30)
[2025-03-01] MEDS ORDERED: DOCUSATE SOD 100 MG CAP PO PRN (13:30)
[2025-03-01 13:47] LABS: Urine Protein, UAD Negative (Negative)
--- NOTE | 2025-03-01 13:58 | DVHHP2 ---
History of Present Illness Reason for Visit: Lower extemity swelling and pain History of Present Illness Nata Camejo is a 65-year-old female with past medical history of asthma, who came to the hospital for bilateral lower extremity pain and swelling. The patient was recently admitted and discharged on 02/26/2025 for similar complaint. She states when she was discharged her legs were doing better. However, yesterday her legs began to swell and become painful again. She still has the dressing on her left leg that she was discharged home with and on the right leg there is still a small bandage on the medial aspect that she states she can not take off because it hurts. Pulmonary: Asthma Smoke: No ALCOHOL: none Drugs: None Lives: Homeless Review of Systems Constitutional: No: Fever, Chills, Sweats, Weakness, Malaise, Other Eyes: No: Pain, Vision change, Conjunctivae inflammation, Eyelid inflammation, Other, Redness ENT: No: Ear pain, Ear discharge, Nose pain, Nose discharge, Nose congestion, Mouth pain, Mouth swelling, Throat pain, Throat swelling, Other Respiratory: No: Cough, Dry, Shortness of breath, SOB with excertion, Wheezing, Hemoptysis, Pleuritic Pain, Sputum, Wheezing, Other Cardiovascular: No: Chest Pain, Palpitations, Orthopnea, Paroxysmal Noc. Dyspnea, Edema, Lt Headedness, Other Gastrointestinal: No: Nausea, Vomiting, Abdominal Pain, Diarrhea, Constipation, Melena, Hematochezia, Other Genitourinary: No Dysuria, No Frequency, No Incontinence, No Hematuria, No Retention, No Other Musculoskeletal: No: other, neck pain, shoulder pain, arm pain, back pain, hand pain, leg pain, foot pain Skin: Other (edema, redness, and swelling of bilateral lower extremities); No: Rash, Lesions, Jaundice, Bruising Neurological: No: Weakness, Numbness, Incoordination, Change in speech, Confusion, Seizures, Other Allergies: Coded Allergies: Sulfa Antibiotics (Verified Allergy, Severe, 11/20/24) Medications Current Medications Medications Dose Ordered Sig/Fabian Route Start Time Stop Time Status Last Admin Dose Admin Acetaminophen/ Hydrocodone Bitart 1 tab Q4HP PRN PO 03/01/25 13:30 UNV Ondansetron HCl 4 mg Q4HP PRN IV 03/01/25 13:30 UNV Docusate Sodium 100 mg BIDPRN PRN PO 03/01/25 13:30 UNV Acetaminophen 650 mg Q6HP PRN PO 03/01/25 13:30 UNV Morphine Sulfate 2 mg Q4HPRN PRN IV 03/01/25 13:30 UNV Exam Vital Signs Vital Signs Date Time Temp Pulse Resp B/P (MAP) Pulse Ox O2 Delivery O2 Flow Rate FiO2 03/01/25 12:07 84 12 96 Room Air* 0 21 03/01/25 10:30 98.7 145/71 98.7 General Appearance: Alert, Oriented X3, Cooperative, mild distress HEENT: Atraumatic, PERRLA Respiratory: Clear to auscultation, Normal air movement Cardiovascular: Regular rate, Normal S1, Normal S2 Abdominal: Normal bowel sounds, Soft, No tenderness, No hepatospenomegaly Extremities: No clubbing, No cyanosis, Other (bilateral lower extremity edema, redness, and pain) Skin: No significant lesion (Cellulitis of both lower extremities) Neuro: Normal gait, Normal speech, Strength at 5/5 X4 ext Psych/Mental Status: Mental status NL, Mood NL Labs/Xrays Labs Test 03/01/25 11:24 Range/Units White Blood Count 8.9 # 4.4-10.8 10^3/uL Red Blood Count 4.70 4.0-5.20 10^6/uL Hemoglobin 14.4 12.2-16.2 g/dL Hematocrit 43.3 36.0-46.0 % Mean Corpuscular Volume 92.0 80.0-100.0 fL Mean Corpuscular Hemoglobin 30.7 28.0-32.0 pg Mean Corpuscular Hemoglobin Concent 33.4 32.0-36.0 g/dL Red Cell Distribution Width 14.0 11.8-14.3 % Platelet Count 227 140-450 10^3/uL Mean Platelet Volume 8.4 6.9-10.8 fL Neutrophils (%) (Auto) 62.4 37.0-80.0 % Lymphocytes (%) (Auto) 23.0 10.0-50.0 % Monocytes (%) (Auto) 10.3 0.0-12.0 % Eosinophils (%) (Auto) 3.3 0.0-7.0 % Basophils (%) (Auto) 1.0 0.0-2.0 % Neutrophils # (Auto) 5.6 1.6-8.6 10 ^3/uL Lymphocytes # (Auto) 2.1 0.4-5.4 10 ^3/uL Monocytes # (Auto) 0.9 0-1.3 10 ^3/uL Eosinophils # (Auto) 0.3 0-0.8 10 ^3/uL Basophils # (Auto) 0.1 0-0.2 10 ^3/uL Nucleated Red Blood Cells 0.0 % Sodium Level 140 136-145 mmol/L Potassium Level 3.9 3.5-5.1 mmol/L Chloride Level 107 98-107 mmol/L Carbon Dioxide Level 24 20-31 mmol/L Anion Gap 9 5-15 Blood Urea Nitrogen 19 9-23 mg/dL Creatinine 0.66 0.550-1.02 mg/dL Glomerular Filtration Rate Calc 98 >90 mL/min BUN/Creatinine Ratio 28.8 H 10.0-20.0 Serum Glucose 96 74-106 mg/dL Calcium Level 9.2 8.7-10.4 mg/dL SEPSIS Sepsis Screen Date sepsis recognized/suspect: Mar 01, 2025 Time Sepsis recognized/suspect: 1030 Recent Procedure: No On Antibiotic Therapy: No Respiratory Rate >20: No Heart Rate >90: Yes Temp<36 C (96.8 F) or >38.3 C: No SBP <90 or MAP <65 mmHG: No New Acute Mental Status Change: No Is the patient on CPAP, BIPAP,: No Physician Orders Urinalysis (03/01/25 11:04) Rt Lower Dvt (03/01/25 11:04) Admit (03/01/25 13:30) Code Status (03/01/25 13:30) 2 Gm Sodium Diet (03/01/25 Lunch) Hydrocodone-Acet 5/325mg Tab ([place] 5/32 (03/01/25 13:30) Ondansetron Hcl (Zofran) (03/01/25 13:30) Docusate Sodium Capsule (Colace Capsule) (03/01/25 13:30) Complete Blood Count (03/02/25 04:00) Comprehensive Metabolic Panel (03/02/25 04:00) Condition: Serious (03/01/25 13:30) Acetaminophen Tablet (Tylenol Tablet) (03/01/25 13:30) Morphine Sulfate Injection (03/01/25 13:30) Wound Culture W/ Gs (03/01/25 13:32) * Wound Consult (03/01/25 ) Clindamycin Ivpb Cleocin (03/01/25 13:45) Ceftriaxone Ivpb Rocephin (03/02/25 09:00) NS (03/01/25 13:45) Vital Signs Date Time Temp Pulse Resp B/P (MAP) Pulse Ox O2 Delivery O2 Flow Rate FiO2 03/01/25 12:07 84 12 96 Room Air* 0 21 03/01/25 10:30 98.7 102 18 145/71 96 98.7 Laboratory Tests Test 03/01/25 11:24 White Blood Count 8.9 10^3/uL (4.4-10.8) # Medications Medications Dose Ordered Sig/Fabian Route Start Time Stop Time Status Last Admin Dose Admin Ceftriaxone Sodium 50 ml @ 100 mls/hr ONCE ONCE IV 03/01/25 11:15 03/01/25 11:44 DC 03/01/25 12:03 100 MLS/HR Clindamycin Phosphate 50 ml @ 50 mls/hr ONCE ONCE IV 03/01/25 11:15 03/01/25 12:14 DC 03/01/25 12:03 50 MLS/HR Assessment/Plan Assessment/Plan Assessment: Cellulitis of both lower extremities, Homelessness, Asthma, Plan: Admit to Med-Surg, IV antibiotics, IV hydration, Wound culture, Wound consult, Social service consult, Plan discussed with: Patient My Orders Orders - SABA BRUSH [employer] Procedure Category Date Status Time Admit ADMIT 03/01/25 Transmitted 13:30 Code Status CODE 03/01/25 Transmitted 13:30 2 Gm Sodium Diet DIET 03/01/25 Transmitted Lunch Hydrocodone-Acet PHA 03/01/25 Logged 5/325mg Tab (Defiance 13:30 Ondansetron Hcl PHA 03/01/25 Logged (Zofran) 13:30 Docusate Sodium PHA 03/01/25 Logged Capsule (Colace 13:30 Complete Blood Count LAB 03/02/25 Verified 04:00 Comprehensive LAB 03/02/25 Verified Metabolic Panel 04:00 Condition: Serious DANIEL 03/01/25 In Process 13:30 Acetaminophen Tablet PHA 03/01/25 Logged (Tylenol Tablet) 13:30 Morphine Sulfate PHA 03/01/25 Logged Injection 13:30 Wound Culture W/ Gs YENY 03/01/25 Transmitted 13:32 * Wound Consult CONS 03/01/25 Transmitted Clindamycin Ivpb PHA 03/01/25 Transmitted Cleocin 13:45 Ceftriaxone Ivpb PHA 03/02/25 Transmitted Rocephin 09:00 NS PHA 03/01/25 Transmitted 13:45 Date of Service: Mar 01, 2025 Billing Provider: SABA BRUSH Common Visit Codes: [id number] INP/OBS CARE (MOD) SABA BRUSH Mar 01, 2025 13:58
[2025-03-01] MEDS: SODIUM CHLORIDE 0.9% 1,000 ML IV ONE (14:09)
[2025-03-01] MEDS: CLINDAMYCIN 600MG IV 50 ML IV ONE (14:09)
[2025-03-02] VITALS (9 sets, daily range): BP systolic 109–144; BP diastolic 64–90; PULSE 85–116; RESP 15–20; TEMP 96.7–98.8; O2SAT 92–99
[2025-03-02 07:25] LABS: Hematocrit 42.2 % (36.0-46.0); Hemoglobin 14.0 g/dL (12.2-16.2); Mean Corpuscular Hemoglobin 31.5 pg (28.0-32.0); Mean Corpuscular Volume 95.0 fL (80.0-100.0); Nucleated Red Blood Cells % 0.2 %
[2025-03-02 07:29] LABS: Alanine Aminotransferase 26 U/L (7-40); Albumin 4.4 g/dL (3.2-4.8); Alkaline Phosphatase 70 U/L (46-116); Anion Gap 10 (5-15); BUN/Creatinine Ratio 26.5 (10.0-20.0); Blood Urea Nitrogen 18 mg/dL (9-23); Calcium 9.3 mg/dL (8.7-10.4); Carbon Dioxide 24 mmol/L (20-31); Chloride 106 mmol/L (98-107); Glucose 104 mg/dL (74-106); Potassium 4.5 mmol/L (3.5-5.1); Sodium 140 mmol/L (136-145); Total Protein 6.3 g/dL (5.7-8.2)
[2025-03-02 07:30] LABS: Bilirubin, Total 0.7 mg/dL (0.2-1.0)
[2025-03-02] MEDS: cefTRIAXone 1GM/50ML D5W 50 ML IV SCH (10:56)
--- NOTE | 2025-03-02 11:27 | DVHPN2 ---
Reviewed: Care Plan, H&P, Labs, Medications, Previous Orders, Radiology Changes from previous H/P or p: No Changes Eyes: No Pain, No Vision change, No Conjunctivae inflammation, No Eyelid inflammation, No Other, No Redness ENT: No Ear pain, No Ear discharge, No Nose pain, No Nose discharge, No Nose congestion, No Mouth pain, No Mouth swelling, No Throat pain, No Throat swelling, No Other Cardiovascular: No Chest Pain, No Palpitations, No Orthopnea, No Paroxysmal Noc. Dyspnea, No Edema, No Lt Headedness, No Other Respiratory: No Cough, No Dry, No Shortness of breath, No SOB with excertion, No Wheezing, No Hemoptysis, No Pleuritic Pain, No Sputum, No Other Gastrointestinal: No Nausea, No Vomiting, No Abdominal Pain, No Diarrhea, No Constipation, No Melena, No Hematochezia, No Other Genitourinary: No Dysuria, No Frequency, No Incontinence, No Hematuria, No Retention, No Other Musculoskeletal: No other, No neck pain, No shoulder pain, No arm pain, No back pain, No hand pain, No leg pain, No foot pain Skin: No Rash, No Lesions, No Jaundice, No Bruising; Other (edema, redness, and swelling of bilateral lower extremities) Objective Vitals Vital Signs Date Time Temp Pulse Resp B/P (MAP) Pulse Ox O2 Delivery O2 Flow Rate FiO2 03/02/25 09:00 97.4 94 20 125/79 (94) 94 97.4 03/02/25 08:00 Room Air* 0 21 Medications Current Medications Medications Dose Ordered Sig/Fabian Route Start Time Stop Time Status Last Admin Dose Admin Acetaminophen/ Hydrocodone Bitart 1 tab Q4HP PRN PO 03/01/25 13:30 Ondansetron HCl 4 mg Q4HP PRN IV 03/01/25 13:30 Docusate Sodium 100 mg BIDPRN PRN PO 03/01/25 13:30 Acetaminophen 650 mg Q6HP PRN PO 03/01/25 13:30 Morphine Sulfate 2 mg Q4HPRN PRN IV 03/01/25 13:30 Ceftriaxone Sodium 50 ml @ 100 mls/hr DAILY@09 IV 03/02/25 09:00 03/02/25 10:56 100 MLS/HR Laboratory Results Laboratory Tests 03/02/25 06:35 Chemistry Test 03/01/25 11:24 03/02/25 06:35 Calcium Level 9.2 mg/dL (8.7-10.4) 9.3 mg/dL (8.7-10.4) Albumin 4.4 g/dL (3.2-4.8) Total Protein 6.3 g/dL (5.7-8.2) LFT Test 03/02/25 06:35 Alanine Aminotransferase (ALT) 26 U/L (7-40) Alkaline Phosphatase 70 U/L (46-116) Aspartate Amino Transferase (AST) 23 U/L (13-40) Total Bilirubin 0.7 mg/dL (0.2-1.0) Urinalysis Test 03/01/25 10:41 Urine Color Colorless (Yellow) Urine Clarity Clear (Clear) Urine pH 6.0 (5.0-9.0) Urine Specific [place] 1.006 (1.001-1.035) Urine Protein Negative (Negative) Urine Ketones Negative (Negative) Urine Blood Negative /uL (Negative) Urine Nitrite Negative (Negative) Urine Bilirubin Negative (Negative) Urine Urobilinogen Normal mg/dL (Negative) Urine Leukocyte Esterase 2+ /uL (Negative) Urine RBC 2 /hpf (0 - 4) Urine Microscopic WBC 5 /HPF (0-5) Urine Squamous Epithelial Cells Few /hpf (<5) Urine Bacteria Few /hpf (None Seen) H Urine Glucose Normal mg/dL (Normal) Labs and/or images reviewed: Labs reviewed by me, Image(s) reviewed by me Assessment/Plan Assessment/Plan # Sepsis with leukocytosis due to bilateral lower extremities cellulitis and suspected UTI: Rocephin blood cultures wound cultures # Bilateral lower extremities cellulitis # Nonobstructing right renal calculi # Asthma; not in exacerbation # Suspected UTI # Homelessness # Obesity Social service consult for change of insurance from [facility] to [facility] Patient was Discharged from this hospital on 02/26/2025 Plan discussed with: Patient Date of Service: Mar 02, 2025 Billing Provider: ESAU WYATT MD Common Visit Codes: [id number] INP/OBS CARE(HIGH) ESAU WYATT MD Mar 02, 2025 11:27
[2025-03-03 01:00] VITALS: BP 101/70; PULSE 81; RESP 18; TEMP 98.2; O2SAT 92
[2025-03-03 05:00] VITALS: BP 114/69; PULSE 75; RESP 16; TEMP 97.9; O2SAT 93
[2025-03-03 09:00] VITALS: BP 153/83; PULSE 86; RESP 18; TEMP 98.4; O2SAT 96
[2025-03-03] MEDS ORDERED: LEVO500T91 PO (12:21)
--- NOTE | 2025-03-03 12:22 | DVHPN2 ---
Reviewed: Care Plan, H&P, Labs, Medications, Previous Orders, Radiology Changes from previous H/P or p: No Changes Eyes: No Pain, No Vision change, No Conjunctivae inflammation, No Eyelid inflammation, No Other, No Redness ENT: No Ear pain, No Ear discharge, No Nose pain, No Nose discharge, No Nose congestion, No Mouth pain, No Mouth swelling, No Throat pain, No Throat swelling, No Other Cardiovascular: No Chest Pain, No Palpitations, No Orthopnea, No Paroxysmal Noc. Dyspnea, No Edema, No Lt Headedness, No Other Respiratory: No Cough, No Dry, No Shortness of breath, No SOB with excertion, No Wheezing, No Hemoptysis, No Pleuritic Pain, No Sputum, No Other Gastrointestinal: No Nausea, No Vomiting, No Abdominal Pain, No Diarrhea, No Constipation, No Melena, No Hematochezia, No Other Genitourinary: No Dysuria, No Frequency, No Incontinence, No Hematuria, No Retention, No Other Musculoskeletal: No other, No neck pain, No shoulder pain, No arm pain, No back pain, No hand pain, No leg pain, No foot pain Skin: No Rash, No Lesions, No Jaundice, No Bruising; Other (edema, redness, and swelling of bilateral lower extremities) Objective Vitals Vital Signs Date Time Temp Pulse Resp B/P (MAP) Pulse Ox O2 Delivery O2 Flow Rate FiO2 03/03/25 09:00 98.4 86 18 153/83 (106) 96 98.4 03/03/25 08:00 Room Air* 0 21 Intake/Output Intake and Output 03/03/25 07:00 Intake Total 2180 ml Output Total 2500 ml Balance -320 ml Intake Oral 2180 ml Output Urine Total 2500 ml # Voids 3 # Bowel Movements 1 Medications Current Medications Medications Dose Ordered Sig/Fabian Route Start Time Stop Time Status Last Admin Dose Admin Acetaminophen/ Hydrocodone Bitart 1 tab Q4HP PRN PO 03/01/25 13:30 Ondansetron HCl 4 mg Q4HP PRN IV 03/01/25 13:30 Docusate Sodium 100 mg BIDPRN PRN PO 03/01/25 13:30 Acetaminophen 650 mg Q6HP PRN PO 03/01/25 13:30 Morphine Sulfate 2 mg Q4HPRN PRN IV 03/01/25 13:30 Ceftriaxone Sodium 50 ml @ 100 mls/hr DAILY@09 IV 03/02/25 09:00 03/03/25 09:40 100 MLS/HR Laboratory Results Laboratory Tests 03/02/25 06:35 Urinalysis Test 03/01/25 10:41 Urine Color Colorless (Yellow) Urine Clarity Clear (Clear) Urine pH 6.0 (5.0-9.0) Urine Specific [place] 1.006 (1.001-1.035) Urine Protein Negative (Negative) Urine Ketones Negative (Negative) Urine Blood Negative /uL (Negative) Urine Nitrite Negative (Negative) Urine Bilirubin Negative (Negative) Urine Urobilinogen Normal mg/dL (Negative) Urine Leukocyte Esterase 2+ /uL (Negative) Urine RBC 2 /hpf (0 - 4) Urine Microscopic WBC 5 /HPF (0-5) Urine Squamous Epithelial Cells Few /hpf (<5) Urine Bacteria Few /hpf (None Seen) H Urine Glucose Normal mg/dL (Normal) Microbiology Microbiology Date/Time Source Procedure Growth Status 03/01/25 17:47 Nose MRSA Screen - Final Complete Labs and/or images reviewed: Labs reviewed by me, Image(s) reviewed by me Assessment/Plan Assessment/Plan # Sepsis with leukocytosis due to bilateral lower extremities cellulitis : Rocephin # Bilateral lower extremities cellulitis # Nonobstructing right renal calculi # Asthma; not in exacerbation # Homelessness # Obesity Social service consult for change of insurance [facility] to [facility] Patient was Discharged from this hospital on 02/26/2025 Plan discussed with: Patient My Orders Orders - ESAU WYATT MD Procedure Category Date Status Time * Dietary Consult CONS 03/02/25 Transmitted 18:02 Cleanse Wound With DANIEL 03/02/25 In Process Wound Clean 12:25 Date of Service: Mar 03, 2025 Billing Provider: ESAU WYATT MD Common Visit Codes: [id number] INP/OBS CARE(HIGH) ESAU WYATT MD Mar 03, 2025 12:22
--- NOTE | 2025-03-03 12:26 | DVHDS2 ---
Discharge Summary Date of Admission Mar 01, 2025 at 13:30 Date of Discharge: Mar 03, 2025 Admitting Diagnosis Bilateral lower leg cellulitis Wounds: Chronic bilateral lower leg cellulitis Labs/Diagnostic Data: Laboratory Results Test 03/02/25 06:35 03/01/25 10:41 White Blood Count 8.4 10^3/uL (4.4-10.8) Red Blood Count 4.44 10^6/uL (4.0-5.20) Hemoglobin 14.0 g/dL (12.2-16.2) Hematocrit 42.2 % (36.0-46.0) Mean Corpuscular Volume 95.0 fL (80.0-100.0) Mean Corpuscular Hemoglobin 31.5 pg (28.0-32.0) Mean Corpuscular Hemoglobin Concent 33.2 g/dL (32.0-36.0) Red Cell Distribution Width 13.9 % (11.8-14.3) Platelet Count 208 10^3/uL (140-450) Mean Platelet Volume 8.5 fL (6.9-10.8) Neutrophils (%) (Auto) 65.5 % (37.0-80.0) Lymphocytes (%) (Auto) 19.2 % (10.0-50.0) Monocytes (%) (Auto) 9.0 % (0.0-12.0) Eosinophils (%) (Auto) 5.1 % (0.0-7.0) Basophils (%) (Auto) 1.2 % (0.0-2.0) Neutrophils # (Auto) 5.5 10 ^3/uL (1.6-8.6) Lymphocytes # (Auto) 1.6 10 ^3/uL (0.4-5.4) Monocytes # (Auto) 0.8 10 ^3/uL (0-1.3) Eosinophils # (Auto) 0.4 10 ^3/uL (0-0.8) Basophils # (Auto) 0.1 10 ^3/uL (0-0.2) Nucleated Red Blood Cells 0.2 % Sodium Level 140 mmol/L (136-145) Potassium Level 4.5 mmol/L (3.5-5.1) Chloride Level 106 mmol/L (98-107) Carbon Dioxide Level 24 mmol/L (20-31) Anion Gap 10 (5-15) Blood Urea Nitrogen 18 mg/dL (9-23) Creatinine 0.68 mg/dL (0.550-1.02) Glomerular Filtration Rate Calc 97 mL/min (>90) BUN/Creatinine Ratio 26.5 (10.0-20.0) Serum Glucose 104 mg/dL (74-106) Calcium Level 9.3 mg/dL (8.7-10.4) Total Bilirubin 0.7 mg/dL (0.2-1.0) Aspartate Amino Transferase (AST) 23 U/L (13-40) Alanine Aminotransferase (ALT) 26 U/L (7-40) Alkaline Phosphatase 70 U/L (46-116) Total Protein 6.3 g/dL (5.7-8.2) Albumin 4.4 g/dL (3.2-4.8) Urine Color Colorless (Yellow) Urine Clarity Clear (Clear) Urine pH 6.0 (5.0-9.0) Urine Specific [place] 1.006 (1.001-1.035) Urine Protein Negative (Negative) Urine Ketones Negative (Negative) Urine Blood Negative /uL (Negative) Urine Nitrite Negative (Negative) Urine Bilirubin Negative (Negative) Urine Urobilinogen Normal mg/dL (Negative) Urine Leukocyte Esterase 2+ /uL (Negative) Urine RBC 2 /hpf (0 - 4) Urine Microscopic WBC 5 /HPF (0-5) Urine Squamous Epithelial Cells Few /hpf (<5) Urine Bacteria Few /hpf (None Seen) Urine Glucose Normal mg/dL (Normal) Other Laboratory Tests 03/02/25 06:35 Brief Hx & Hospital Course: 55-year-old female with a chronic bilateral lower leg cellulitis recently discharged came in complaining of increasing redness and swelling found to be in sepsis secondary to extremity cellulitis treated with Rocephin patient has a history of asthma and possible homelessness social service consult was placed patient advised that she will go back to live in her vehicle and declined any resources for homelessness. Patient being discharged home on Levaquin. During the last admission she will discharged on clindamycin which did not work Consults/Reason for consult None Operations or Procedures None Condition at Discharge: Fair Final Diagnosis/Problems List # Sepsis with leukocytosis due to bilateral lower extremities cellulitis : Rocephin # Bilateral lower extremities cellulitis # Nonobstructing right renal calculi # Asthma; not in exacerbation # Homelessness # Obesity Discharge Disposition: Home Discharge Instruct/Medications Diet: Regular Activity: Light activity Follow Up/Referral: Follow up with the discharge clinic in one week Medications: Levaquin Transmitted to pharmacy Scheduled Albuterol Sulfate (Albuterol Sulfate Hfa), 108 MCG IN TID Fluticasone-Salmeterol (Advair Diskus 250/50), 1 PUFF INH BID Levofloxacin Hemihydrate (Levaquin 500 Mg), 1 TAB PO DAILY Discontinued Medications Azithromycin (Azithromycin), 1 TAB PO DAILY Azithromycin (Azithromycin), 1 TAB PO DAILY Clindamycin Hcl (Clindamycin Hcl), 1 CAP PO TID Methylprednisolone (Medrol Dosepak), 4 MG PO UD Methylprednisolone (Medrol Dosepak), 4 MG PO UD Prednisone (Prednisone), 60 MG PO DAILY 39 (Time taken for discharge summary 39 minutes) Discharge Statement: "Patient was advised to return to the ER or call 911 if any headaches, dizziness, shortness of breath, chest pain, abdominal pain, bleeding, fevers, or worsening of medical condition. Patient was counseled about treatment plan, medications, possible side effects, patientverbalized understanding. All questions were answered to the best of my ability. This discharge took greater then 30 minutes in planning, reviewing documentation, counseling the patient, and discussing with other team members." ASSESSMENT ASSESSMENT Hospital Course Improved Assessment # Sepsis with leukocytosis due to bilateral lower extremities cellulitis : Rocephin # Bilateral lower extremities cellulitis # Nonobstructing right renal calculi # Asthma; not in exacerbation # Homelessness # Obesity Date of Service: Mar 03, 2025 Billing Provider: ESAU WYATT MD Common Visit Codes: [id number] DISCH DAY >30min ESAU WYATT MD Mar 03, 2025 12:26
[2025-03-03 13:00] VITALS: BP 129/77; PULSE 72; RESP 16; TEMP 98; O2SAT 96
[2025-03-03 16:52] VITALS: BP_SYST 129; BP_SYST 96; BP_DIAS 58; BP_DIAS 77; PULSE 72; RESP 16; RESP 18; TEMP 36.8; O2SAT 96; O2SAT 99
== END 2025-03-03 19:00 | disposition home or self-care (01) | DRG 720 ==
LOC: ER 10:28 → OVERFLOW 13:30 → WEST WING 23:48
PROVIDERS: ADMIT Family Medicine; ATTEND Family Medicine
DX: A41.9 Sepsis, unspecified organism (principal); L03.115 Cellulitis of right lower limb; L03.116 Cellulitis of left lower limb; J45.909 Unspecified asthma, uncomplicated; N20.0 Calculus of kidney; E66.9 Obesity, unspecified; Z59.00 Homelessness unspecified; Z88.2 Allergy status to sulfonamides; Z79.2 Long term (current) use of antibiotics; Z79.899 Other long term (current) drug therapy; Z86.718 Personal history of other venous thrombosis and embolism; Z68.34 Body mass index [BMI] 34.0-34.9, adult
CPT/HCPCS: 36415; 80048; 80053; 81001; 85025; 87040; 87081; 87086; 93971; 96365; 96367; 96368; G0378; J3490

== ENCOUNTER 2025-03-11 21:13 | Inpatient (IN) | payer MEDICAID, OTHER ==
[~2025-03-11] VITALS: Ht 165.1 cm; Wt 85.0 kg
[~2025-03-11 21:13] MED LIST changes: +LEVO500T91 PO
[2025-03-11] MEDS ORDERED: CLINDAMYCIN 900MG IV 50 ML IV ONE (23:30)
[2025-03-11] MEDS ORDERED: cefTRIAXone 1GM/50ML D5W 50 ML IV ONE (23:30)
--- NOTE | 2025-03-11 23:47 | ED.PDOC ---
History of Present Illness(SKN HPI Comments Patient presents to ER for evaluation of increased redness/swelling to bilateral lower extremities x 1 week. Notes her symptoms got worse since seeing her PCP yesterday with associated blistering/yellow drainage to bilateral lower extremities that started today. Reports she currently is prescribed levofloxacin and reports 4/10 pain to bilateral lower extremities. Patient presents to ER ambulatory on arrival, with steady gait and notes she is homeless. Denies fever, body aches, chills, n/v or any further symptoms/complaints Chief Complaint: Wound Check Time Seen by MD: 21:55 Primary Care Provider: NONE History of Present Illness: Nurses Notes, Medications, Allergies Allergies: Coded Allergies: Sulfa Antibiotics (Verified Allergy, Severe, 11/20/24) Home Meds Active Scripts Levofloxacin Hemihydrate (LEVAQUIN 500 MG) 500 Mg Tab, 1 TAB PO DAILY, #30 TAB Prov:ESAU WYATT MD 03/03/25 Albuterol Sulfate (Albuterol Sulfate Hfa) 108 Mcg/Act Aer, 108 MCG IN TID, #120 AER Prov:LOW HEAD 02/07/25 Fluticasone-Salmeterol (Advair Diskus 250/50) 1 Puff Ih, 1 PUFF INH BID, #1 INHALER 5 Refills Prov:ESAU WYATT MD 11/25/24 Information Source: Patient Mode of Arrival: Ambulatory Past Medical History PAST MEDICAL HISTORY: Asthma Past Medical History (Other): Cellulitis bilateral legs Surgical History: Denies all surgeries Family History Family History: Unknown Social History Smoker: Non-Smoker Alcohol: Denies ETOH Use Drugs: Denies Drug Use Lives In: Homeless Constitutional: denies: chills, diaphoresis, fatigue, fever, malaise, sweats, weakness, others EENTM: denies: blurred vision, double vision, ear bleeding, ear discharge, ear drainage, ear pain, ear ringing, eye pain, eye redness, hearing loss, mouth pain, mouth swelling, nasal discharge, nose bleeding, nose congestion, nose pain, photophobia, tearing, throat pain, throat swelling, voice changes, others Respiratory: denies: cough, hemoptysis, orthopnea, SOB at rest, shortness of breath, SOB with excertion, stridor, wheezing, others Cardiovascular: denies: chest pain, dizzy spells, diaphoresis, Dyspnea on exertion, edema, irregular heart beat, left arm pain, lightheadedness, palpitations, PND, syncope, others Gastrointestinal: denies: abdomen distended, abdominal pain, blood streaked bowels, constipated, diarrhea, dysphagia, difficulty swallowing, hematemesis, melena, nausea, poor appetite, poor fluid intake, rectal bleeding, rectal pain, vomiting, others Genitourinary: denies: abnormal vagina bleeding, burning, dyspareunia, dysuria, flank pain, frequency, hematuria, incontinence, pain, , vagina discharge, urgency, others Neurological: denies: dizziness, fainting, headache, left sided numbness, left sided weakness, numbness, paresthesia, pre-existing deficit, right sided numbness, right sided weakness, seizure, speech problems, tingling, tremors, weakness, others Musculoskeletal: denies: back pain, gout, joint pain, joint swelling, muscle pain, muscle stiffness, neck pain, others Integumetry: reports: others (As stated in HPI) Allergic/Immunocompromised: denies: Difficulty Healing, Frequent Infections, Hives, Itching, others Hematologic/Lymphatic: denies: anemia, blood clots, easy bleeding, easy bruising, swollen glands, others Endocrine: denies: excessive hunger, excessive sweating, excessive thirst, excessive urination, flushing, intolerance to cold, intolerance to heat, unexplained weight gain, unexplained weight loss, others Psychiatric: denies: anxiety, bipolar disorder, depression, hopeless, panic disorder, schizophrenia, sleepless, suicidal, others Physical Exam General Appearance: No Apparent Distress, Obese HEENT: PERRL/EOMI Neck: Full Range of Motion, Non-Tender, Normal Respiratory: Chest Non-Tender, Lungs Clear, No Accessory Muscle Use, No Respiratory Distress, Normal Breath Sounds Cardiovascular: No Murmur, No Gallop, Regular Rate/Rhythm Breast Exam: Deferred Gastrointestinal: NOT DONE Genitalia: Deferred Pelvic: Deferred Rectal: Deferred Extremities: No calf tenderness, Normal capillary refill, Normal range of motion Neurologic: Alert, No Motor Deficits, Normal Affect, Normal Mood, No Sensory Deficits Cerebellar Function: Normal Reflexes: Normal Skin: Dry, Warm, Other (moderate swelling/increased warmth/induration and blistering noted to bilateral lower extremities with minimal yellow drainage. No fluctuance noted) Peripheral Pulses: 2+ Radial (R), 2+ Radial (L), 2+ Brachial (R), 2+ Brachial (L) Lymphatic: No Adenopathy Was a procedure done? Was a procedure done?: No Sedation Sedation?: No Differential Diagnosis (INTG) Differential Diagnosis: Abscess, Contact Dermatitis Abscess: Erysipelas, Gas Gangrene Differential Diagnosis: Other (sepsis) X-Ray, Labs, Meds, VS Vital Signs Date Time Temp Pulse Resp B/P (MAP) Pulse Ox O2 Delivery O2 Flow Rate FiO2 03/11/25 21:15 98.0 77 16 163/83 96 98.0 Lab Test 03/11/25 23:30 Range/Units White Blood Count 6.4 4.4-10.8 10^3/uL Red Blood Count 4.15 4.0-5.20 10^6/uL Hemoglobin 12.8 12.2-16.2 g/dL Hematocrit 38.2 36.0-46.0 % Mean Corpuscular Volume 91.9 80.0-100.0 fL Mean Corpuscular Hemoglobin 30.8 28.0-32.0 pg Mean Corpuscular Hemoglobin Concent 33.6 32.0-36.0 g/dL Red Cell Distribution Width 13.9 11.8-14.3 % Platelet Count 255 140-450 10^3/uL Mean Platelet Volume 8.4 6.9-10.8 fL Neutrophils (%) (Auto) 49.2 37.0-80.0 % Lymphocytes (%) (Auto) 32.3 10.0-50.0 % Monocytes (%) (Auto) 9.9 0.0-12.0 % Eosinophils (%) (Auto) 7.5 H 0.0-7.0 % Basophils (%) (Auto) 1.1 0.0-2.0 % Neutrophils # (Auto) 3.1 1.6-8.6 10 ^3/uL Lymphocytes # (Auto) 2.1 0.4-5.4 10 ^3/uL Monocytes # (Auto) 0.6 0-1.3 10 ^3/uL Eosinophils # (Auto) 0.5 0-0.8 10 ^3/uL Basophils # (Auto) 0.1 0-0.2 10 ^3/uL Nucleated Red Blood Cells 0.0 % Sodium Level 141 136-145 mmol/L Potassium Level 4.1 3.5-5.1 mmol/L Chloride Level 107 98-107 mmol/L Carbon Dioxide Level 25 20-31 mmol/L Anion Gap 9 5-15 Blood Urea Nitrogen 19 9-23 mg/dL Creatinine 0.57 0.550-1.02 mg/dL Glomerular Filtration Rate Calc 101 >90 mL/min BUN/Creatinine Ratio 33.3 H 10.0-20.0 Serum Glucose 99 74-106 mg/dL Lactic Acid Level 1.3 0.4-2.0 mmol/L Calcium Level 9.5 8.7-10.4 mg/dL CBC reviewed without any significant abnormalities BMP reviewed without any significant abnormalities Lactic acid ordered Blood cultures ordered Hep-Lock IV ordered Rocephin 1 g IV ordered Clindamycin 900 mg IV ordered Patient verbalized understanding and agreeable with current plan of care Patient admitted to hospitalist for cellulitis of bilateral lower extremities and need for IV antibiotics Time of 1ST Reevaluation: 23:42 Reevaluation 1ST: N/A Patient Education/Counseling: Diagnosis, Treatment, Prognosis, Need For Follow Up Family Education/Counseling: No Family Present SEPSIS Sepsis Screen Date sepsis recognized/suspect: Mar 11, 2025 Time Sepsis recognized/suspect: 2118 Recent Procedure: No On Antibiotic Therapy: No Respiratory Rate >20: No Heart Rate >90: No Temp<36 C (96.8 F) or >38.3 C: No SBP <90 or MAP <65 mmHG: No New Acute Mental Status Change: No Is the patient on CPAP, BIPAP,: No Physician Orders Blood Culture (03/11/25 23:25) Heplock Iv (03/11/25 ) Cefazolin 1gm/50ml (Ancef) (03/12/25 06:00) Vital Signs Date Time Temp Pulse Resp B/P (MAP) Pulse Ox O2 Delivery O2 Flow Rate FiO2 03/11/25 21:15 98.0 77 16 163/83 96 98.0 Laboratory Tests Test 03/11/25 23:30 Lactic Acid Level 1.3 mmol/L (0.4-2.0) White Blood Count 6.4 10^3/uL (4.4-10.8) Departure 1 Departure Time of Disposition: 02:24 Impression: Primary Impression: Cellulitis of both lower extremities Disposition: 09 ADMITTED INPATIENT Condition: Stable Critical Care Note Critical Care Time?: No Stability Stability form required: No Heart Score Heart Score: Heart Score Response (Comments) Value History N/A 0 EKG N/A 0 Age N/A 0 Risk Factors N/A 0 Troponin N/A 0 Total 0 AMANDA UMAÑA Mar 11, 2025 23:47
[2025-03-12] VITALS (14 sets, daily range): BP systolic 134–157; BP diastolic 80–90; PULSE 75–116; RESP 16–22; TEMP 97.7–98.1; O2SAT 90–100
[2025-03-12] LABS: Hematocrit 38.2 % (36.0-46.0); Hemoglobin 12.8 g/dL (12.2-16.2); Mean Corpuscular Hemoglobin 30.8 pg (28.0-32.0); Mean Corpuscular Volume 91.9 fL (80.0-100.0); Nucleated Red Blood Cells % 0.0 %; Potassium 4.1 mmol/L (3.5-5.1); Sodium 141 mmol/L (136-145)
[2025-03-12 00:01] LABS: Anion Gap 9 (5-15); Calcium 9.5 mg/dL (8.7-10.4); Carbon Dioxide 25 mmol/L (20-31)
[2025-03-12 00:06] LABS: BUN/Creatinine Ratio 33.3 (10.0-20.0); Blood Urea Nitrogen 19 mg/dL (9-23); Glucose 99 mg/dL (74-106)
[2025-03-12 00:09] LABS: Chloride 107 mmol/L (98-107)
[2025-03-12] MEDS ORDERED: HYDROcodone-ACET 5/325MG TAB PO PRN (02:30)
--- NOTE | 2025-03-12 03:22 | DVHHPRES ---
History of Present Illness Resident Creating Document: WHITNEY NEWMAN RESIDENT History of Present Illness 65-year-old female PMHx of asthma, currently unhoused, residing in the car, history of recurrent COVID-19 infections, RSV, presents to the ER following recurrent both leg swellings with redness, she is noncompliant with the treatment. She is experiencing increased pain which is throbbing in nature and redness over her legs since last 2 days, which prompted her to visit her PCP, she was given levofloxacin, patient did not take the medication due to concern f or drowsiness. She believes she can not drive her car to different parking spots if she is on this medicine. Now the pain increased and patient presented to the ER. She had severe pain on admission, however, currently her pain is 5/10 after taking [place]. She is currently experiencing shortness of breath and cough with increased phlegm. She denies any chest pain, fever, abdominal pain or any other complaints. Past medical history: Asthma, nondiabetic,normotensive Past surgical history: Lung hypoplasia from , Ovarian cystectomy, tonsillectomy Home medicines: Fluticasone twice per day, albuterol sulfate 90 mcg per actuation. Smoking: Never Alcohol: Never Drugs: Never Allergies: Sulfa, coconut, wheat, banana PCP: Dr. Juarez Code status: Full code Review of Systems Respiratory: Cough, Shortness of breath Musculoskeletal: leg pain Allergies: Coded Allergies: Sulfa Antibiotics (Verified Allergy, Severe, 11/20/24) Medications Current Medications Medications Dose Ordered Sig/Fabian Route Start Time Stop Time Status Last Admin Dose Admin Cefazolin Sodium 50 ml @ 100 mls/hr Q8HR IV 03/12/25 06:00 Sodium Chloride 1,000 ml @ 60 mls/hr [id number] IV 03/12/25 02:30 Acetaminophen/ Hydrocodone Bitart 1 tab Q4HP PRN PO 03/12/25 02:30 Enoxaparin Sodium 40 mg DAILY SC 03/12/25 10:00 Prednisone 40 mg DAILY PO 03/13/25 10:00 Albuterol 1.25 mg Q4HR NEB 03/12/25 06:00 Exam Vital Signs Vital Signs Date Time Temp Pulse Resp B/P (MAP) Pulse Ox O2 Delivery O2 Flow Rate FiO2 03/11/25 21:15 98.0 77 16 163/83 96 98.0 Exam Pt is lying on bed General Appearance: Alert, Oriented X3, Cooperative, Mild distress HEENT: Atraumatic, Mucous membranes moist/pink Respiratory: Wheezing bilaterally, Normal air movement, No added sounds Cardiovascular: Regular rate, Normal S1, Normal S2, No murmurs Abdominal/ : Active bowel sounds, Soft, no distention, no tenderness Extremities: Normal pulses, bilateral erythematous, nontender leg edema up to the nuñez. Varicose veins noted Skin: No Significant rash, except past surgical scars Neuro: Normal speech, sensorimotor deficits none Psych/Mental Status: Mental status NL, Mood NL Nurse was there as cnc technician during examination Labs/Xrays Labs Test 03/11/25 23:30 Range/Units White Blood Count 6.4 4.4-10.8 10^3/uL Red Blood Count 4.15 4.0-5.20 10^6/uL Hemoglobin 12.8 12.2-16.2 g/dL Hematocrit 38.2 36.0-46.0 % Mean Corpuscular Volume 91.9 80.0-100.0 fL Mean Corpuscular Hemoglobin 30.8 28.0-32.0 pg Mean Corpuscular Hemoglobin Concent 33.6 32.0-36.0 g/dL Red Cell Distribution Width 13.9 11.8-14.3 % Platelet Count 255 140-450 10^3/uL Mean Platelet Volume 8.4 6.9-10.8 fL Neutrophils (%) (Auto) 49.2 37.0-80.0 % Lymphocytes (%) (Auto) 32.3 10.0-50.0 % Monocytes (%) (Auto) 9.9 0.0-12.0 % Eosinophils (%) (Auto) 7.5 H 0.0-7.0 % Basophils (%) (Auto) 1.1 0.0-2.0 % Neutrophils # (Auto) 3.1 1.6-8.6 10 ^3/uL Lymphocytes # (Auto) 2.1 0.4-5.4 10 ^3/uL Monocytes # (Auto) 0.6 0-1.3 10 ^3/uL Eosinophils # (Auto) 0.5 0-0.8 10 ^3/uL Basophils # (Auto) 0.1 0-0.2 10 ^3/uL Nucleated Red Blood Cells 0.0 % Sodium Level 141 136-145 mmol/L Potassium Level 4.1 3.5-5.1 mmol/L Chloride Level 107 98-107 mmol/L Carbon Dioxide Level 25 20-31 mmol/L Anion Gap 9 5-15 Blood Urea Nitrogen 19 9-23 mg/dL Creatinine 0.57 0.550-1.02 mg/dL Glomerular Filtration Rate Calc 101 >90 mL/min BUN/Creatinine Ratio 33.3 H 10.0-20.0 Serum Glucose 99 74-106 mg/dL Lactic Acid Level 1.3 0.4-2.0 mmol/L Calcium Level 9.5 8.7-10.4 mg/dL SEPSIS Sepsis Screen Date sepsis recognized/suspect: Mar 11, 2025 Time Sepsis recognized/suspect: 2118 Recent Procedure: No On Antibiotic Therapy: No Respiratory Rate >20: No Heart Rate >90: No Temp<36 C (96.8 F) or >38.3 C: No SBP <90 or MAP <65 mmHG: No New Acute Mental Status Change: No Is the patient on CPAP, BIPAP,: No Physician Orders Blood Culture (03/11/25 23:25) Heplock Iv (03/11/25 ) Cefazolin 1gm/50ml (Ancef) (03/12/25 06:00) Admit (03/12/25 02:28) Sodium Chloride 0.9% (03/12/25 02:30) Oxygen Per Hour (03/12/25 02:28) Hydrocodone-Acet 5/325mg Tab ([place] 5/32 (03/12/25 02:30) Enoxaparin Sodium (Lovenox) (03/12/25 10:00) Complete Blood Count (03/13/25 04:00) Comprehensive Metabolic Panel (03/13/25 04:00) Cardiac Diet-2gna,Lofat,Lochol (03/12/25 Breakfast) Notify Of Changes From Base (03/12/25 02:28) Albuterol Medneb (Ventolin Medneb) (03/12/25 06:00) Lt Lower Dvt (03/12/25 02:43) Rt Lower Dvt (03/12/25 02:43) Prednisone Tablet (03/13/25 10:00) Vital Signs Date Time Temp Pulse Resp B/P (MAP) Pulse Ox O2 Delivery O2 Flow Rate FiO2 03/11/25 21:15 98.0 77 16 163/83 96 98.0 Laboratory Tests Test 03/11/25 23:30 Lactic Acid Level 1.3 mmol/L (0.4-2.0) White Blood Count 6.4 10^3/uL (4.4-10.8) Assessment/Plan Assessment/Plan Bilateral leg swelling due to cellulitis Varicose vein with stasis dermatitis? -Cefazolin 1 g Q 8 IV -bilateral lower extremity Doppler ultrasound to rule out DVT ordered Mild exacerbation of asthma -albuterol med nebs -fluticasone inhaler -prednisone 40 mg IV daily Homelessness - Needs social service eval GI prophylaxis: Pantoprazole DVT prophylaxis: Lovenox Diet: Cardiac Goals of care discussed with the patient for more than 27 minutes: Full code status Case discussed with Dr. Nguyen, patient and RN Plan discussed with: Patient, Other My Orders Orders - WHITNEY NEWMAN RESIDENT Procedure Category Date Status Time Admit ADMIT 03/12/25 Transmitted 02:28 Sodium Chloride 0.9% PHA 03/12/25 In Process 02:30 Oxygen Per Hour RT 03/12/25 Transmitted 02:28 Hydrocodone-Acet PHA 03/12/25 In Process 5/325mg Tab ([place] 02:30 Enoxaparin Sodium PHA 03/12/25 In Process (Lovenox) 10:00 Complete Blood Count LAB 03/13/25 Verified 04:00 Comprehensive LAB 03/13/25 Verified Metabolic Panel 04:00 Cardiac DIET 03/12/25 Transmitted Diet-2gna,Lofat,Lochol Breakfast Notify Of Changes DANIEL 03/12/25 In Process From Base 02:28 Albuterol Medneb PHA 03/12/25 In Process (Ventolin Medneb) 06:00 Lt Lower Dvt US 03/12/25 Logged 02:43 Rt Lower Dvt US 03/12/25 Logged 02:43 Prednisone Tablet PHA 03/13/25 In Process 10:00 Date of Service: Mar 12, 2025 Billing Provider: RD NGUYEN MD Common Visit Codes: [id number] INP/OBS CARE (HIGH) WHITNEY NEWMAN Mar 12, 2025 03:22 RD NGUYEN MD Mar 12, 2025 10:59
[2025-03-12] MEDS: predniSONE 20 MG TAB PO ONE (06:10)
[2025-03-12] MEDS: ALBUTEROL SULF 2.5 MG/0.5ML(0.5%) NEB SOLN NEB SCH ×2 (06:28→13:56)
--- NOTE | 2025-03-12 08:16 | DVH ---
Bilateral lower extremity venous duplex Clinical History: Leg swelling Comparison: US RT LOWER DVT on DOS: 03/01/25 Technique: Duplex Doppler evaluation of the deep venous systems of both lower extremities from the common femora l veins to the popliteal veins including color Doppler and spectral/pulsed waveform analysis was perf ormed. Findings: RIGHT SIDE: The common femoral vein demonstrates appropriate compressibility and waveform variability. There is compressibility/patency of the great saphenous vein at the proximal thigh. The femoral vein demonstrates appropriate compressibility and waveform variability. The deep femoral vein demonstrates appropriate compressibility and waveform variability. The popliteal vein demonstrates appropriate compressibility and waveform variability. There is normal compressibility at the tibioperoneal trunk. LEFT SIDE: The common femoral vein demonstrates appropriate compressibility and waveform variability. There is compressibility/patency of the great saphenous vein at the proximal thigh. The femoral vein demonstrates appropriate compressibility and waveform variability. The deep femoral vein demonstrates appropriate compressibility and waveform variability. The popliteal vein demonstrates appropriate compressibility and waveform variability. There is normal compressibility at the tibioperoneal trunk. Impression: No right or left femoropopliteal venous thrombosis.
[2025-03-12] MEDS: PANTOPRAZOLE 40 MG/10 ML VIAL INJ IV SCH (10:00)
[2025-03-12] MEDS: SODIUM CHLORIDE 0.9% 1,000 ML IV SCH (10:27)
[2025-03-12] MEDS: ENOXAPARIN SOD 40 MG/0.4 ML SYRINGE SC SCH (10:28)
[2025-03-12] MEDS: ceFAZolin 1GM/50ML 50 ML IV SCH (13:56)
--- NOTE | 2025-03-12 15:07 | DVHPNRES ---
Progress Note Date Seen: Mar 12, 2025 Resident Creating Document: ANNE-MARIE FISCHER RESIDENT Medical Necessity Reason Pt with a Central, PICC or Fol: No Subjective Review of Systems This is a 65-year-old female with a past medical history of asthma, currently unhoused, residing in the car, history of 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 The patient mentions she had blisters on both lower legs 1 and a half years back and has had recurrent, multiple episodes of the same ever since then.The pain increased yesterday and she started developing blisters which were oozing blood and pus. She has dull ache in her legs rated as a 5/10 in intensity. The pain is pulsatile and she has a pins and needles sensation associated with it. She saw her PCP where she was given levofloxacin, patient did not take the medication due to concern for drowsiness. The patient also has tenderness on the back of her lower legs. She is currently experiencing shortness of breath and cough with increased phlegm. She denies any chest pain, fever, abdominal pain or any other complaints. Venous doppler was done which was unremarkable. Past medical history: Asthma Past surgical history: Lung hypoplasia from , Ovarian cystectomy, tonsillectomy Home medicines: Fluticasone twice per day, albuterol sulfate 90 mcg per actuation. Smoking: Never Alcohol: Never Drugs: Never Allergies: Sulfa, coconut, wheat, banana PCP: Dr. Juarez Code status: Full code Patient seen and examined at bedside. Patient is alert and oriented to time, place person and responding to all questions. Eyes: No Pain, No Vision change, No Conjunctivae inflammation, No Eyelid inflammation, No Other, No Redness ENT: No Ear pain, No Ear discharge, No Nose pain, No Nose discharge, No Nose congestion, No Mouth pain, No Mouth swelling, No Throat pain, No Throat swelling, No Other Cardiovascular: No Chest Pain, No Palpitations, No Orthopnea, No Paroxysmal No Dyspnea, No Edema, No Lt Headedness, No Other Respiratory: Cough, No Dry, No Shortness of breath, No SOB with exertion, No Wheezing, No Hemoptysis, No Pleuritic Pain, No Sputum, No Other Gastrointestinal: No Nausea, No Vomiting, No Abdominal Pain, No Diarrhea, No Constipation, No Melena, No Hematochezia, No Other Genitourinary: No Dysuria, No Frequency, No Incontinence, No Hematuria, No Retention, No Other musculoskeletal: leg pain b/l General Appearance: Cooperative. Well developed. Well nourished. NAD Head Exam: Normal inspection Neck Exam: Normal inspection. Non-tender. Normal alignment Pulmonary/Respiratory: Chest non-tender. bilateral wheezing, no crackles, no wheezing. Cardiovascular/Chest: Regular rate and rhythm. No murmurs. No JVD. Peripheral Pulses: 2+ Radial (R). 2+ Radial (L). 2+ Pedal (R). 2+ Pedal (L) Abdominal Exam: Normal bowel sounds. Soft. normal abdomen, no visible veins, Nontender. No hepatospenomegaly. No masses Ankle Exam: Negative ankle edema Lower extremities: bilateral erythematous leg edema upto nuñez, tenderness more on dorsal aspect, blisters ,varicose veins, decreased pulses Neuro/Mental Status: A&O x4. Coherent. Thoughts/Psych: Normal thought pattern. Appropriate mood and affect. Good judgement and insight Skin Exam: Normal inspection. Normal color. Warm. Dry Objective vital signs Vital Sign Date Time Temp Pulse Resp B/P (MAP) Pulse Ox O2 Delivery O2 Flow Rate FiO2 03/12/25 13:00 98.1 103 22 134/82 (99) 93 98.1 03/12/25 10:54 0.0 21 03/12/25 06:28 Room Air medications Current Medications Medications Dose Ordered Sig/Fabian Route Start Time Stop Time Status Last Admin Dose Admin Cefazolin Sodium 50 ml @ 100 mls/hr Q8HR IV 03/12/25 06:00 03/12/25 13:56 100 MLS/HR Sodium Chloride 1,000 ml @ 60 mls/hr [id number] IV 03/12/25 02:30 03/12/25 10:27 60 MLS/HR Acetaminophen/ Hydrocodone Bitart 1 tab Q4HP PRN PO 03/12/25 02:30 Enoxaparin Sodium 40 mg DAILY SC 03/12/25 10:00 03/12/25 10:28 40 MG Prednisone 40 mg DAILY PO 03/13/25 10:00 Pantoprazole Sodium 40 mg DAILY IV 03/12/25 10:00 Albuterol 2.5 mg Q4HR NEB 03/12/25 14:00 03/12/25 13:56 2.5 MG laboratory and microbiology Laboratory Tests 03/11/25 23:30 Test 03/11/25 23:30 Range/Units Serum Glucose 99 74-106 mg/dL Labs and/or images reviewed: Labs reviewed by me, Image(s) reviewed by me Problem List/Assessment/Plan Problem List/Assessment/Plan #bilateral leg swelling , ?cellulitis -keep legs elevated -cefazolin 50ml@100 ml/hr #varicose veins #stasis dermatitis #arterial insufficiency -arterial study ordered #congestive heart failure? -Echo ordered #mild exacerbation of asthma -albuterol medneb -fluticasone inhaler -prednisone 40 mg daily PUD prophylaxis:protonix DVT prophylaxis:lovenox Goals of care: Full code, discussed for >20 minutes on 03/12/25 Plan discussed with patient Plan discussed with Dr Edward Plan discussed with: Patient My Orders My Orders Orders - ANNE-MARIE FISCHER RESIDENT Procedure Category Date Status Time Albuterol Medneb PHA 03/12/25 In Process (Ventolin Medneb) 14:00 Echo 2d Mode Cardiac US 03/12/25 Logged DOP 14:25 Bilat Low Ext Art US 03/12/25 Logged Duplex 14:26 Date of Service: Mar 12, 2025 Billing Provider: SHELLY EDWARD MD Common Visit Codes: [id number] INP/OBS CARE(HIGH) Secondary Visit Codes: [id number] CARE PLAN 30 MINUTES ANNE-MARIE FISCHER RESIDENT Mar 12, 2025 15:07 SHELLY EDWARD MD Mar 15, 2025 21:13
--- NOTE | 2025-03-12 15:48 | DVH ---
BILATERAL LOWER EXTREMITY ARTERIAL DUPLEX ULTRASOUND STUDY: REASON FOR EXAM: arterial insufficiency red,swollen and blisters on legs TECHNIQUE: The full lengths of the arterial segments were evaluated with color-flow Doppler ultrasoun d. Suspected abnormalities were evaluated with wagoner scale ultrasound. [employer] Supervisor spectral Doppler waveforms, with velocity measurements were obtained. Spectral waveforms with velocity measurements w ere obtained 2 to 4 cm central to any areas of significant stenosis. Common femoral, superficial femo ral, popliteal, posterior tibial, anterior tibial, and dorsal pedal arteries were evaluated. FINDINGS: Right: There is minimal atherosclerotic plaque in the right lower extremity. The common femoral arter y waveform is multiphasic with a brisk upstroke. The superficial femoral and popliteal arteries are p atent with multiphasic waveforms. The posterior tibial, anterior tibial, and dorsalis pedis arteries are patent with multiphasic waveforms. Left: There is minimal atherosclerotic plaque in the left lower extremity. The common femoral artery waveform is multiphasic with a brisk upstroke. The superficial femoral and popliteal arteries are pa tent with multiphasic waveforms. The posterior tibial, anterior tibial, and dorsalis pedis arteries a re patent with multiphasic waveforms. IMPRESSION: No hemodynamically significant stenosis.
[2025-03-13] VITALS (21 sets, daily range): BP systolic 125–178; BP diastolic 78–102; PULSE 65–90; RESP 16–22; TEMP 97.8–98.6; O2SAT 93–100
[2025-03-13 06:14] LABS: Hematocrit 36.5 % (36.0-46.0); Hemoglobin 12.2 g/dL (12.2-16.2); Mean Corpuscular Hemoglobin 31.1 pg (28.0-32.0); Mean Corpuscular Volume 93.0 fL (80.0-100.0); Nucleated Red Blood Cells % 0.0 %
[2025-03-13 06:24] LABS: Alanine Aminotransferase 22 U/L (7-40); Albumin 4.0 g/dL (3.2-4.8); Alkaline Phosphatase 68 U/L (46-116); Anion Gap 10 (5-15); BUN/Creatinine Ratio 18.2 (10.0-20.0); Blood Urea Nitrogen 10 mg/dL (9-23); Calcium 9.4 mg/dL (8.7-10.4); Carbon Dioxide 23 mmol/L (20-31); Glucose 97 mg/dL (74-106); Potassium 3.9 mmol/L (3.5-5.1); Sodium 143 mmol/L (136-145); Total Protein 5.9 g/dL (5.7-8.2)
[2025-03-13 06:25] LABS: Bilirubin, Total 0.4 mg/dL (0.2-1.0)
[2025-03-13 06:26] LABS: Chloride 110 mmol/L (98-107)
[2025-03-13] MEDS: predniSONE 20 MG TAB PO SCH (11:42)
--- NOTE | 2025-03-13 17:28 | DVHPNRES ---
Progress Note Date Seen: Mar 13, 2025 Resident Creating Document: JEANETHZOEANNE-MARIE RESIDENT Medical Necessity Reason Pt with a Central, PICC or Fol: No Subjective Review of Systems This is a 65-year-old female with a past medical history of asthma, currently unhoused, residing in the car, history of 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 The patient mentions she had blisters on both lower legs 1 and a half years back and has had recurrent, multiple episodes of the same ever since then.The pain increased yesterday and she started developing blisters which were oozing blood and pus. She has dull ache in her legs rated as a 5/10 in intensity. The pain is pulsatile and she has a pins and needles sensation associated with it. She saw her PCP where she was given levofloxacin, patient did not take the medication due to concern for drowsiness. The patient also has tenderness on the back of her lower legs. She is currently experiencing shortness of breath and cough with increased phlegm. She mentions having frequent exacerbations of asthma in the last 4-5 years because of which she is unable to work. She denies any chest pain, fever, abdominal pain or any other complaints. Venous doppler was done which was unremarkable. The patient states the pain has reduced a little but her legs till look the same. Arterial doppler done on her lower extremities showed minimal atherosclerotic plaque in both but no hemodynamically significant stenosis. She has been explained about her condition and how sitting for prolonged durations could precipitate her condition. She has been counselled on keeping her legs elevated and using compresssion stockings when her blisters resolve. Past medical history: Asthma Past surgical history: Lung hypoplasia from , Ovarian cystectomy, tonsillectomy Home medicines: Fluticasone twice per day, albuterol sulfate 90 mcg per actuation. Smoking: Never Alcohol: Never Drugs: Never Allergies: Sulfa, coconut, wheat, banana,dust,pollen,sumac PCP: Dr. Juarez Code status: Full code Patient seen and examined at bedside. Patient is alert and oriented to time, place person and responding to all questions. Eyes: No Pain, No Vision change, No Conjunctivae inflammation, No Eyelid inflammation, No Other, No Redness ENT: No Ear pain, No Ear discharge, No Nose pain, No Nose discharge, No Nose congestion, No Mouth pain, No Mouth swelling, No Throat pain, No Throat swelling, No Other Cardiovascular: No Chest Pain, No Palpitations, No Orthopnea, No Paroxysmal No Dyspnea, No Edema, No Lt Headedness, No Other Respiratory: Cough, No Dry, Shortness of breath, No SOB with exertion, No Wheezing, No Hemoptysis, No Pleuritic Pain, No Sputum, No Other Gastrointestinal: No Nausea, No Vomiting, No Abdominal Pain, No Diarrhea, No Constipation, No Melena, No Hematochezia, No Other Genitourinary: No Dysuria, No Frequency, No Incontinence, No Hematuria, No Retention, No Other musculoskeletal: leg pain b/l General Appearance: Cooperative. Well developed. Well nourished. NAD Head Exam: Normal inspection Neck Exam: Normal inspection. Non-tender. Normal alignment Pulmonary/Respiratory: Chest non-tender. bilateral wheezing, no crackles, no wheezing. Cardiovascular/Chest: Regular rate and rhythm. No murmurs. No JVD. Peripheral Pulses: 2+ Radial (R). 2+ Radial (L). 2+ Pedal (R). 2+ Pedal (L) Abdominal Exam: Normal bowel sounds. Soft. normal abdomen, no visible veins, Nontender. No hepatospenomegaly. No masses Ankle Exam: Negative ankle edema Lower extremities: bilateral erythematous leg edema upto nuñez, shiny skin, tenderness more on dorsal aspect, blisters ,varicose veins, decreased pulses Neuro/Mental Status: A&O x4. Coherent. Thoughts/Psych: Normal thought pattern. Appropriate mood and affect. Good judgement and insight Skin Exam: Normal inspection. Normal color. Warm. Dry Objective vital signs Vital Sign Date Time Temp Pulse Resp B/P (MAP) Pulse Ox O2 Delivery O2 Flow Rate FiO2 03/13/25 16:57 65 19 125/79 (94) 94 03/13/25 14:35 Room Air* 0 21 03/13/25 13:00 98.6 98.6 Total Intake and Output 03/12/25 03/12/25 03/13/25 15:00 23:00 07:00 Intake Total 50 ml 100 ml Balance 50 ml 100 ml medications Current Medications Medications Dose Ordered Sig/Fabian Route Start Time Stop Time Status Last Admin Dose Admin Cefazolin Sodium 50 ml @ 100 mls/hr Q8HR IV 8/13/25 06:00 03/13/25 14:22 100 MLS/HR Sodium Chloride 1,000 ml @ 60 mls/hr [id number] IV 03/12/25 02:30 03/13/25 14:22 60 MLS/HR Acetaminophen/ Hydrocodone Bitart 1 tab Q4HP PRN PO 03/12/25 02:30 Enoxaparin Sodium 40 mg DAILY SC 03/12/25 10:00 03/13/25 11:42 40 MG Prednisone 40 mg DAILY PO 03/13/25 10:00 03/13/25 11:42 40 MG Pantoprazole Sodium 40 mg DAILY IV 03/12/25 10:00 Albuterol 2.5 mg Q4HR NEB 03/12/25 14:00 03/13/25 14:35 2.5 MG laboratory and microbiology Laboratory Tests 03/13/25 05:12 Test 03/13/25 05:12 Range/Units Serum Glucose 97 74-106 mg/dL Microbiology Date/Time Source Procedure Growth Status 03/11/25 23:30 Blood Blood Culture - Preliminary NO GROWTH AFTER 24 HOURS OF INCUBATION. Resulted Problem List/Assessment/Plan Problem List/Assessment/Plan #bilateral leg swelling , ?cellulitis -keep legs elevated -cefazolin 50ml@100 ml/hr #varicose veins #stasis dermatitis -counselled on keeping legs elevated -counselled to use compression stockings #arterial insufficiency -arterial study ordered-unremarkable #congestive heart failure? -Echo ordered #mild exacerbation of asthma -albuterol medneb -fluticasone inhaler -prednisone 40 mg daily PUD prophylaxis:protonix DVT prophylaxis:lovenox Goals of care: Full code, discussed for >20 minutes on 03/13/25 Plan discussed with patient Plan discussed with Dr Edward Plan discussed with: Patient My Orders My Orders Orders - ANNE-MARIE FISCHER Procedure Category Date Status Time * Wound Consult CONS 03/13/25 Transmitted * Shrimp Cleaner CONS 03/13/25 Transmitted Consult Date of Service: Mar 13, 2025 Billing Provider: SHELLY EDWARD MD Common Visit Codes: [id number] INP/OBS CARE(HIGH) ANNE-MARIE FISCHER Mar 13, 2025 17:28 SHELLY EDWARD MD Mar 15, 2025 21:14
[2025-03-14] VITALS (14 sets, daily range): BP systolic 123–155; BP diastolic 74–90; PULSE 59–105; RESP 16–18; TEMP 97.4–98.5; O2SAT 92–100
[2025-03-14 08:09] LABS: Hematocrit 34.7 % (36.0-46.0); Hemoglobin 11.6 g/dL (12.2-16.2); Mean Corpuscular Hemoglobin 31.2 pg (28.0-32.0); Mean Corpuscular Volume 92.9 fL (80.0-100.0); Nucleated Red Blood Cells % 0.0 %
[2025-03-14 08:18] LABS: Potassium 4.0 mmol/L (3.5-5.1); Sodium 144 mmol/L (136-145)
[2025-03-14 08:19] LABS: Anion Gap 8 (5-15); Calcium 9.2 mg/dL (8.7-10.4); Carbon Dioxide 26 mmol/L (20-31)
[2025-03-14 08:22] LABS: Chloride 110 mmol/L (98-107)
[2025-03-14 08:24] LABS: BUN/Creatinine Ratio 23.2 (10.0-20.0); Blood Urea Nitrogen 13 mg/dL (9-23); Glucose 89 mg/dL (74-106)
--- NOTE | 2025-03-14 11:05 | DVHDSRES ---
Discharge Summary Date of Admission Resident Creating Document: ANNE-MARIE FISCHER RESIDENT Mar 12, 2025 at 02:28 Date of Discharge: Mar 14, 2025 Admitting Diagnosis Bilateral erythematous leg swelling Wounds: Erythematous legs; present on admission Labs/Diagnostic Data: Laboratory Results Test 03/14/25 04:58 03/13/25 05:12 03/11/25 23:30 White Blood Count 8.8 10^3/uL (4.4-10.8) Red Blood Count 3.74 10^6/uL (4.0-5.20) Hemoglobin 11.6 g/dL (12.2-16.2) Hematocrit 34.7 % (36.0-46.0) Mean Corpuscular Volume 92.9 fL (80.0-100.0) Mean Corpuscular Hemoglobin 31.2 pg (28.0-32.0) Mean Corpuscular Hemoglobin Concent 33.5 g/dL (32.0-36.0) Red Cell Distribution Width 13.7 % (11.8-14.3) Platelet Count 249 10^3/uL (140-450) Mean Platelet Volume 9.3 fL (6.9-10.8) Neutrophils (%) (Auto) 70.6 % (37.0-80.0) Lymphocytes (%) (Auto) 20.5 % (10.0-50.0) Monocytes (%) (Auto) 7.8 % (0.0-12.0) Eosinophils (%) (Auto) 0.7 % (0.0-7.0) Basophils (%) (Auto) 0.4 % (0.0-2.0) Neutrophils # (Auto) 6.2 10 ^3/uL (1.6-8.6) Lymphocytes # (Auto) 1.8 10 ^3/uL (0.4-5.4) Monocytes # (Auto) 0.7 10 ^3/uL (0-1.3) Eosinophils # (Auto) 0.1 10 ^3/uL (0-0.8) Basophils # (Auto) 0 10 ^3/uL (0-0.2) Nucleated Red Blood Cells 0.0 % Sodium Level 144 mmol/L (136-145) Potassium Level 4.0 mmol/L (3.5-5.1) Chloride Level 110 mmol/L (98-107) Carbon Dioxide Level 26 mmol/L (20-31) Anion Gap 8 (5-15) Blood Urea Nitrogen 13 mg/dL (9-23) Creatinine 0.56 mg/dL (0.550-1.02) Glomerular Filtration Rate Calc 102 mL/min (>90) BUN/Creatinine Ratio 23.2 (10.0-20.0) Serum Glucose 89 mg/dL (74-106) Calcium Level 9.2 mg/dL (8.7-10.4) Total Bilirubin 0.4 mg/dL (0.2-1.0) Aspartate Amino Transferase (AST) 22 U/L (13-40) Alanine Aminotransferase (ALT) 22 U/L (7-40) Alkaline Phosphatase 68 U/L (46-116) Total Protein 5.9 g/dL (5.7-8.2) Albumin 4.0 g/dL (3.2-4.8) Lactic Acid Level 1.3 mmol/L (0.4-2.0) Other Laboratory Tests 03/14/25 04:58 Brief Hx & Hospital Course: This is a 65-year-old female who is a known case of asthma, currently unhoused, residing in the car, with a history of 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 The patient mentioned she had blisters on both lower legs 1 and a half years back and has had recurrent, multiple episodes of the same ever since then.The pain increased the next day and she started developing blisters which were oozing blood and pus. She had dull ache in her legs, rated as a 5/10 in intensity. The pain was pulsatile and she had a pins and needles sensation associated with it. She saw her PCP where she was given levofloxacin, but she did not take the medication due to concern for drowsiness. The patient also had tenderness on the back of her lower legs. She also experienced shortness of breath and cough with increased phlegm. She mentioned having frequent exacerbations of asthma in the last 4-5 years because of which she is unable to work. She denies any chest pain, fever, abdominal pain or any other complaints. Venous Doppler was done which was unremarkable. The patient states the pain has reduced a little but her legs till look the same. Arterial Doppler done on her lower extremities showed minimal atherosclerotic plaque in both but no hemodynamically significant stenosis. She has been explained about her condition and how sitting for prolonged durations could precipitate her condition. She has been counselled on keeping her legs elevated and using compression stockings when her blisters resolve. The swelling and redness decreased over the duration of her hospital course. The patient is being discharged on oral antibiotics. Past medical history: Asthma Past surgical history: Lung hypoplasia from , Ovarian cystectomy, tonsillectomy Home medicines: Fluticasone twice per day, albuterol sulfate 90 mcg per actuation. Smoking: Never Alcohol: Never Drugs: Never Allergies: Sulfa, coconut, wheat, banana,dust,pollen,sumac PCP: Dr. Smalls Code status: Full code Physical examination on the day of discharge: Patient seen and examined at bedside. Patient is alert and oriented to time, place person and responding to all questions. General Appearance: Cooperative. Well developed. Well nourished. NAD Head Exam: Normal inspection Neck Exam: Normal inspection. Non-tender. Normal alignment Pulmonary/Respiratory: Chest non-tender. bilateral wheezing, no crackles, no wheezing. Cardiovascular/Chest: Regular rate and rhythm. No murmurs. No JVD. Peripheral Pulses: 2+ Radial (R). 2+ Radial (L). 1+ Pedal (R), 1+ Pedal (L) Abdominal Exam: Normal bowel sounds. Soft. normal abdomen, no visible veins, Nontender. No hepatosplenomegaly. No masses Ankle Exam: Negative ankle edema Lower extremities: bilateral erythematous leg edema up to nuñez, shiny skin, tenderness more on dorsal aspect, blisters ,varicose veins, decreased pulses, improved from prior Neuro/Mental Status: A&O x4. Coherent. Thoughts/Psych: Normal thought pattern. Appropriate mood and affect. Good judgement and insight Skin Exam: Normal inspection. Normal color. Warm. Dry Goals of care: Full code, discussed with the patient for 20 minutes on 03/14/25 Plan discussed with patient Plan discussed with Dr Smalls Operations or Procedures Bilateral lower extremity venous duplex Clinical History: Leg swelling Comparison: US RT LOWER DVT on DOS: 03/01/25 Technique: Duplex Doppler evaluation of the deep venous systems of both lower extremities from the common femoral veins to the popliteal veins including color Doppler and spectral/pulsed waveform analysis was performed. Findings: RIGHT SIDE: The common femoral vein demonstrates appropriate compressibility and waveform variability. There is compressibility/patency of the great saphenous vein at the proximal thigh. The femoral vein demonstrates appropriate compressibility and waveform variability. The deep femoral vein demonstrates appropriate compressibility and waveform variability. The popliteal vein demonstrates appropriate compressibility and waveform variability. There is normal compressibility at the tibioperoneal trunk. LEFT SIDE: The common femoral vein demonstrates appropriate compressibility and waveform variability. There is compressibility/patency of the great saphenous vein at the proximal thigh. The femoral vein demonstrates appropriate compressibility and waveform variability. The deep femoral vein demonstrates appropriate compressibility and waveform variability. The popliteal vein demonstrates appropriate compressibility and waveform variability. There is normal compressibility at the tibioperoneal trunk. Impression: No right or left femoropopliteal venous thrombosis. TERAL LOWER EXTREMITY ARTERIAL DUPLEX ULTRASOUND STUDY: REASON FOR EXAM: arterial insufficiency red,swollen and blisters on legs TECHNIQUE: The full lengths of the arterial segments were evaluated with color- flow Doppler ultrasound. Suspected abnormalities were evaluated with wagoner scale ultrasound. Service Learning Coordinator spectral Doppler waveforms, with velocity measurements were obtained. Spectral waveforms with velocity measurements were obtained 2 to 4 cm central to any areas of significant stenosis. Common femoral, superficial femoral, popliteal, posterior tibial, anterior tibial, and dorsal pedal arteries were evaluated. FINDINGS: Right: There is minimal atherosclerotic plaque in the right lower extremity. The common femoral artery waveform is multiphasic with a brisk upstroke. The superficial femoral and popliteal arteries are patent with multiphasic waveforms. The posterior tibial, anterior tibial, and dorsalis pedis arteries are patent with multiphasic waveforms. Left: There is minimal atherosclerotic plaque in the left lower extremity. The common femoral artery waveform is multiphasic with a brisk upstroke. The superficial femoral and popliteal arteries are patent with multiphasic waveforms. The posterior tibial, anterior tibial, and dorsalis pedis arteries are patent with multiphasic waveforms. IMPRESSION: No hemodynamically significant stenosis. Condition at Discharge: Stable Final Diagnosis/Problems List #bilateral leg swelling , possible cellulitis #varicose veins #stasis dermatitis #arterial insufficiency ruled out #mild exacerbation of asthma Discharge Disposition: Homeless; lives in her car Discharge Instruct/Medications Diet: Regular Activity: No Restrictions, As Tolerated Follow Up/Referral: Please follow up in d/c clinic in 1-2 weeks Please follow up with PCP in 1-2 weeks Scheduled Albuterol Sulfate (Albuterol Sulfate Hfa), 108 MCG IN TID Cephalexin Monohydrate (Cephalexin), 1 CAP PO BID Fluticasone-Salmeterol (Advair Diskus 250/50), 1 PUFF INH BID Discontinued Medications Levofloxacin Hemihydrate (Levaquin 500 Mg), 1 TAB PO DAILY Discharge Statement: "Patient was advised to return to the ER or call 911 if any headaches, dizziness, shortness of breath, chest pain, abdominal pain, bleeding, fevers, or worsening of medical condition. Patient was counseled about treatment plan, medications, possible side effects, patientverbalized understanding. All questions were answered to the best of my ability. This discharge took greater then 30 minutes in planning, reviewing documentation, counseling the patient, and discussing with other team members." ASSESSMENT ASSESSMENT Assessment Addendum Addendum Addendum I was physically present for the miranda portions of the service provided to patient by THE RESIDENT. I have reviewed the documentation, discussed the case with resident and agree with the resident's documentation except as noted. Also the patient's clinical case was discussed with the patient's nurse. This medical document was created using an electronic medical record system with computerized dictation system. Although this document has been carefully reviewed, there might still be some phonetic and typographical errors. These areas are purely typographical due to imperfections of the software programs, and do not reflect any compromise in the patient's medical care. Late signature. Date of Service: Mar 14, 2025 Billing Provider: PANTERA SMALLS MD Common Visit Codes: 78403-ADW/OBS DISCH DAY >30min Secondary Visit Codes: 96557-[id number] CARE PLAN 30 MINUTES (20 minutes) Code Visit Code Visit Total Time (mins): 44 ANNE-MARIE FISCHER RESIDENT Mar 14, 2025 11:05 PANTERA SMALLS MD Mar 14, 2025 12:42 CRYSTAL ALLEN RESIDENT Mar 14, 2025 15:49
[2025-03-14] MEDS ORDERED: CEPH500C PO (11:37)
== END 2025-03-14 13:45 | disposition home or self-care (01) | DRG 383 ==
LOC: ER 21:13 → OVERFLOW 03-12 02:28 → CENTRAL 03-13 05:52
PROVIDERS: ADMIT Internal Medicine Geriatric Medicine; ATTEND Physician Assistant
DX: L03.115 Cellulitis of right lower limb (principal); J45.901 Unspecified asthma with (acute) exacerbation; I87.2 Venous insufficiency (chronic) (peripheral); L03.116 Cellulitis of left lower limb; I83.93 Asymptomatic varicose veins of bilateral lower extremities; Z88.2 Allergy status to sulfonamides; Z91.018 Allergy to other foods; Z59.00 Homelessness unspecified
CPT/HCPCS: 36415; 80048; 80053; 83605; 85025; 87040; 93925; 93970; 94640; G0378; J2470